=== PATIENT | male | born 1945 | race Caucasian/White ===

== ENCOUNTER 2018-05-15 14:58 | Observation (INO) | payer OTHER ==
[2018-05-15 16:18] LABS: Absolute Lymphocytes (CBC) 1.3 K/uL (0.7-4.9); Absolute Monocytes 0.5 K/uL (0.1-1.3); Absolute Neutrophil 3.8 K/uL (1.8-8.0); Eosinophils % 1.6 % (0-4.4); Hematocrit 29.5 % (39.6-49.0); Lymphocytes % 22.5 % (15.3-44.8); MCH 31.3 pg (27.0-35.0); MCV 93.3 fL (80-100); Monocytes % 8.8 % (3.3-12.3); RBC Red Blood Cell Count 3.17 M/uL (4.33-5.43)
--- NOTE | 2018-05-15 16:44 | EKG ---
Test Date: 2018-05-15 Test Time: 15:27:26 Balancing Machine Operator: AURELIANO MEASUREMENT RESULTS: Intervals: Rate: 56 CA: QRSD: 106 QT: 502 QTc: 484 Weldon: P: CA: QRS: -46 T: 144 INTERPRETIVE STATEMENTS: Atrial fibrillation with slow ventricular response Left anterior fascicular block ST & T wave abnormality, consider lateral ischemia or digitalis effect Prolonged QT Abnormal ECG Compared to ECG 10/04/2017 13:41:55 ST (T wave) deviation still present Electronically Signed On 05-15-18 16:44:09 CDT by Toñito Lockett
[2018-05-15 16:49] LABS: Albumin 3.5 g/dL (3.4-5.0); Bilirubin Direct 0.2 mg/dL (0-0.2); Bilirubin Total 0.7 mg/dL (0.2-1.0); Magnesium 2.9 mg/dL (1.8-2.4); Potassium 4.5 mmol/L (3.5-5.1)
--- NOTE | 2018-05-15 17:12 | ER ---
Nurse's Notes [facility] Name: Bill Thorpe Age: 72 yrs Sex: Male : 1945 Arrival Date: 05/15/2018 Time: 14:59 Bed 7 Private MD: Minal Herndon Diagnosis: Shortness of breath;End stage renal disease Presentation: 05/15 15:21 Presenting complaint: Patient states: " I missed dialysis on Sunday because of some ph family issues, then Sat I had severe diarrhea, cough and sneezing and I wasn't feeling well on Sunday so I missed dialysis the as well." Pt reports that he is dialyzed on Mondays and Fridays, denies CP, reports fatigue and slight SOB. Transition of care: patient was not received from another setting of care. Onset of symptoms was May 15, 2018. Risk Assessment: Do you want to hurt yourself or someone else? Patient reports no desire to harm self or others. Initial Sepsis Screen: Does the patient meet any 2 criteria? No. Patient's initial sepsis screen is negative. Does the patient have a suspected source of infection? No. Patient's initial sepsis screen is negative. Care prior to arrival: None. 15:21 Method Of Arrival: Ambulatory ph 15:21 Acuity: KRUPA 3 ph Historical: - Allergies: 15:24 Morphine; ph - Home Meds: 15:24 carvedilol 25 mg Oral tab 1 tab for Hypertension [Active]; doxazosin 4 mg Oral tab 1 ph tab once daily for Hypertension [Active]; Eliquis 2.5 mg Oral tab 1 tab [Active]; furosemide 40 mg Oral tab 1 tab once daily for EDEMA [Active]; - PMHx: 15:24 Diabetes - IDDM; ESRD; Hypertension; Hepatitis; Irregular heart rate; ph - PSHx: 15:24 cataract sx; ph - Immunization history:: Adult Immunizations up to date. - Social history:: Smoking status: Patient/guardian denies using tobacco. - Ebola Screening: : No symptoms or risks identified at this time. Screenin:00 Abuse screen: Denies threats or abuse. Denies injuries from another. Nutritional sv screening: No deficits noted. Tuberculosis screening: No symptoms or risk factors identified. Fall Risk None identified. Assessment: 16:00 General: Appears in no apparent distress. comfortable, well developed, Behavior is sv calm, cooperative, appropriate for age. Pain: Denies pain. Neuro: Level of Consciousness is awake, alert, obeys commands, Oriented to person, place, time, situation, Gait is steady, Speech is normal. Cardiovascular: Patient's skin is warm and dry. Dialysis shunt: in the left arm, with palpable thrill, with no erythema, with no edema, no bleeding noted. Respiratory: Reports shortness of breath on exertion cough that is non-productive, Respiratory effort is even, unlabored, Respiratory pattern is regular, symmetrical. Derm: Skin is pink, warm \\T\\ dry. 17:31 Reassessment: Patient appears in no apparent distress at this time. No changes from sv previously documented assessment. Patient and/or family updated on plan of care and expected duration. Pain level reassessed. Patient is alert, oriented x 3, equal unlabored respirations, skin warm/dry/pink. 18:16 Reassessment: Patient appears in no apparent distress at this time. No changes from sv previously documented assessment. Patient and/or family updated on plan of care and expected duration. Pain level reassessed. Patient is alert, oriented x 3, equal unlabored respirations, skin warm/dry/pink. Pt given a dinner tray. Vital Signs: 15:24 BP 129 / 71; Pulse 52; Resp 18; Temp 98.1; Pulse Ox 95% on R/A; Weight 94.35 kg; Height ph 5 ft. 11 in. (180.34 cm); 16:15 BP 152 / 73; Pulse 49; Resp 20; Pulse Ox 95% on R/A; sv 17:20 BP 192 / 83; Pulse 47; Resp 18; Pulse Ox 95% on R/A; sv 17:35 BP 165 / 70; Pulse 48; Resp 16; Pulse Ox 95% on R/A; sv 18:16 BP 161 / 68; Pulse 49; Resp 18; Pulse Ox 95% ; sv 15:24 Body Mass Index 29.01 (94.35 kg, 180.34 cm) ph ED Course: 14:59 Patient arrived in ED. sb2 15:03 Minal Herndon is Private Physician. sb2 15:16 Will Lind PA is PHCP. cp 15:16 William Carty MD is Attending Physician. cp 15:23 Triage completed. ph 15:25 Arm band placed on. ph 15:34 EKG done, by neurology technologist. reviewed by Will KUNZ. sm3 15:45 X-ray completed. Portable x-ray completed in exam room. Patient tolerated procedure ag1 well. 15:46 XRAY Chest (1 view) In Process Unspecified. EDMS 15:59 Minal Young, RN is Primary Nurse. sv 16:00 Patient has correct armband on for positive identification. Bed in low position. Call sv light in reach. Pulse ox on. NIBP on. Door closed. Warm blanket given. Head of bed elevated. 16:00 Missed attempt(s): 20 gauge in right forearm. Bleeding controlled, band aid applied, sv catheter tip intact. 16:05 Initial lab(s) drawn, by me, sent to lab. Inserted saline lock: 20 gauge in right sv forearm, using aseptic technique. Blood collected. Flushed right forearm with 5 ml normal saline. 16:53 Notified Nurse Practitioner and/or Physician Grease Renderer of a critical lab result(s), hb Creat 7.0. 17:11 Torrie Elizalde MD is Hospitalizing Provider. cp 19:05 No provider procedures requiring assistance completed. Patient admitted, IV remains in ak1 place. 19:08 Primary Nurse role handed off by Minal Young RN Administered Medications: 17:29 Drug: hydrALAZINE 10 mg Route: IV; Rate: calculated rate; Site: right forearm; sv 17:34 Follow up: Response: No adverse reaction; IV Status: Completed infusion; IV Intake: sv 0.5ml Point of Care Testing: Blood Glucose: 17:57 Blood Glucose: 145 mg/dL; dh3 Ranges: Intake: 17:34 IV: 1ml; Total: 1ml. sv Outcome: 17:12 Decision to Hospitalize by Provider. cp 20:15 Admitted to Med/surg accompanied by [facility], via stretcher, room 213, with chart, Report ak1 called to [place] 20:15 Condition: good 20:15 Instructed on the need for admit. 20:18 Patient left the ED. ak1 Signatures: Dispatcher [employer] EDMI Minal Young RN RN Teressa Morales RN RN ak1 Rose Shafer RN RN Renee Rosa ag1 Will Lind PA PA cp Baxter, Heather, RN RN Idalia Lopez 3 Aneglika Scott 2 Valentina Vitale 3
--- NOTE | 2018-05-15 17:12 | EDPHYS ---
Physician Documentation [facility] Name: Bill Thorpe Age: 72 yrs Sex: Male : 1945 Arrival Date: 05/15/2018 Time: 14:59 Bed 7 Private MD: Minal Herndon ED Physician William Carty HPI: 05/15 15:27 This 72 yrs old Male presents to ER via Ambulatory with complaints of Needs cp Bloodwork, Missed 3 Dialysis. 15:27 Associated signs and symptoms: Pertinent positives: shortness of breath, Pertinent cp negatives: abdominal pain, chest pain, cough, diarrhea, fever, vomiting, wheezing. 15:30 Patient reports scheduled dialysis is on Sunday and Sunday. Last completed dialysis cp over 1 week ago. Historical: - Allergies: 15:24 Morphine; ph - Home Meds: 15:24 carvedilol 25 mg Oral tab 1 tab for Hypertension [Active]; doxazosin 4 mg Oral tab 1 ph tab once daily for Hypertension [Active]; Eliquis 2.5 mg Oral tab 1 tab [Active]; furosemide 40 mg Oral tab 1 tab once daily for EDEMA [Active]; - PMHx: 15:24 Diabetes - IDDM; ESRD; Hypertension; Hepatitis; Irregular heart rate; ph - PSHx: 15:24 cataract sx; ph - Immunization history:: Adult Immunizations up to date. - Social history:: Smoking status: Patient/guardian denies using tobacco. - Ebola Screening: : No symptoms or risks identified at this time. ROS: 15:30 Constitutional: Negative for body aches, chills, fever, poor PO intake. cp 15:30 Eyes: Negative for injury, pain, redness, and discharge. cp 15:30 ENT: Negative for drainage from ear(s), ear pain, sore throat, difficulty swallowing, difficulty handling secretions. 15:30 Cardiovascular: Negative for chest pain, edema, palpitations. 15:30 Respiratory: Positive for shortness of breath, at rest. Negative for cough, wheezing. 15:30 Abdomen/GI: Negative for abdominal pain, vomiting, diarrhea, constipation, black/tarry stool, rectal bleeding. 15:30 Back: Negative for radiated pain. 15:30 Skin: Negative for cellulitis, rash. 15:30 Neuro: Negative for altered mental status, dizziness, syncope, near syncope, weakness. 15:30 All other systems are negative. Exam: 15:32 ECG was reviewed by the Attending Physician. cp 15:35 Constitutional: The patient appears in no acute distress, alert, awake, cp non-diaphoretic, non-toxic, well developed, well nourished. 15:35 Head/Face: Normocephalic, atraumatic. cp 15:35 Eyes: Periorbital structures: appear normal, Conjunctiva: normal, no exudate, no injection, Sclera: no appreciated abnormality, Lids and lashes: appear normal, bilaterally. 15:35 ENT: External ear(s): are unremarkable, Nose: is normal, Mouth: Lips: moist, Oral mucosa: moist, Posterior pharynx: is normal, airway is patent, no erythema, no exudate. 15:35 Neck: ROM/movement: is normal, is supple, without pain, no range of motions limitations, no meningismus, no nuchal rigidity. 15:35 Chest/axilla: Inspection: normal, Palpation: is normal, no crepitus, no tenderness. 15:35 Cardiovascular: Rate: bradycardic, Rhythm: irregularly irregular, Edema: is not appreciated, JVD: is not appreciated. 15:35 Respiratory: the patient does not display signs of respiratory distress, Respirations: normal, no use of accessory muscles, no retractions, no splinting, no tachypnea, labored breathing, is not present, Breath sounds: are clear throughout, no decreased breath sounds, no stridor, no wheezing. 15:35 Abdomen/GI: Inspection: abdomen appears normal, Bowel sounds: active, all quadrants, Palpation: abdomen is soft and non-tender, in all quadrants. 15:35 Back: pain, is absent, ROM is normal. 15:35 Skin: cellulitis, is not appreciated, no rash present. 15:35 Neuro: Orientation: to person, place \T\ time. Mentation: lucid, able to follow commands, Cerebellar function: is grossly normal, Motor: moves all fours, strength is normal, Gait: is steady. Vital Signs: 15:24 BP 129 / 71; Pulse 52; Resp 18; Temp 98.1; Pulse Ox 95% on R/A; Weight 94.35 kg; Height ph 5 ft. 11 in. (180.34 cm); 16:15 BP 152 / 73; Pulse 49; Resp 20; Pulse Ox 95% on R/A; sv 17:20 BP 192 / 83; Pulse 47; Resp 18; Pulse Ox 95% on R/A; sv 17:35 BP 165 / 70; Pulse 48; Resp 16; Pulse Ox 95% on R/A; sv 18:16 BP 161 / 68; Pulse 49; Resp 18; Pulse Ox 95% ; sv 15:24 Body Mass Index 29.01 (94.35 kg, 180.34 cm) ph MDM: 15:17 Patient medically screened. cp 16:00 Differential diagnosis: electrolyte abnormality, acute CO, pulmonary edema, CHF. cp 17:05 Data reviewed: vital signs, nurses notes, lab test result(s), EKG, radiologic studies, cp plain films. 17:05 Test interpretation: by ED physician or midlevel provider: ECG, plain radiologic cp studies. 17:07 Physician consultation: Luis Manuel Call DO was called at 17:07, was contacted at 17:07, cp regarding patient's condition. 17:11 Physician consultation: Torrie Elizalde MD was called at 17:11, was contacted at 17:11, cp regarding admission, to the telemetry unit. 05/15 15:26 Order name: Basic Metabolic Panel; Complete Time: 16:54 05/15 16:55 Interpretation: Normal except: CL 109; GLUC 171; BUN 97; CRE 7.00; GFR 8. 05/15 15:26 Order name: CBC with Diff; Complete Time: 16:21 05/15 16:22 Interpretation: Normal except: RBC 3.17; HGB 9.9; HCT 29.5; PLT 107. 05/15 15:26 Order name: LFT's; Complete Time: 16:54 05/15 17:00 Interpretation: Normal except: ALK 40; A/G 1.0. 05/15 15:26 Order name: Magnesium; Complete Time: 16:54 05/15 17:00 Interpretation: Abnormal: MG 2.9. 05/15 15:26 Order name: NT PRO-BNP; Complete Time: 16:54 05/15 16:55 Interpretation: Abnormal: NT PRO-BNP 79208. 05/15 17:18 Order name: Basic Metabolic Panel EDDC 05/15 15:17 Order name: EKG; Complete Time: 15:17 cp 05/15 15:26 Order name: XRAY Chest (1 view); Complete Time: 19:26 cp 05/15 19:26 Interpretation: Report review. 05/15 17:15 Order name: CONS Physician Consult EDDC 05/15 17:18 Order name: Renal EDDC 05/15 17:18 Order name: Basic Metabolic Panel EDDC 05/15 17:18 Order name: CBC with Automated Diff EDDC 05/15 17:18 Order name: CBC with Automated Diff EDDC 05/15 15:17 Order name: EKG - Nurse/Tech; Complete Time: 16:15 cp 05/15 15:26 Order name: Cardiac monitoring; Complete Time: 17:30 cp 05/15 15:26 Order name: IV Saline Lock; Complete Time: 16:14 cp 05/15 15:26 Order name: Labs collected and sent; Complete Time: 16:14 cp 05/15 15:26 Order name: O2 Per Protocol; Complete Time: 16:14 cp 05/15 15:26 Order name: O2 Sat Monitoring; Complete Time: 16:14 cp 05/15 17:18 Order name: EKG Electrocardiogram EDDC 05/15 17:18 Order name: EKG Electrocardiogram EDDC EC:32 Rate is 56 beats/min. Rhythm is irregularly irregular. QRS interval is prolonged at 106 cp msec. QT interval is prolonged at 502 msec. T waves are Inverted in leads I, aVL, V4, V5. Interpreted by me. Reviewed by me. Administered Medications: 17:29 Drug: hydrALAZINE 10 mg Route: IV; Rate: calculated rate; Site: right forearm; sv 17:34 Follow up: Response: No adverse reaction; IV Status: Completed infusion; IV Intake: sv 0.5ml Point of Care Testing: Blood Glucose: 17:57 Blood Glucose: 145 mg/dL; dh3 Ranges: Critical Glucose Levels:Adult <50 mg/dl or >400 mg/dl <40 mg/dl or >180 mg/dl Disposition: 05/15/18 17:12 Hospitalization ordered by Torrie Elizalde for Observation. Preliminary diagnosis are Shortness of breath, End stage renal disease. - Bed requested for Telemetry/MedSurg (observation). - Status is Observation. ak1 - Condition is Stable. - Problem is an acute exacerbation. - Symptoms are unchanged. UTI on Admission? No Addendum: 05/17/2018 20:00 Co-signature as Attending Physician, William Carty MD I agree with the assessment and w a plan of care. Signatures: Dispatcher [employer] Minal Edwards, RN Aaliyah Hernandez RN RN dw Krenek, Amber, RN RN ak1 Rose Shafer RN Will Spain ph, PA PA William Llamas MD MD wa Corrections: (The following items were deleted from the chart) 05/15 18:45 17:12 Hospitalization Ordered by Torrie Elizalde MD for Observation. Preliminary dw diagnosis is Shortness of breath; End stage renal disease. Bed requested for Telemetry/MedSurg (observation). Status is Observation. Condition is Stable. Problem is an acute exacerbation. Symptoms are unchanged. UTI on Admission? No. cp 20:18 18:45 05/15/2018 17:12 Hospitalization Ordered by Torrie Elizalde MD for Observation. ak1 Preliminary diagnosis is Shortness of breath; End stage renal disease. Bed requested for Telemetry/MedSurg (observation). Status is Observation. Condition is Stable. Problem is an acute exacerbation. Symptoms are unchanged. UTI on Admission? No. dw
[2018-05-15] MEDS ORDERED: ACETAMINOPHEN 500 MG TAB PO PRN (17:15)
[2018-05-15] MEDS ORDERED: HYDRALAZINE HCL 20 MG/ML VIAL ONE (17:28)
--- NOTE | 2018-05-15 18:15 | RAD REPORT ---
EXAM DESCRIPTION: Wilian Single View05/15/2018 3:48 pm CLINICAL HISTORY: sob COMPARISON: September 2017 FINDINGS: The right base remains hazy. The left lung appears clear. The heart is mildly enlarged. IMPRESSION: Right base remains hazy probably representing a combination of small to moderate pleural effusion and atelectasis
[2018-05-15 20:39] VITALS: BMI 29.9
[2018-05-15] MEDS: APIXABAN 2.5 MG TABLET PO SCH (22:15)
[2018-05-15] MEDS ORDERED: NA CHLORIDE 0.9% 1,000 ML IV PRN (22:32)
[2018-05-15] MEDS ORDERED: MANNITOL 25% 12.5 GM/50 ML VIAL IV PRN (22:32)
[2018-05-15 22:34] LABS: Urine Appearance CLEAR; Urine Bilirubin NEGATIVE (NEG); Urine Blood NEGATIVE (NEG); Urine Color YELLOW; Urine Glucose 1+ (NEG); Urine Protein 2+ (NEG); Urine Specific Gravity 1.015 (1.005-1.030); Urine Urobilinogen 0.2 mg/dL (0.2-1.0)
[2018-05-15 22:39] LABS: Urine Microscopic Reflex ORDER UMIC
[2018-05-15] MEDS ORDERED: EPOETIN ALFA 10,000 UNIT/ML VIAL IV SCH (22:45)
[2018-05-15 22:53] LABS: Urine Bacteria <20 /HPF (NONE SEEN); Urine Culture Reflex Order REFLEXED; Urine RBC <5 /HPF (NONE SEEN)
[2018-05-15] MEDS ORDERED: ALBUMIN HUMAN 25% 50 ML IV SCH (23:00)
[2018-05-16] MEDS ORDERED: DOXAZOSIN 2 MG TAB PO ONE (01:28)
[2018-05-16] MEDS ORDERED: HYDRALAZINE HCL 20 MG/ML VIAL IV ONE (01:28)
[2018-05-16] MEDS ORDERED: D50W 25 GM/50 ML SYRINGE IV PRN (01:29)
[2018-05-16] MEDS ORDERED: INSULIN 70/30 100 UNITS/ML SQ ONE ×2 (01:29)
[2018-05-16] MEDS ORDERED: GLUCAGON 1 MG/VIAL IM PRN (01:29)
[2018-05-16 04:58] VITALS: O2SAT 91
[2018-05-16 05:18] LABS: Absolute Monocytes 0.5 K/uL (0.1-1.3); Basophils % 0.5 % (0-1.3); Eosinophils % 1.6 % (0-4.4); Hematocrit 27.2 % (39.6-49.0); Lymphocytes % 18.4 % (15.3-44.8); MCH 32.2 pg (27.0-35.0); MCV 93.5 fL (80-100); MPV 8.9 fL (7.6-11.3); Monocytes % 8.6 % (3.3-12.3); RBC Red Blood Cell Count 2.91 M/uL (4.33-5.43)
[2018-05-16 05:35] LABS: Phosphorus 6.8 mg/dL (2.5-4.9); Potassium 4.4 mmol/L (3.5-5.1)
--- NOTE | 2018-05-16 06:43 | P.HP ---
Certification for Inpatient Patient admitted to: Observation With expected LOS: <2 Midnights Patient will require the following post-hospital care: None Practitioner: I am a practitioner with admitting privileges, knowledge of patient current condition, hospital course, and medical plan of care. Services: Services provided to patient in accordance with Admission requirements found in Title 42 Section 412.3 of the Code of Federal Regulations Patient History Date of Service: 05/15/18 Reason for admission: Fluid overload History of Present Illness: Patient is a 72-year-old gentleman who came into the hospital with fluid overload. Patient has missed his dialysis appointments for the last 2-3 sessions. He has actually had a stomach virus and has been having some diarrhea. Patient came into the hospital because he was feeling really poorly and felt his labs were abnormal. In the emergency room, patient had multiple studies performed. Chest x-ray revealed a small pleural effusion. Patient's labs revealed anemia along with significant uremia. Otherwise, electrolytes were within normal limits. Patient was admitted to the hospital for hemodialysis. Allergies morphine Adverse Reaction (Verified 05/15/18 22:56) confusion Home Medications: Apixaban [Eliquis] 10 mg PO DAILY 05/15/18 Calcium Acetate 1 tab PO TIDWM 05/15/18 Carvedilol 1 tab PO BID 05/15/18 Doxazosin Mesylate 4 mg PO BID 05/15/18 Furosemide 40 mg PO BID 05/15/18 Insulin Glargine,Hum.rec.anlog [Tougertrudiso Solostar] 20 unit SQ DAILY 05/15/18 - Past Medical/Surgical History Has patient received pneumonia vaccine in the past: Yes Diabetic: Yes -: DIABETES -: HTN -: ENLARGED AORTA -: AV regurgitation -: CHF -: COLONOSCOPY -: DETACHED RETINA REPAIR -: scalp surgery - Family History Father Medical History: Hypertension Mother Medical History: Hypertension, Diabetes Sister Medical History: Cancer - Social History Smoking Status: Never smoker Alcohol use: Yes CD- Drugs: No Place of Residence: Home Review of Systems 10-point ROS is otherwise unremarkable Physical Examination - Vital Signs Temperature: 97.1 F Blood Pressure: 148/82 Pulse: 62 Respirations: 16 Pulse Ox (%): 91 - Physical Exam General: Alert, In no apparent distress, Oriented x3 HEENT: Atraumatic, PERRLA, Mucous membr. moist/pink, EOMI, Sclerae nonicteric Neck: Supple, 2+ carotid pulse no bruit, No LAD, Without JVD or thyroid abnormality Respiratory: Diminished, Crackles/rales Cardiovascular: Regular rate/rhythm, Normal S1 S2, No murmurs Gastrointestinal: Normal bowel sounds, Soft and benign, Non-distended, No tenderness Musculoskeletal: No clubbing, No swelling, No tenderness Integumentary: No rashes Neurological: Normal gait, Normal speech, Normal strength at 5/5 x4 extr, Normal tone, Sensation intact, Cranial nerves 3-12 intact, Normal affect Lymphatics: No axilla or inguinal lymphadenopathy - Studies Laboratory Data (last 24 hrs) 05/15/18 16:05: WBC 5.8, Hgb 9.9 L, Hct 29.5 L, Plt Count 107 L 05/15/18 16:05: Sodium 142, Potassium 4.5, BUN 97 H, Creatinine 7.00 H*, Glucose 171 H, Magnesium 2.9 H, Total Bilirubin 0.7, AST 15, ALT 28, Alkaline Phosphatase 40 L Assessment & Plan - Problems (Diagnosis) (1) ESRD (end stage renal disease) Onset Date: 05/16/18 Current Visit: Yes Status: Acute (2) SOB (shortness of breath) Onset Date: 05/16/18 Current Visit: Yes Status: Acute (3) Acute exacerbation of CHF (congestive heart failure) Onset Date: 10/01/17 Current Visit: No Status: Acute Qualifiers: (4) Dyspnea Onset Date: 11/13/14 Current Visit: No Status: Acute (5) Pleural effusion Onset Date: 10/01/17 Current Visit: No Status: Acute (6) Respiratory distress Onset Date: 10/01/17 Current Visit: No Status: Acute (7) Diabetes Onset Date: 03/08/15 Current Visit: No Status: Chronic (8) HTN (hypertension) Onset Date: 03/08/15 Current Visit: No Status: Chronic Qualifiers: (9) Hepatitis C Current Visit: No Status: Chronic Qualifiers: - Plan Plan: 1. nephrology consultation for hemodialysis 2. resume blood pressure medications 3. strict blood pressure and blood sugar control 4. recheck electrolytes 5. we may need to dialyze more extensively to get uremia down 6. GI and DVT prophylaxis - Advance Directives Does patient have a Living Will: Yes Does patient have a Durable POA for Healthcare: Yes - Code Status/Comfort Care Code Status Assessed: Yes Code Status: Full Code Critical Care: No Time Spent Managing PTS Care (In Minutes): 50
[2018-05-16] MEDS: CA ACETATE 667 MG CAP PO SCH ×3 (08:18→16:47)
[2018-05-16 08:43] LABS: Blood Morphology Comment NOT SEEN (NOT SEEN); Platelet Estimate DECR; Urine White Blood Cell Casts OK
[2018-05-16] MEDS: APIXABAN 2.5 MG TABLET PO SCH (08:45)
[2018-05-16] MEDS ORDERED: DOXAZOSIN 4 MG TAB PO SCH (09:00)
[2018-05-16] MEDS ORDERED: APIXABAN 5 MG TABLET PO SCH (09:00)
[2018-05-16] MEDS ORDERED: INSULIN DETEMIR 100 UNIT/1 ML INSULIN SQ SCH (09:00)
[2018-05-16] MEDS ORDERED: CARVEDILOL 12.5 MG TAB PO SCH (09:00)
[2018-05-16] MEDS ORDERED: FUROSEMIDE 40 MG TABLET PO SCH (09:00)
--- NOTE | 2018-05-16 10:57 | P.PN ---
Subjective Date of Service: 05/16/18 Chief Complaint: Fluid overload Subjective: No new changes (Labs reviewed this morning. Patient was slight elevation in creatinine. Patient will be dialyzed this afternoon.) <Ana Bocanegrashua - Last Filed: 05/16/18 10:53> Date of Service: 05/16/18 <WilfredoKailnalfonso - Last Filed: 05/16/18 14:45> Review of Systems 10-point ROS is otherwise unremarkable <MerlinerenAna valdiviaWarren - Last Filed: 05/16/18 10:53> Physical Examination - Vital Signs Temperature: 97.5 F Blood Pressure: 126/66 Pulse: 46 Respirations: 12 Pulse Ox (%): 91 - Physical Exam General: Alert, In no apparent distress, Oriented x3, Cooperative HEENT: Normocephalic, PERRLA, Mucous membr. moist/pink, EOMI Neck: Supple, 2+ carotid pulse no bruit Respiratory: Clear to auscultation bilaterally, Normal air movement Cardiovascular: Normal pulses, Regular rate/rhythm, Normal S1 S2 Capillary refill: <2 Seconds Gastrointestinal: Normal bowel sounds, Soft and benign, Non-distended Musculoskeletal: No clubbing, No swelling, No contractures, No erythema Integumentary: No rashes, No breakdown Neurological: Normal speech, Normal strength at 5/5 x4 extr, Normal tone, Sensation intact, Cranial nerves 3-12 intact - Studies Laboratory Data (last 24 hrs) 05/15/18 16:05: WBC 5.8, Hgb 9.9 L, Hct 29.5 L, Plt Count 107 L 05/15/18 16:05: Sodium 142, Potassium 4.5, BUN 97 H, Creatinine 7.00 H*, Glucose 171 H, Magnesium 2.9 H, Total Bilirubin 0.7, AST 15, ALT 28, Alkaline Phosphatase 40 L <Ana Bocanegrashua - Last Filed: 05/16/18 10:53> - Studies Laboratory Data (last 24 hrs) 05/15/18 16:05: WBC 5.8, Hgb 9.9 L, Hct 29.5 L, Plt Count 107 L 05/15/18 16:05: Sodium 142, Potassium 4.5, BUN 97 H, Creatinine 7.00 H*, Glucose 171 H, Magnesium 2.9 H, Total Bilirubin 0.7, AST 15, ALT 28, Alkaline Phosphatase 40 L <Edna Villalobos - Last Filed: 05/16/18 14:45> Assessment And Plan - Current Problems (Diagnosis) (1) ESRD (end stage renal disease) Onset Date: 05/16/18 Current Visit: Yes Status: Acute (2) SOB (shortness of breath) Onset Date: 05/16/18 Current Visit: Yes Status: Acute (3) Acute exacerbation of CHF (congestive heart failure) Onset Date: 10/01/17 Current Visit: No Status: Acute (4) Atrial flutter Current Visit: No Status: Acute - Plan Dr. Call was consulted and saw the patient this morning. I have talked to Dr. Call and agrees that patient needs to be dialyzed. Dialysis nurse has been notified and will be dialyzing patient either late this morning or early this afternoon. Patient is to be discharged home as long as he is stable and is to follow up at dialysis again tomorrow for another treatment. Otherwise patient no acute distress and will be able to go home Discharge Plan: Home <Warren Bocanegra - Last Filed: 05/16/18 10:53> - Plan Case discussed with PA. Agree with above plan - Code Status/Comfort Care Code Status Assessed: Yes <Edna Villalobos - Last Filed: 05/16/18 14:45>
--- NOTE | 2018-05-16 11:47 | P.DS ---
Admission Date: 05/15/18 Discharge Date: 05/16/18 Reason for Admission: Fluid overload - Problems (1) ESRD (end stage renal disease) Onset Date: 05/16/18 Current Visit: Yes Status: Acute (2) SOB (shortness of breath) Onset Date: 05/16/18 Current Visit: Yes Status: Acute (3) Acute exacerbation of CHF (congestive heart failure) Onset Date: 10/01/17 Current Visit: No Status: Acute (4) Atrial flutter Current Visit: No Status: Acute Brief History of Present Illness: The patient was admitted recently in the emergency department due to fluid volume overload. Patient has a history of CHF and end stage renal disease Hospital Course: Patient has been stable throughout visit and hospital. Labs have been monitored. Nephrology has been consulted and patient has been dialyzed. The patient is to have follow up with the dialysis center tomorrow to be dialyzed again. Patient is without any complaint at this time and is at baseline. <Warren Bocanegra - Last Filed: 05/16/18 11:37> Admission Date: 05/15/18 Discharge Date: 05/16/18 Hospital Course: Case discussed with PA. Agree with above plan Symptoms improved ok to DC. <Edna Villalobos - Last Filed: 05/16/18 15:04> Disposition: ROUTINE DISCHARGE Discharge Condition: GOOD Vital Signs/Physical Exam: Temp Pulse Resp BP Pulse Ox 97.5 F 46 L 12 126/66 91 05/16/18 10:57 05/16/18 10:57 05/16/18 10:57 05/16/18 10:57 05/16/18 10:57 General: Alert, In no apparent distress, Oriented x3, Cooperative HEENT: PERRLA, Mucous membr. moist/pink, EOMI Neck: Supple, 2+ carotid pulse no bruit Respiratory: Clear to auscultation bilaterally, Normal air movement Cardiovascular: Normal pulses, Regular rate/rhythm, Normal S1 S2, Edema Capillary refill: <2 Seconds Gastrointestinal: Normal bowel sounds, Soft and benign, Non-distended, No tenderness Musculoskeletal: No clubbing, No swelling, No contractures, No erythema, No tenderness, No warmth Integumentary: No rashes, No breakdown, No significant lesion, No tenderness/ swelling, No erythema, No warmth, No cyanosis Neurological: Normal speech, Normal strength at 5/5 x4 extr, Normal tone, Sensation intact, Cranial nerves 3-12 intact, Normal reflexes 2+, Normal affect Laboratory Data at Discharge: WBC 5.6 K/uL (4.3-10.9) 05/16/18 04:16 Hgb 9.4 g/dL (13.6-17.9) L 05/16/18 04:16 Hct 27.2 % (39.6-49.0) L 05/16/18 04:16 Plt Count 86 K/uL (152-406) L 05/16/18 04:16 Sodium 143 mmol/L (136-145) 05/16/18 04:16 Potassium 4.4 mmol/L (3.5-5.1) 05/16/18 04:16 BUN 103 mg/dL (7-18) H 05/16/18 04:16 Creatinine 7.10 mg/dL (0.55-1.3) H* 05/16/18 04:16 Glucose 238 mg/dL (74-106) H 05/16/18 04:16 Phosphorus 6.8 mg/dL (2.5-4.9) H 05/16/18 04:16 Magnesium 2.9 mg/dL (1.8-2.4) H 05/15/18 16:05 Total Bilirubin 0.7 mg/dL (0.2-1.0) 05/15/18 16:05 AST 15 U/L (15-37) 05/15/18 16:05 ALT 28 U/L (12-78) 05/15/18 16:05 Alkaline Phosphatase 40 U/L (45-117) L 05/15/18 16:05 <Warren Bocanegra - Last Filed: 05/16/18 11:37> Vital Signs/Physical Exam: Temp Pulse Resp BP Pulse Ox 97.5 F 46 L 12 126/66 91 05/16/18 10:57 05/16/18 10:57 05/16/18 10:57 05/16/18 10:57 05/16/18 10:57 Laboratory Data at Discharge: WBC 5.6 K/uL (4.3-10.9) 05/16/18 04:16 Hgb 9.4 g/dL (13.6-17.9) L 05/16/18 04:16 Hct 27.2 % (39.6-49.0) L 05/16/18 04:16 Plt Count 86 K/uL (152-406) L 05/16/18 04:16 Sodium 143 mmol/L (136-145) 05/16/18 04:16 Potassium 4.4 mmol/L (3.5-5.1) 05/16/18 04:16 BUN 103 mg/dL (7-18) H 05/16/18 04:16 Creatinine 7.10 mg/dL (0.55-1.3) H* 05/16/18 04:16 Glucose 238 mg/dL (74-106) H 05/16/18 04:16 Phosphorus 6.8 mg/dL (2.5-4.9) H 05/16/18 04:16 Magnesium 2.9 mg/dL (1.8-2.4) H 05/15/18 16:05 Total Bilirubin 0.7 mg/dL (0.2-1.0) 05/15/18 16:05 AST 15 U/L (15-37) 05/15/18 16:05 ALT 28 U/L (12-78) 05/15/18 16:05 Alkaline Phosphatase 40 U/L (45-117) L 05/15/18 16:05 <Edna Villalobos - Last Filed: 05/16/18 15:04> Patient Discharge Instructions: To Follow up with Dr. Call tomorrow at dialysis center for dialysis again. To Follow up with PCP in 2-3 days. To continue home medications as prescribed Diet: Renal Activity: Ad norm <Warren Bocanegra - Last Filed: 05/16/18 11:37> <Edna Villalobos - Last Filed: 05/16/18 15:04> Home Medications: Apixaban [Eliquis] 10 mg PO DAILY 05/15/18 Calcium Acetate 1 tab PO TIDWM 05/15/18 Carvedilol 1 tab PO BID 05/15/18 Doxazosin Mesylate 4 mg PO BID 05/15/18 Furosemide 40 mg PO BID 05/15/18 Insulin Glargine,Hum.rec.anlog [Maria Eugenia Zayas] 20 unit SQ DAILY 05/15/18
--- NOTE | 2018-05-16 13:52 | EKG ---
Test Date: 2018-05-16 Test Time: 08:02:44 [employer] Et[employer] Developer: TAMEKA MEASUREMENT RESULTS: Intervals: Rate: 57 GA: QRSD: 100 QT: 482 QTc: 469 [place]: P: GA: QRS: -49 T: -44 INTERPRETIVE STATEMENTS: Atrial fibrillation with slow ventricular response Left anterior fascicular block Cannot rule out Inferior infarct (masked by fascicular block?), age undetermined Abnormal ECG Compared to ECG 05/15/2018 15:27:26 Myocardial infarct finding now present ST (T wave) deviation no longer present Possible ischemia no longer present Prolonged QT interval no longer present Electronically Signed On 05-16-18 13:51:41 CDT by Champ Parker
[2018-05-16 17:36] VITALS: BP 142/83; TEMP 98.7
--- NOTE | 2018-05-16 21:59 | P.CNS ---
Date of Consult: 05/16/18 Reason for Consult: ESRD Requesting Physician: Lien Kim Chief Complaint: Fluid overload History of Present Illness: Patient is a 72-year-old gentleman who came into the hospital with fluid overload. Patient has missed his dialysis appointments for the last 2-3 sessions. He has actually had a stomach virus and has been having some diarrhea. Patient came into the hospital because he was feeling really poorly and felt his labs were abnormal. In the emergency room, patient had multiple studies performed. Chest x-ray revealed a small pleural effusion. Patient's labs revealed anemia along with significant uremia. Otherwise, electrolytes were within normal limits. Patient was admitted to the hospital for hemodialysis. Allergies morphine Adverse Reaction (Verified 05/15/18 22:56) confusion Home medications list reviewed: Yes Home Medications: Calcium Acetate 1 tab PO TIDWM 05/15/18 Carvedilol 1 tab PO BID 05/15/18 Doxazosin Mesylate 4 mg PO BID 05/15/18 Furosemide 40 mg PO BID 05/15/18 Insulin Glargine,Hum.rec.anlog [Todrew Solnelly] 20 unit SQ DAILY 05/15/18 Apixaban [Eliquis *] 2.5 mg PO BID #30 tablet 05/16/18 - Past Medical/Surgical History Diabetic: Yes -: DIABETES -: HTN -: ENLARGED AORTA -: AV regurgitation -: CHF -: COLONOSCOPY -: DETACHED RETINA REPAIR -: scalp surgery - Family History Father Medical History: Hypertension Mother Medical History: Hypertension, Diabetes Sister Medical History: Cancer - Social History Smoking Status: Never smoker Alcohol use: Yes CD- Drugs: No Caffeine use: Yes Place of Residence: Home Review of Systems 10-point ROS is otherwise unremarkable General: Weakness Respiratory: SOB with Excertion Physical Examination Temp Pulse Resp BP Pulse Ox 98.7 F 73 12 142/83 H 90 L 05/16/18 16:00 05/16/18 16:00 05/16/18 16:00 05/16/18 16:00 05/16/18 16:00 General: Oriented x3, Cooperative HEENT: Normocephalic, Mucous membr. moist/pink Neck: Supple, JVD distended Respiratory: Diminished Cardiovascular: Regular rate/rhythm, No rubs, Edema Gastrointestinal: Soft and benign, Non-distended, No guarding Musculoskeletal: No clubbing, No contractures Integumentary: No rashes, No cyanosis Neurological: Normal speech Blood work reviewed in the chart. BUN 103 Imagings Data: CXR: CHF Conclusions/Impression: A/ ESRD on HD. HTN with CKD. A/C Diastolic CHF. Anemia in chronic illness. JERALD/ Secondary HyperPTH. P/ Continue current POC and Medications. Arrange for acute HD. Low sodium diet. Restart home medications as indicated. Give Epo. No NSAIDs. AM labs. Daily weight. Case discussed with attending. Thank you kindly for the consultation.
== END 2018-05-16 17:49 | disposition home or self-care (01) ==
LOC: ER 14:58 → ERHOLD 17:14 → 2ND 19:18
PROVIDERS: ADMIT Family Medicine; ATTEND Hospitalist
PROC: 5A1D70Z Performance of Urinary Filtration, Intermittent, Less than 6 Hours Per Day (ICD-10-PCS; principal; 2018-05-16)
DX: I13.2 Hypertensive heart and chronic kidney disease with heart failure and with stage 5 chronic kidney disease, or end stage renal disease (principal); E11.22 Type 2 diabetes mellitus with diabetic chronic kidney disease; N18.6 End stage renal disease; I50.33 Acute on chronic diastolic (congestive) heart failure; D63.1 Anemia in chronic kidney disease; I48.92 Unspecified atrial flutter
CPT/HCPCS: 36415; 71045; 80048 ×2; 80076; 82962 ×6; 83735; 83880; 84100; 85025 ×2; 87086; 87088; 93005 ×2; 96374; 99285; G0257; G0378 ×2; J0360 ×2; 81003; 81015

== ENCOUNTER 2018-12-28 19:53 | Emergency (ER) | payer OTHER ==
[2018-12-28 20:36] LABS: Absolute Monocytes 0.5 K/uL (0.1-1.3); Absolute Neutrophil 3.4 K/uL (1.8-8.0); Basophils % 0.5 % (0-1.3); Eosinophils % 2.5 % (0-4.4); Hematocrit 32.5 % (39.6-49.0); Lymphocytes % 19.7 % (15.3-44.8); MPV 8.5 fL (7.6-11.3); Monocytes % 10.2 % (3.3-12.3); RBC Red Blood Cell Count 3.41 M/uL (4.33-5.43)
[2018-12-28] MEDS ORDERED: FENTANYL CITR 100 MCG/2 ML ONE ×2 (20:47→23:09)
[2018-12-28] MEDS ORDERED: ONDANSETRON 4 MG/2 ML VIAL ONE ×2 (20:48→22:02)
[2018-12-28] MEDS ORDERED: FAMOTIDINE 20 MG/2 ML VIAL IV ONE (20:48)
[2018-12-28 20:52] LABS: Protime INR 1.1
[2018-12-28 21:17] LABS: Albumin 3.7 g/dL (3.4-5.0); Bilirubin Direct 0.2 mg/dL (0-0.2); Bilirubin Total 0.4 mg/dL (0.2-1.0); Magnesium 2.6 mg/dL (1.8-2.4); Potassium 4.7 mmol/L (3.5-5.1); Protein, Total 7.3 g/dL (6.4-8.2); Troponin (Emerg Dept Use Only) 0.02 ng/mL (0.0-0.045)
[2018-12-28] MEDS ORDERED: HYDRALAZINE HCL 20 MG/ML VIAL ONE (22:18)
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
[2018-12-29] MEDS ORDERED: FENTANYL CITR 100 MCG/2 ML ONE ×2 (00:46→01:00)
[2018-12-29 01:57] VITALS: BP 163/70; TEMP 98.8; O2SAT 96
--- NOTE | 2018-12-29 08:30 | RAD REPORT ---
EXAM DESCRIPTION: RAD - Chest Single View - 12/28/2018 8:56 pm CLINICAL HISTORY: Chest pain, abdominal distention COMPARISON: May 15 TECHNIQUE: AP portable chest image was obtained 9 hours . FINDINGS: Lung volumes are low. Right hemidiaphragm elevation again noted. Right pleural effusion is evident not substantially different from the prior imaging. The could be atelectasis and/ or infiltr ate in the right base. No significant left lung field finding. Mild cardiomegaly is present exaggerat ed by shallow inspiration and portable imaging. Vasculature within limits of normal. No pneumothorax. No acute bony abnormality seen. No acute aortic findings suspected. IMPRESSION: Shallow inspiration exam showing small right pleural effusions similar to April 2018. Right lung base infiltrate and/ or atelectasis.
--- NOTE | 2018-12-30 09:15 | EKG ---
Test Date: 2018-12-28 Test Time: 20:07:39 Oil Well Service Operator: SETH MEASUREMENT RESULTS: Intervals: Rate: 62 NM: QRSD: 104 QT: 468 QTc: 475 [place]: P: NM: QRS: 129 T: -20 INTERPRETIVE STATEMENTS: Atrial fibrillation Right axis deviation ST & T wave abnormality, consider inferior ischemia Abnormal ECG Compared to ECG 05/16/2018 08:02:44 Left posterior fascicular block now present ST (T wave) deviation now present Possible ischemia now present Left anterior fascicular block no longer present Myocardial infarct finding no longer present Electronically Signed On 12-30-18 09:15:17 CLARIFYING PLANT OPERATOR by Toñito Lockett
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
== END 2018-12-29 01:02 | disposition short-term general hospital (02) ==
LOC: ER 19:53
DX: S22.41XA Multiple fractures of ribs, right side, initial encounter for closed fracture (principal); S22.050A Wedge compression fracture of T5-T6 vertebra, initial encounter for closed fracture; S22.060A Wedge compression fracture of T7-T8 vertebra, initial encounter for closed fracture; S32.030A Wedge compression fracture of third lumbar vertebra, initial encounter for closed fracture; J91.8 Pleural effusion in other conditions classified elsewhere; K66.8 Other specified disorders of peritoneum; V49.9XXA Car occupant (driver) (passenger) injured in unspecified traffic accident, initial encounter; E11.22 Type 2 diabetes mellitus with diabetic chronic kidney disease; I12.0 Hypertensive chronic kidney disease with stage 5 chronic kidney disease or end stage renal disease; N18.6 End stage renal disease; I48.91 Unspecified atrial fibrillation; Z79.01 Long term (current) use of anticoagulants; Z88.5 Allergy status to narcotic agent
CPT/HCPCS: 93005; 85025; 80048; 36415; 86900; 83735; 86850; 85610; 86901; 80076; 84484; 83690; 83880; 70450; 72125; 71260; 74177; 71045; 99285; Q9967; J0360; J3010 ×4; J2405 ×2

== ENCOUNTER 2020-03-29 11:05 | Inpatient (IN) | payer OTHER ==
[2020-03-29 11:39] LABS: Absolute Lymphocytes (CBC) 1.2 K/uL (0.7-4.9); Basophils % 1.2 % (0-1.3); Hematocrit 34.4 % (39.6-49.0); Lymphocytes % 11.3 % (15.3-44.8); MPV 8.5 fL (7.6-11.3); RBC Red Blood Cell Count 3.57 M/uL (4.33-5.43)
--- NOTE | 2020-03-29 11:49 | RAD REPORT ---
EXAM DESCRIPTION: RAD - Chest Single View - 03/29/2020 11:43 am CLINICAL HISTORY: DYSPNEA COMPARISON: Portable December 2018 TECHNIQUE: AP portable chest image was obtained 03/29/2020 11:43 am . FINDINGS: Exam has motion degradation limitation. Lung volumes are low. No peripheral mass or consol idation of the left hemithorax identifiable. Accentuated interstitial pattern is believed to be mostl y motion artifact. Patient has a large pleural effusion filling most of the right hemithorax. A small portion of right upper lobe is aerated. Atelectasis, infiltrate or mass of the lower right lung fiel d cannot be assessed. Heart size is probably within normal limits. Most of the right side of the heart is obscured. Trache a is in the midline. No pneumothorax. No acute bony abnormality seen. No acute aortic findings suspec em. IMPRESSION: Large pleural effusion filling the majority of the right hemithorax.
[2020-03-29 12:15] LABS: Albumin 2.9 g/dL (3.4-5.0); Bilirubin Direct 0.2 mg/dL (0-0.2); Bilirubin Total 1.3 mg/dL (0.2-1.0); Magnesium 2.7 mg/dL (1.8-2.4); Potassium 4.7 mmol/L (3.5-5.1); Protein, Total 7.1 g/dL (6.4-8.2); Troponin (Emerg Dept Use Only) 0.03 ng/mL (0.0-0.045)
[2020-03-29] MEDS ORDERED: NA CHLORIDE 0.9% 1,000 ML ONE (13:04)
--- OUTSIDE RECORDS SUMMARY | 2020-03-29 13:51 | XMS REPORT | Continuity of Care Document ---
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 BLOOD GLUCOSE MONITORING. 3. ACUTE HYPOXEMIA FOLLOWING TRAUMA. PAT IENT WITH HIGH O2-REQUIREMENTS AT THIS TIME WITH DECREASED INCENTIVE SPIROMETRY VOLUMES. WILL WORK ON ACHIEVING BETTER PAIN CONTROL AND ADD BREATHING TREATMENTS, THEN RE-ASSESS. 4. HYPOVOLEMIC SHOCK. CONTINUE GENTLE VO LUME EXPANSION. CONSIDER INVASIVE MONITORING. PENDING FOLLOW-UP BASE DEFICIT AND LACTATE. RE-ASSESS NEED FOR STICU TRANSFER. 5. ANEMIA OF CHRONIC DISEASE/RENAL FAILU RE. NO NEED FOR TRANSFUSIONS AT THIS TIME. MONITOR HEMOGLOBIN BUT REFRAIN FROM EXCESSIVE PHLEBOTOMIES. 6. END-STAGE RENAL DISEASE. PATIENT WITH AVF ON M-W- DIALYSIS. WILL FOLLOW HIS ELECTROLYTES AND VOLUE STATUS CLOSELY. CURRENTLY, HIS POTASSIUM, ACIDOSIS, AND VOLUME ARE UNDER CONTROL. 7. COAGULOPATHY, ACUTE, ACQUIRED. HOLD O N TRANSFUSION AT THIS TIME. STOPPING APIXABAN. FOLLOW-UP TEG IN AM. 8. ATRIAL FIBRILLATION. PATIENT IS 73YO ON APIXABAN. HOLD ON REVERSAL AT THIS TIME. HOWEVER, WILL D/C NOAC. WHILE CHADS-2 YIELDS INCREASED RISK OF STROKE, WOULD EITHER (1) WITHHOLD FUTURE ANTI-COAGULATI ON, (2) UTILIZE WARFARIN WITH QUICK AND PREDICTABLE REVERSIBILITY (AND WIDESPREAD AVAILABILITY OF REVERSAL AGENTS), OR (3) SWITCH TO ASA ALONE, RATHER THAN THESE LESS PREDICTABLE AND REVERSED NEWER AGENT. TOTAL CRITICAL CARE TIME SPENT, EXCLUSIVE OF ANY PROCEDURES, IS 40 MINUTES. Plan of Care No Data Provided for This Section Social History Social History Date Source Social History TypeResponse 12/29/2018 [facility] Substance Abuse Use: None. Alcohol Never Smoking Status Never smoker; Exposure to Tobacco Smoke None; Cigarette Smoking Last 365 Days No; Reg Smoking Cessation Counseling No entered on: 12/29/18 Family History No Data Provided for This Section Advance Directives No Data Provided for This Section Functional Status No Data Provided for This Section
[2020-03-29] MEDS ORDERED: DOPAMINE/D5W 400 MG/250 ML BAG IV ONE (16:15)
[2020-03-29] MEDS ORDERED: GLUCAGON 1 MG/VIAL ONE (16:15)
--- NOTE | 2020-03-29 16:27 | P.HP ---
Certification for Inpatient Patient admitted to: Inpatient With expected LOS: >2 Midnights Patient will require the following post-hospital care: None Practitioner: I am a practitioner with admitting privileges, knowledge of patient current condition, hospital course, and medical plan of care. Services: Services provided to patient in accordance with Admission requirements found in Title 42 Section 412.3 of the Code of Federal Regulations Patient History Date of Service: 03/29/20 Primary Care Provider: Felicitas Herndon NP; Nephrology-Dr. Call Reason for admission: Shortness of breath History of Present Illness: 74-year-old male with history of end-stage renal disease on hemodialysis, atrial fibrillation on chronic anti coagulation therapy, diabetes, and hypertension. Patient reported increasing shortness of breath. This has gotten worse over this last several days. He denies any fever, chills, cough or congestion. Patient came to the ER for further evaluation. In the ER patient was evaluated. Chest x-ray revealed a large pleural effusion. Patient with history of pleural effusion in the past. White count 10.7, hemoglobin 11.3. Sodium 135, potassium 4.7. BUN of 93, creatinine 9.5 with a GFR 5. Glucose 191. BNP elevated. Troponin unremarkable. Blood pressures were slightly low. Patient given normal saline bolus in the emergency room. Patient admitted for further evaluation and treatment. When I saw the patient ER, he appeared stable. Patient required oxygen per nasal cannula. Patient admitted to ICU for close monitoring. Case discussed with nephrology and pulmonology. Allergies morphine Adverse Reaction (Verified 05/15/18 22:56) confusion Home medications list reviewed: Yes Home Medications: Calcium Acetate 1 tab PO TIDWM 05/15/18 Doxazosin Mesylate 4 mg PO BID 05/15/18 Furosemide 40 mg PO BID 05/15/18 Insulin Glargine,Hum.rec.anlog [[place] Solostar] 20 unit SQ DAILY 05/15/18 carvediloL [Carvedilol] 1 tab PO BID 05/15/18 Apixaban [Eliquis *] 2.5 mg PO BID #30 tablet 05/16/18 - Past Medical/Surgical History Diabetic: Yes -: Diabetes mellitus type 2 insulin-dependent -: Hypertension -: Diastolic CHF -: Atrial fibrillation on chronic anti coagulation therapy -: End-stage renal disease on hemodialysis -: Colonoscopy -: Detached retina -: scalp surgery Psychosocial/ Personal History: Patient lives with a friend. He has no family. - Family History Father -: Hypertension Mother -: Hypertension, Diabetes Sister -: Cancer - Social History Smoking Status: Never smoker Alcohol use: Yes CD- Drugs: No Caffeine use: Yes Place of Residence: Home Review of Systems General: As per HPI Eyes: Unremarkable ENT: Unremarkable Respiratory: Shortness of Breath, SOB with Excertion, As per HPI Cardiovascular: Paroxysmal Noc. Dyspnea, As per HPI Gastrointestinal: Unremarkable Genitourinary: Unremarkable Musculoskeletal: Unremarkable Integumentary: Unremarkable Neurological: Unremarkable Lymphatics: Unremarkable Physical Examination - Physical Exam General: Alert, In no apparent distress, Oriented x3, Cooperative HEENT: Atraumatic, Mucous membr. moist/pink Neck: Supple Respiratory: Diminished (to the right side), Expiratory wheezes (To the left side) Cardiovascular: Irregular heart rate/rhythm (AFib rate controlled) Gastrointestinal: Normal bowel sounds, Soft and benign, Non-distended, No masses, No rebound, No guarding Musculoskeletal: No erythema, No tenderness, No warmth Integumentary: No erythema, No warmth, No cyanosis, Tenderness/swelling (Mild edema to the lower extremities) Neurological: Normal speech, Normal strength at 5/5 x4 extr, Normal tone, Normal affect - Studies Laboratory Data (last 24 hrs) 03/29/20 11:30: WBC 10.7, Hgb 11.3 L, Hct 34.4 L, Plt Count 193 03/29/20 11:30: Sodium 135 L, Potassium 4.7, BUN 93 H, Creatinine 9.58 H*, Glucose 191 H, Magnesium 2.7 H, Total Bilirubin 1.3 H, AST 9 L, ALT 10 L, Alkaline Phosphatase 50 Assessment and Plan - Plan Impression: Shortness of breast secondary to acute on chronic right large pleural effusion Hypotension etiology unknown with history of hypertension End-stage renal disease on hemodialysis Diabetes mellitus type 2 insulin-dependent Atrial fibrillation on chronic anti coagulation therapy Chronic diastolic CHF Plan: Shortness of breast secondary to acute on chronic right large pleural effusion: Patient we admitted to ICU for close monitoring. Will maintain oxygen above 93%. Case discussed with pulmonology. Patient will have thoracentesis but will need to hold Eliquis at this time. May need to hold Eliquis for at least 12-48 hours in order for radiology assisted thoracentesis to be done. Will consult Nephrology to continue dialysis. Will start med a drain due to low blood pressure. Hold blood pressure medication at this time. Will also start IV fluids. Will discuss further with nephrology. Will monitor closely. Hypotension etiology unknown with history of hypertension: Hold blood pressure medication at this time. Will start midodrine to maintain blood pressure. End-stage renal disease on hemodialysis: Will discuss with nephrology. Patient will require dialysis every Sunday, Sunday and Sunday. Diabetes mellitus type 2 insulin-dependent: Will provide insulin sliding scale. Monitor Accu-Cheks. Atrial fibrillation on chronic anti coagulation therapy: Hold anti coagulation therapy. Continue with rate control medication. We need to obtain and restart home medication. Chronic diastolic CHF: This appears stable. Will monitor closely. Discharge Plan: Home Plan to discharge in: 72 Hours - Advance Directives Does patient have a Living Will: Yes Does patient have a Durable POA for Healthcare: Yes - Code Status/Comfort Care Code Status Assessed: Yes (Patient is full code.) Time Spent Managing Pts Care (In Minutes): 55
[2020-03-29] MEDS: INSULIN -REGULAR HUMAN 50 UNIT/0.5 ML ML SQ SCH ×2 (16:45→20:17)
[2020-03-29] MEDS ORDERED: NA CHLORIDE 0.9% 1,000 ML IV SCH (16:45)
[2020-03-29] MEDS ORDERED: ACETAMINOPHEN 500 MG TAB PO PRN (16:45)
[2020-03-29] MEDS ORDERED: FUROSEMIDE 40 MG TABLET PO SCH (17:00)
[2020-03-29 17:54] LABS: Protime INR 1.31
[2020-03-29 18:01] LABS: CKMB Creatine Kinase MB 4.3 ng/mL (0.3-3.6); Troponin I 0.02 ng/mL (0.0-0.045)
[2020-03-29 18:02] LABS: Arterial Blood Carboxyhemoglob 0.8 % (0-1.5); Blood Gas Oxyhemoglobin 94.5 % (94-97); Blood O2 Saturation 96.4 % (92-98.5)
[2020-03-29] MEDS: FUROSEMIDE 20 MG/ 2ML VIAL IV SCH (18:20)
--- NOTE | 2020-03-29 20:05 | EDPHYS ---
Physician Documentation [facility] Name: Bill Thorpe Age: 74 yrs Sex: Male : 1945 Arrival Date: 03/29/2020 Time: 11:08 Bed 4 Private MD: ED Physician Will Womack HPI: 03/29 11:35 This 74 yrs old Male presents to ER via Ambulatory with complaints of mara Shortness Of Breath. 11:35 The patient has shortness of breath at rest, with light activity. Onset: The mara symptoms/episode began/occurred just prior to arrival. Duration: The symptoms are continuous, and are steadily getting worse. The patient's shortness of breath is aggravated by nothing, is alleviated by nothing. Associated signs and symptoms: Pertinent positives: non-productive cough. Severity of symptoms: At their worst the symptoms were moderate in the emergency department the symptoms are unchanged. The patient has experienced similar episodes in the past, multiple times. Historical: - Allergies: 11:17 Morphine; jl7 - Home Meds: 11:17 carvedilol 25 mg Oral tab 1 tab 2 times per day for Hypertension [Active]; doxazosin 4 jl7 mg Oral tab 1 tab once daily for Hypertension [Active]; Eliquis 2.5 mg Oral tab 1 tab daily [Active]; furosemide 40 mg Oral tab 1 tab once daily for EDEMA [Active]; - PMHx: 11:17 Atrial Fib; Diabetes - IDDM; ESRD; Fracture to sternum; Hepatitis; Hypertension; jl7 Irregular heart rate; leaking heart valve; - PSHx: 11:17 cataract sx; jl7 - Immunization history:: Adult Immunizations unknown. - Social history:: Smoking status: Patient denies any tobacco usage or history of. ROS: 11:37 Constitutional: Negative for fever, chills, and weight loss, Eyes: Negative for injury, mara pain, redness, and discharge, ENT: Negative for injury, pain, and discharge, Neck: Negative for injury, pain, and swelling, Cardiovascular: Negative for chest pain, palpitations, and edema, Abdomen/GI: Negative for abdominal pain, nausea, vomiting, diarrhea, and constipation, Back: Negative for injury and pain, : Negative for injury, bleeding, discharge, and swelling, MS/Extremity: Negative for injury and deformity, Skin: Negative for injury, rash, and discoloration, Neuro: Negative for headache, weakness, numbness, tingling, and seizure. 11:37 Respiratory: Positive for cough, shortness of breath. Exam: 11:37 Constitutional: This is a well developed, well nourished patient who is awake, alert, mara and in no acute distress. Head/Face: Normocephalic, atraumatic. Eyes: Pupils equal round and reactive to light, extra-ocular motions intact. Lids and lashes normal. Conjunctiva and sclera are non-icteric and not injected. Cornea within normal limits. Periorbital areas with no swelling, redness, or edema. ENT: Nares patent. No nasal discharge, no septal abnormalities noted. Tympanic membranes are normal and external auditory canals are clear. Oropharynx with no redness, swelling, or masses, exudates, or evidence of obstruction, uvula midline. Mucous membranes moist. Neck: Trachea midline, no thyromegaly or masses palpated, and no cervical lymphadenopathy. Supple, full range of motion without nuchal rigidity, or vertebral point tenderness. No Meningismus. Chest/axilla: Normal chest wall appearance and motion. Nontender with no deformity. No lesions are appreciated. Cardiovascular: Regular rate and rhythm with a normal S1 and S2. No gallops, murmurs, or rubs. Normal PMI, no JVD. No pulse deficits. Abdomen/GI: Soft, non-tender, with normal bowel sounds. No distension or tympany. No guarding or rebound. No evidence of tenderness throughout. Back: No spinal tenderness. No costovertebral tenderness. Full range of motion. Male : Normal genitalia with no discharge or lesions. Skin: Warm, dry with normal turgor. Normal color with no rashes, no lesions, and no evidence of cellulitis. MS/ Extremity: Pulses equal, no cyanosis. Neurovascular intact. Full, normal range of motion. Neuro: Awake and alert, GCS 15, oriented to person, place, time, and situation. Cranial nerves II-XII grossly intact. Motor strength 5/5 in all extremities. Sensory grossly intact. Cerebellar exam normal. Normal gait. Psych: Awake, alert, with orientation to person, place and time. Behavior, mood, and affect are within normal limits. 11:37 Respiratory: moderate respiratory distress is noted, Breath sounds: decreased breath sounds, that are moderate, are heard in the right middle lobe, right lower lobe, right posterior middle lobe and right posterior lower lobe, Respiratory rate: 29 11:41 ECG was reviewed by the Attending Physician. mara Vital Signs: 11:08 BP 98 / 62; Pulse 59; Resp 29 S; Temp 97(O); Pulse Ox 89% on R/A; jl7 11:41 BP 90 / 63; Pulse 58; Resp 23 S; Pulse Ox 94% on 2 lpm NC; Pain 0/10; jl7 12:05 BP 89 / 57; Pulse 55; Resp 15; Pulse Ox 92% on 2 lpm NC; jl7 12:49 BP 72 / 54; Pulse 56; Resp 30; Pulse Ox 95% on 4 lpm NC; sv 13:30 BP 83 / 56; Pulse 50; Resp 24; Pulse Ox 96% on 4 lpm NC; sv 14:00 BP 87 / 47; Pulse 52; Resp 26; Pulse Ox 95% 4 lpm ; jl7 14:39 BP 85 / 57; Pulse 55; Resp 26 S; Pulse Ox 97% on 4 lpm NC; jl7 15:00 BP 76 / 51; Pulse 51; Resp 24 S; Pulse Ox 96% on 4 lpm NC; jl7 15:30 BP 75 / 54; Pulse 48; Resp 25; Pulse Ox 96% on 4 lpm NC; jl7 16:19 BP 84 / 61; Pulse 54; Resp 22; Pulse Ox 95% on 4 lpm NC; jl7 16:31 BP 94 / 55; Pulse 58; Resp 15; Pulse Ox 97% on Non-rebreather mask; jl7 12:05 aware of BP jl7 12:49 Pt was 91% on 2L NC, O2 increased. Informed Dr Womack of these updated vitals and the sv increase need for O2. 14:39 aware of VS jl7 Procedures: 15:46 Central Line: the site was prepped with Betadine, a triple lumen catheter was inserted, mara in the right femoral vein, in 1 attempts. placement was verified, by blood return, the site was dressed with using sterile technique, the patient tolerated the procedure, well. MDM: 11:13 Patient medically screened. mara 11:39 Differential diagnosis: Anemia Bronchitis CHF exacerbation, Chronic Obstructive mara Pulmonary Disease pulmonary edema. Antibiotic administration: Not indicated. The patient's Wells Deep Vein Thrombosis Score was calculated as follows: Total Score: 0-2 Pts- Low Risk. The patient's pulmonary embolism risk score was calculated as follows: Total Score: 0-2 points. This patient was found to be at low risk for a pulmonary embolism by using the Well's assessment criteria. Immunization status: Pneumococcal vaccine: Influenza vaccine: Data reviewed: vital signs, nurses notes, lab test result(s), EKG, radiologic studies, plain films. 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 Test interpretation: by ED physician or midlevel provider: ECG, plain radiologic studies. Counseling: I had a detailed discussion with the patient and/or guardian regarding: the historical points, exam findings, and any diagnostic results supporting the discharge/admit diagnosis, the presence of at least one elevated blood pressure reading (>120/80) during this emergency department visit, lab results, radiology results, the need for further work-up and treatment in the hospital. 12:49 ED course: DYSPNEA IMPROVED, LARGE RIGHT PLEURAL EFFUSION, ADMITTED DR CURIEL , HE WILL mara CONSULT DR SEGURA. 12:58 ED course: HYPOXIA, HYPOTENSIVE, to icu per dr anderson. [facility] 16:26 ED course: rigrt femoral line placed by me under sterile conditions, without difficulty.[facility] 03/29 11:13 Order name: Basic Metabolic Panel; Complete Time: 12:46 [facility] 03/29 11:13 Order name: CBC with Diff; Complete Time: 12:46 [facility] 03/29 11:13 Order name: LFT's; Complete Time: 12:46 [facility] 03/29 11:13 Order name: Magnesium; Complete Time: 12:46 [facility] 03/29 11:13 Order name: NT PRO-BNP; Complete Time: 12:46 [facility] 03/29 11:13 Order name: Troponin (emerg Dept Use Only); Complete Time: 12:46 [facility] 03/29 11:13 Order name: XRAY Chest (1 view); Complete Time: 12:46 [facility] 03/29 11:13 Order name: EKG; Complete Time: 11:15 mara 03/29 11:13 Order name: Cardiac monitoring; Complete Time: 11:34 mara 03/29 11:13 Order name: EKG - Nurse/Tech; Complete Time: 11:34 [facility] 03/29 11:13 Order name: IV Saline Lock; Complete Time: [facility] 03/29 11:13 Order name: Labs collected and sent; Complete Time: [facility] 03/29 11:13 Order name: O2 Per Protocol; Complete Time: [facility] 03/29 11:13 Order name: O2 Sat Monitoring; Complete Time: : [facility] EC:41 Rate is 58 beats/min. Rhythm is irregularly irregular. QRS [place] is Normal. OH interval mara is normal. QRS interval is normal. QT interval is prolonged at 506 msec. No Q waves. T waves are Normal. No ST changes noted. Clinical impression: Atrial Fibrillation and No evidence of ischemia. Interpreted by me. Reviewed by me. Administered Medications: 13:05 Drug: NS 0.9% 250 ml Route: IV; Rate: bolus; Site: right wrist; sv 13:38 Follow up: Response: No adverse reaction; IV Status: Completed infusion; IV Intake: sv 250ml 13:38 Drug: NS 0.9% 1000 ml Route: IV; Rate: 75 ml/hr; Site: right wrist; sv 16:45 Follow up: IV Status: Completed infusion jl7 15:35 Drug: NS 0.9% 500 ml Route: IV; Rate: bolus; Site: right forearm; jl7 16:00 Follow up: Response: No adverse reaction; IV Status: Completed infusion; IV Intake: jl7 500ml 16:08 Drug: Glucagon 1 mg Route: IVP; Site: right forearm; jl7 16:45 Follow up: Response: No adverse reaction jl7 16:10 Drug: Dopamine drip 5 mcg/kg/min - (DOPamine 400 mg, D5W 250 ml) Route: IV; Rate: jl7 calculated rate; Site: right femoral; 16:45 Follow up: IV Status: Infusion continued upon admission jl7 Disposition: 03/29/20 12:49 Hospitalization ordered by Rogelio Anderson for Inpatient Admission. Preliminary diagnosis are Dyspnea, Pleural effusion in conditions classified elsewhere - large right, End stage renal disease - on HD, M,W,F, Type 1 diabetes mellitus, Hypoxemia, Hypotension. - Bed requested for Intensive Care Unit. - Status is Inpatient Admission. jl7 - Condition is Fair. - Problem is new. - Symptoms have improved. Signatures: Dispatcher [employer] EDMS Susan Collado Stephanie RN RN Will Mejia MD MD cha Leal, Jahala, RN RN jl7 Corrections: (The following items were deleted from the chart) 12:52 12:49 Hospitalization Ordered by Rogelio Anderson DO for Inpatient Admission. Preliminary mara diagnosis is Dyspnea; Pleural effusion in conditions classified elsewhere - large right; End stage renal disease - on HD, M,W,F; Type 1 diabetes mellitus; Hypoxemia. Bed requested for Telemetry/MedSurg (Inpatient). Status is Inpatient Admission. Condition is Fair. Problem is new. Symptoms have improved. [facility] 12:57 12:52 03/29/2020 12:49 Hospitalization Ordered by Rogelio Anderson DO for Inpatient mara Admission. Preliminary diagnosis is Dyspnea; Pleural effusion in conditions classified elsewhere - large right; End stage renal disease - on HD, M,W,F; Type 1 diabetes mellitus; Hypoxemia. Bed requested for Intensive Care Unit. Status is Inpatient Admission. Condition is Fair. Problem is new. Symptoms have improved. [facility] 14:53 12:57 03/29/2020 12:49 Hospitalization Ordered by Rogelio Anderson DO for Inpatient bd Admission. Preliminary diagnosis is Dyspnea; Pleural effusion in conditions classified elsewhere - large right; End stage renal disease - on HD, M,W,F; Type 1 diabetes mellitus; Hypoxemia; Hypotension. Bed requested for Intensive Care Unit. Status is Inpatient Admission. Condition is Fair. Problem is new. Symptoms have improved. mara 17:11 14:53 03/29/2020 12:49 Hospitalization Ordered by Rogelio Anderson DO for Inpatient jl7 Admission. Preliminary diagnosis is Dyspnea; Pleural effusion in conditions classified elsewhere - large right; End stage renal disease - on HD, M,W,F; Type 1 diabetes mellitus; Hypoxemia; Hypotension. Bed requested for Intensive Care Unit. Status is Inpatient Admission. Condition is Fair. Problem is new. Symptoms have improved. bd
--- NOTE | 2020-03-29 20:05 | ER ---
Nurse's Notes [facility] Name: Bill Thorpe Age: 74 yrs Sex: Male : 1945 Arrival Date: 03/29/2020 Time: 11:08 Bed 4 Private MD: Diagnosis: Dyspnea;Pleural effusion in conditions classified elsewhere-large right;End stage renal disease-on HD, M,W,F;Type 1 diabetes mellitus;Hypoxemia;Hypotension Presentation: 03/29 11:08 Chief complaint: EMS states: Pt missed dialysis on Sunday, reportedly felt good all jl7 weekend and then this morning just prior to going for dialysis felt short of breath. Bilateral wheezes, gave A\T\A and pt reported feeling better. Coronavirus screen: Patient denies a cough. Patient reports shortness of breath or difficulty breathing. Patient denies measured and/or subjective temperature greater than 100.4F prior to today's visit. Patient denies travel on a cruise ship or to a country the [facility] currently lists as an affected area. Patient denies contact with known and/or suspected case of COVID-19. Ebola Screen: No symptoms or risks identified at this time. Initial Sepsis Screen: Does the patient meet any 2 criteria? RR > 20 per min. No. Patient's initial sepsis screen is negative. Does the patient have a suspected source of infection? No. Patient's initial sepsis screen is negative. Risk Assessment: Do you want to hurt yourself or someone else? Patient reports no desire to harm self or others. Onset of symptoms was March 29, 2020. Care prior to arrival: Medication(s) given: Albuterol Neb x 1, Atrovent Neb x 1. Transition of care: patient was not received from another setting of care. 11:08 Method Of Arrival: Ambulatory jl7 11:08 Acuity: KRUPA 2 jl7 Triage Assessment: 11:17 General: Appears distressed, uncomfortable, Behavior is calm, cooperative, appropriate jl7 for age. Pain: Denies pain. Neuro: Level of Consciousness is awake, alert, obeys commands, Oriented to person, place, time, situation. Cardiovascular: Denies chest pain, Patient's skin is warm and dry. Respiratory: Reports shortness of breath at rest Airway is patent Respiratory effort is even, labored, Respiratory pattern is symmetrical, tachypnea Onset: The symptoms/episode began/occurred suddenly, the patient has moderate shortness of breath. Derm: Skin is pink, warm \T\ dry. Historical: - Allergies: 11:17 Morphine; jl7 - Home Meds: 11:17 carvedilol 25 mg Oral tab 1 tab 2 times per day for Hypertension [Active]; doxazosin 4 jl7 mg Oral tab 1 tab once daily for Hypertension [Active]; Eliquis 2.5 mg Oral tab 1 tab daily [Active]; furosemide 40 mg Oral tab 1 tab once daily for EDEMA [Active]; - PMHx: 11:17 Atrial Fib; Diabetes - IDDM; ESRD; Fracture to sternum; Hepatitis; Hypertension; jl7 Irregular heart rate; leaking heart valve; - PSHx: 11: cataract sx; jl7 - Immunization history:: Adult Immunizations unknown. - Social history:: Smoking status: Patient denies any tobacco usage or history of. Screenin:34 Abuse screen: Denies threats or abuse. Denies injuries from another. Nutritional jl7 screening: No deficits noted. Tuberculosis screening: No symptoms or risk factors identified. Fall Risk IV access (20 points). Total Tavarez Fall Scale indicates No Risk (0-24 pts). Assessment: 11:20 General: See triage assessment. jl7 11:29 Reassessment: Dr. Womack at bedside. jl7 11:34 Reassessment: x-ray at bedside. jl7 12:00 Reassessment: Patient appears in no apparent distress at this time. Patient and/or jl7 family updated on plan of care and expected duration. Pain level reassessed. Patient is alert, oriented x 3, equal unlabored respirations, skin warm/dry/pink. Patient states symptoms have improved. 14:45 Reassessment: Pt laying in bed on right side, adjusted pt to laying on his back and jl7 reassessed BP, MD aware; pt denies discomfort at this time. 14:46 Reassessment: ERD at bedside. jl7 16:00 Reassessment: Dr. Womack at bedside for central line placement. jl7 16:33 Reassessment: Pt's O2 sats decreased to 87% on NC, switched pt to Non-rebreahter, O2 jl7 sats at 97%. Vital Signs: 11:08 BP 98 / 62; Pulse 59; Resp 29 S; Temp 97(O); Pulse Ox 89% on R/A; jl7 11:41 BP 90 / 63; Pulse 58; Resp 23 S; Pulse Ox 94% on 2 lpm NC; Pain 0/10; jl7 12:05 BP 89 / 57; Pulse 55; Resp 15; Pulse Ox 92% on 2 lpm NC; jl7 12:49 BP 72 / 54; Pulse 56; Resp 30; Pulse Ox 95% on 4 lpm NC; sv 13:30 BP 83 / 56; Pulse 50; Resp 24; Pulse Ox 96% on 4 lpm NC; sv 14:00 BP 87 / 47; Pulse 52; Resp 26; Pulse Ox 95% 4 lpm ; jl7 14:39 BP 85 / 57; Pulse 55; Resp 26 S; Pulse Ox 97% on 4 lpm NC; jl7 15:00 BP 76 / 51; Pulse 51; Resp 24 S; Pulse Ox 96% on 4 lpm NC; jl7 15:30 BP 75 / 54; Pulse 48; Resp 25; Pulse Ox 96% on 4 lpm NC; jl7 16:19 BP 84 / 61; Pulse 54; Resp 22; Pulse Ox 95% on 4 lpm NC; jl7 16:31 BP 94 / 55; Pulse 58; Resp 15; Pulse Ox 97% on Non-rebreather mask; jl7 12:05 MD aware of BP jl7 12:49 Pt was 91% on 2L NC, O2 increased. Informed Dr Womack of these updated vitals and the sv increase need for O2. 14:39 MD aware of VS jl7 ED Course: 11:08 Patient arrived in ED. jl7 11:13 Will Womack MD is Attending Physician. mara 11:16 Triage completed. jl7 11:17 Arm band placed on right wrist. jl7 11:34 Patient has correct armband on for positive identification. Placed in gown. Bed in low jl7 position. Call light in reach. Side rails up X2. in flight refueling system repairer on. Pulse ox on. NIBP on. 11:34 Initial lab(s) drawn, by me, sent to lab. Inserted saline lock: 20 gauge in right jl7 forearm, using aseptic technique. Blood collected. 11:41 Warm blanket given. Pillow given. jl7 11:43 XRAY Chest (1 view) In Process Unspecified. EDMS 11:44 Hailey Hernandez RN is Primary Nurse. jl7 11:46 EKG done, by hazmat technician. reviewed by Will Womack MD. at1 12:47 Rogelio Barron DO is Hospitalizing Provider. mara 14:22 Report given to Hailey WYATT. sv 16:00 Assisted provider with central line placement. Set up central line tray. Triple lumen jl7 line placed in right femoral. Line placed by Will Womack MD Placement verified by blood return, Dressed with Tegaderm, Patient tolerated well. Before procedure, did Practitioner(s) obtain informed consent? No. Patient \T\ family education about procedure, CLABSI prevention and S/S of infection? Yes. Time-out/Briefing performed prior to start of procedure? Yes. Was handwashing/sanitizing done immediately prior to procedure? Yes. Was patient positioned to in a way to prevent air embolism? Yes. Was procedure site sterilized? Yes, with chlorhexidine. Was the site allowed to dry? Yes. Was local anesthetic and/or sedation utilized? Yes. During the procedure, did the Practitioner(s) maintain a sterile field? Yes. Were unused ports clamped during insertion? Yes. Was a 2nd qualified MD obtained after 3 unsuccessful insertion attempts? No. Was blood aspirated from each lumen? Yes. After the procedure, did the Practitioner(s) clean the site and apply a sterile dressing? Yes. 16:00 Patient admitted, IV remains in place. intact, No redness/swelling at site. jl7 Administered Medications: 13:05 Drug: NS 0.9% 250 ml Route: IV; Rate: bolus; Site: right wrist; sv 13:38 Follow up: Response: No adverse reaction; IV Status: Completed infusion; IV Intake: sv 250ml 13:38 Drug: NS 0.9% 1000 ml Route: IV; Rate: 75 ml/hr; Site: right wrist; sv 16:45 Follow up: IV Status: Completed infusion jl7 15:35 Drug: NS 0.9% 500 ml Route: IV; Rate: bolus; Site: right forearm; jl7 16:00 Follow up: Response: No adverse reaction; IV Status: Completed infusion; IV Intake: jl7 500ml 16:08 Drug: Glucagon 1 mg Route: IVP; Site: right forearm; jl7 16:45 Follow up: Response: No adverse reaction jl7 16:10 Drug: Dopamine drip 5 mcg/kg/min - (DOPamine 400 mg, D5W 250 ml) Route: IV; Rate: jl7 calculated rate; Site: right femoral; 16:45 Follow up: IV Status: Infusion continued upon admission jl7 Intake: 13:38 IV: 250ml; Total: 250ml. sv 16:00 IV: 500ml; Total: 750ml. jl7 Outcome: 12:49 Decision to Hospitalize by Provider. mara 17:10 Admitted to ICU accompanied by nurse, via stretcher, room 3, with oxygen, on monitor, jl7 with chart, Report called to YOSELIN Shaffer 17:10 Condition: stable 17:10 Discharge instructions given to patient, Instructed on the need for admit, Demonstrated understanding of instructions. 17:11 Patient left the ED. jl7 Signatures: Dispatcher [employer] Minal Edwards RN RN Will Mejia MD MD cha Gonzales, Amanda, cupola operator insulation EKG Tat1 Hailey Hernandez RN RN jl7 Corrections: (The following items were deleted from the chart) 14:00 12:49 BP 72 / 54; Pulse 56bpm; Resp 30bpm; Pulse Ox 95% 4 lpm Nasal Cannula; Pt was 91% sv on 2L NC, O2 increased.; sv
[2020-03-29] MEDS: HEPARIN 5000 UNIT/ML 1 ML VIAL SQ SCH (20:16)
[2020-03-29] MEDS: MIDODRINE HCL 5 MG TABLET PO SCH (20:16)
[2020-03-30] MEDS ORDERED: DOPAMINE/D5W 400 MG/250 ML BAG IV ONE (02:38)
[2020-03-30 05:19] LABS: Absolute Lymphocytes (CBC) 0.9 K/uL (0.7-4.9); Basophils % 0.8 % (0-1.3); Hematocrit 33.9 % (39.6-49.0); Lymphocytes % 10.2 % (15.3-44.8); MPV 8.6 fL (7.6-11.3); RBC Red Blood Cell Count 3.52 M/uL (4.33-5.43)
[2020-03-30 05:44] LABS: CKMB Creatine Kinase MB 8.5 ng/mL (0.3-3.6); Magnesium 2.8 mg/dL (1.8-2.4); Potassium 5.3 mmol/L (3.5-5.1)
[2020-03-30 05:47] LABS: Troponin I 3.04 ng/mL (0.0-0.045)
[2020-03-30] MEDS: INSULIN -REGULAR HUMAN 50 UNIT/0.5 ML ML SQ SCH ×4 (07:30→20:47)
[2020-03-30] MEDS ORDERED: LIDOCAINE 1% 20 ML MDV ONE (08:02)
--- NOTE | 2020-03-30 08:18 | P.OP ---
Preoperative diagnosis: RIGHT pleural Effusion Postoperative diagnosis: RIGHT pleural Effusion Primary procedure: Placement of RIGHT THAL Thoracostomy Tube -16Fr Anesthesia: Local Estimated blood loss: <1cc Specimen: clear fluid sent for analysis Findings: staw colored fluid Complications: None Drain(s): Other (THAL chest tube 16Fr) Transferred to: ICU Condition: Serious
--- NOTE | 2020-03-30 08:36 | P.CNS ---
Date of Consult: 03/30/20 Primary Care Provider: Felicitas Herndon NP; Nephrology-Dr. Call Chief Complaint: Shortness of breath pleural effusion hypotension History of Present Illness: Patient is 74 years of age with end-stage renal disease on hemodialysis admitted with acute dyspnea became worse on Sunday denies any fever chills chest pain he has had a pleural effusion before which has been drained about 3-4 years ago missed dialysis and is post chest tube insertion he was also hypotensive chest x-ray shows a massive effusion on the right side/patient is currently on BiPAP was also on low-dose dopamine Also anti coagulated Allergies morphine Adverse Reaction (Verified 05/15/18 22:56) confusion - Past Medical/Surgical History Diabetic: Yes -: Diabetes mellitus type 2 insulin-dependent -: Hypertension -: Diastolic CHF -: Atrial fibrillation on chronic anti coagulation therapy -: End-stage renal disease on hemodialysis -: Colonoscopy -: Detached retina -: scalp surgery Psychosocial/ Personal History: Patient lives with a friend. He has no family. - Family History Father Medical History: Hypertension Mother Medical History: Hypertension, Diabetes Sister Medical History: Cancer - Social History Smoking Status: Never smoker Alcohol use: Yes CD- Drugs: No Caffeine use: Yes Place of Residence: Home Review of Systems 10-point ROS is otherwise unremarkable General: Weakness Respiratory: Shortness of Breath Physical Examination Temp Pulse Resp BP Pulse Ox 98 F 62 21 H 93/54 L 97 03/30/20 04:00 03/30/20 06:00 03/30/20 06:00 03/30/20 06:00 03/30/20 06:00 General: Alert, In no apparent distress, Oriented x3 HEENT: Atraumatic Neck: Supple Respiratory: Diminished (Diminished air entry right side) Cardiovascular: No edema, Regular rate/rhythm Laboratory Data (last 24 hrs) 03/29/20 11:30: WBC 10.7, Hgb 11.3 L, Hct 34.4 L, Plt Count 193 03/29/20 11:30: Sodium 135 L, Potassium 4.7, BUN 93 H, Creatinine 9.58 H*, Glucose 191 H, Magnesium 2.7 H, Total Bilirubin 1.3 H, AST 9 L, ALT 10 L, Alkaline Phosphatase 50 - Problems (1) Pleural effusion Current Visit: Yes Status: Acute Plan: Patient is 74 years of age admitted with shortness of breath hypotensive massive pleural effusion status post chest tube patient was acidotic hypercapnic on BiPAP still little hypotensive plan to wean him off the BiPAP is at a chest tube placed will plan to do a pleurodesis no clinical evidence of sepsis pleural fluid has been sent for appropriate studies chemistries and cytology be transferred to the floor once is weaned off vasopressors daily room air pulse ox
--- NOTE | 2020-03-30 08:42 | RAD REPORT ---
EXAM DESCRIPTION: RAD - Chest Single View - 03/30/2020 5:49 am CLINICAL HISTORY: follow up Right pleural effusion Chest pain. COMPARISON: Chest Single View dated 03/29/2020; Chest Single View dated 12/28/2018; Chest Single View da em 05/15/2018; Chest Single View dated 10/09/2017 FINDINGS: Portable technique limits examination quality. A large right-sided pleural effusion is seen, progressive since comparative study. A small amount of aerated lung is seen in the right upper lobe. Mild interstitial prominence seen in the left lung. The heart is moderately enlarged in size. No displaced fractures. IMPRESSION: Large right pleural effusion, progressive since comparative study.
--- NOTE | 2020-03-30 08:54 | RAD REPORT ---
EXAM DESCRIPTION: RAD - Chest Single View - 03/30/2020 8:16 am CLINICAL HISTORY: R/O Pneumo. Chest pain. COMPARISON: Chest Single View dated 03/30/2020; Chest Single View dated 03/29/2020; Chest Single View da em 12/28/2018; Chest Single View dated 05/15/2018 FINDINGS: Portable technique limits examination quality. A large amount of right pleural fluid is seen. No pneumothorax is evident. Heart is moderately enlarg ed in size. No displaced fractures. IMPRESSION: No measurable pneumothorax seen.
[2020-03-30] MEDS: FUROSEMIDE 20 MG/ 2ML VIAL IV SCH ×2 (09:00→17:00)
[2020-03-30] MEDS: MIDODRINE HCL 5 MG TABLET PO SCH ×4 (09:20→21:00)
[2020-03-30] MEDS: HYDROCODONE/APAP 5/325 MG TAB PO PRN ×2 (09:20→17:13)
[2020-03-30 09:35] LABS: Blood Gas Oxyhemoglobin 87.1 % (94-97)
[2020-03-30] MEDS: HEPARIN 5000 UNIT/ML 1 ML VIAL SQ SCH ×2 (09:47→20:46)
[2020-03-30 09:59] LABS: Body Fluid WBC 334 /mm^3
[2020-03-30 12:43] LABS: Appearance SLT. TURBID (CLEAR); Body Fluid Source PLEURAL; Color of fluid Yellow (COLORLESS)
--- NOTE | 2020-03-30 13:24 | OP ---
Date of Procedure: 03/30/2020 Surgeon: Ari Hansen MD, Preoperative Diagnosis: Right pleural effusion. Postoperative Diagnosis: Right pleural effusion. Procedure Performed: Placement of a right foul thoracostomy tube 16-[place]. Anesthesia: Local 1% lidocaine used without epinephrine. Estimated Blood Loss: Less 1 cc. Specimens: Clear fluid sent for analysis. The findings were straw-colored fluid. Complications: None. Drains: A foul chest tube 16-[place] in the right thoracic space, 6th intercostal space proximally. Patient remained in ICU in serious condition. Procedure In Detail: After informed consent was obtained, the patient was prepped and draped in the usual sterile fashion. After adequate anesthesia was achieved using 1% lidocaine over the rib of the approximately 6th intercostal space, the tract was anesthetized into the chest wall and pleural stra w-colored fluid was encountered. At this point, a small adrien incision was made and using a finder ne edle, the thoracic space was cannulated. Immediately straw-colored fluid was encountered. The wire was advanced through this. The needle was removed and the wire was left in place. Sequential dilata tion was performed using Seldinger technique with 3 sequential dilators and ultimately the 16-[place] Thal chest tube was then placed into the thoracic space pointing cranially and posteriorly. Good magda w of straw-colored fluid was encountered immediately and titling was encountered of the tube when valentin ked up to the Pneumovax system. There was no evidence of blood on this tap at this point. I then se cured the chest tube to the chest wall after cleansing once again with a ChloraPrep stick. Using an included 2-0 silk suture and a sterile dressing placed over top. The patient tolerated procedure wel l with no evidence of complication, remained in the ICU in serious condition. A stat chest x-ray mary l be performed. All counts were correct at the end of the case. TK/MODL Voice ID: [id number] Report ID: [id number]
[2020-03-30] MEDS: TRAMADOL HCL 50 MG TAB PO PRN (13:50)
[2020-03-30] MEDS: DOPAMINE/D5W 400 MG/250 ML BAG IV PRN (14:48)
--- NOTE | 2020-03-30 14:51 | P.PN ---
Subjective Date of Service: 03/30/20 Primary Care Provider: Felicitas Herndon NP; Nephrology-Dr. Call Chief Complaint: Shortness of breath pleural effusion hypotension Subjective: Other (Patient stable this time. Patient to have chest tube placed.) Physical Examination - Vital Signs Temperature: 97.0 F Blood Pressure: 101/61 Pulse: 74 Respirations: 24 Pulse Ox (%): 91 - Physical Exam General: Alert, Cooperative HEENT: Atraumatic Neck: Supple Respiratory: Crackles/rales (Crackles on the left side), Other (Decreased to the right base) Cardiovascular: Normal pulses, Regular rate/rhythm Gastrointestinal: Normal bowel sounds Neurological: Normal speech, Normal strength at 5/5 x4 extr, Normal tone, Normal affect - Studies Medications List Reviewed: Yes Assessment & Plan Discharge Plan: Other (group home facility) Plan to discharge in: Greater than 2 days Physician Review Additional Text: Impression: Shortness of breath secondary to acute on chronic right large pleural effusion with acute respiratory failure and noted hypercapnia Hypotension etiology unknown with history of hypertension suspect related to above End-stage renal disease on hemodialysis Diabetes mellitus type 2 insulin-dependent Atrial fibrillation on chronic anti coagulation therapy Chronic diastolic CHF Plan: Shortness of breath secondary to acute on chronic right large pleural effusion with acute respiratory failure and noted hypercapnia: Case discussed with pulmonology. Continue to hold Eliquis. Pulmonology recommends chest tube. Case discussed with surgery. Surgery plans to putting chest tube. Will need to obtain fluid and sent for analysis. Will reassess after chest tube. Maintain oxygen above 93%. Patient was requiring nasal cannula this morning. BiPAP last night. Continue with BiPAP if required. Continue with pulmonology recommendations. Case discussed with nephrology yesterday. Patient will likely require dialysis once blood pressure stable. Will wean off dopamine. Hypotension etiology unknown with history of hypertension suspect related to above: Hold blood pressure medication at this time. Continue with midodrine. Wean off dopamine. Case discussed with cardiology. Will increase midodrine. End-stage renal disease on hemodialysis: Patient will likely require dialysis once blood pressure more stable. Diabetes mellitus type 2 insulin-dependent: Will provide insulin sliding scale. Monitor Accu-Cheks. Atrial fibrillation on chronic anti coagulation therapy: Continue to hold chronic anti coagulation therapy in preparation for chest tube. Chronic diastolic CHF: This appears stable. Will monitor closely. Time Spent Managing Pts Care (In Minutes): 55
[2020-03-30] MEDS: ONDANSETRON 4 MG/2 ML VIAL IV PRN (15:48)
[2020-03-30] MEDS ORDERED: NA CHLORIDE 0.9% 1,000 ML IV PRN (16:57)
[2020-03-30] MEDS ORDERED: MANNITOL 25% 12.5 GM/50 ML VIAL IV PRN (16:57)
--- NOTE | 2020-03-30 17:20 | CON ---
Date of Consultation: 03/30/2020 Brief History Of Present Illness: Patient is a 74-year-old male known to me from previous thoracosto my tube placement back in 2017, who presents to the hospital once again with shortness of breath and acute dyspnea beginning on Sunday. He denies any cough, chest pain, fever, chills, and his last ches t tube was approximately 3 years ago in 2017. He is an end-stage renal patient with chronic hemodial ysis with multiple other concomitant medical problems. He is admitted to the hospital, placed on pre ssors and was hemodynamically unstable and due to respiratory insufficiency, he was placed on BiPAP. He continued to have shortness of breath and worsening symptoms. He is maintained on Eliquis as shelley garcía. I was consulted to see the patient for a recurrent right pleural effusion. As such, I am seeing the patient in the ICU, currently on BiPAP for the above-stated reason. Past Medical History: Significant for diabetes, hypertension; diastolic congestive heart failure; at rial fibrillation, on chronic anticoagulation with Eliquis; end-stage renal disease, on hemodialysis; enlarged aortic cardiac valve regurgitation. Past Surgical History: Includes colonoscopy, detached retina. He has had scalp surgery. Home Medications: Include Eliquis, Claritin, Coreg, Cardura. Allergies: TO MORPHINE. Physical Examination: Vital Signs: At the time of my examination, he is currently on pressor support. His blood pressure was 90/58, respiratory rate on BiPAP was in the mid 20s. He was saturating up over 80% during my exa mination. His BMI is 29.6. He is approximately 5 feet and 11 inches, 212 pounds. General: He is otherwise awake, alert, and oriented. Psychiatric: He is appropriate conversive. HEENT: He is normocephalic. His sclerae are anicteric. His mucous membranes are moist. His oropha rynx is clear, otherwise he has BiPAP in place. We will remove it momentarily. He has increased dysp carlie and must be placed back on almost immediately. Neck: Supple without JVD. Chest: Normal expansion and excursion. Cardiovascular: Normal rate. Irregular rhythm. His heart rate was 73 during the exam on the monito r. Chest: Had absent breath sounds on the right and decreased on the left. Laboratory Data: Reveals a white blood cell count of 9.2, hemoglobin was 11.0, hematocrit of 33.9, p latelet count was 191. His PT was 15.4, INR 1.3, PTT 37.8. His last ABG showed a pH of 7.2, his pCO 2 was 47, pO2 was 64, bicarb was 19.3, base excess -7. His oxyhemoglobin was 87 on 36% FiO2. His so dium was 137, potassium 5.3, chloride 99, carbon dioxide 23, BUN was 95, creatinine 10, glucose was 2 11. His calcium is 7.8, magnesium is 2.8. His troponin was 3.04. He had a chest x-ray performed, w [facility] showed an almost complete opacification of the right hemithorax. I personally reviewed this and found he has a large recurrent right pleural effusion as such. Assessment And Plan: This is a 74-year-old male with a large recurrent right pleural effusion. 1.Continue medical management. 2.I have explained the risks, benefits, and alternatives of placement of a right thoracostomy tube F ell-type 16-Urdu in the intercostal space for the purpose of fluid analysis as well as decompressio n of this fluid, including but not limited to bleeding, infection, damage to surrounding tissue, need for further operative procedures. The patient agrees to proceed as indicated. HARI/TAMARA Voice ID: [id number] Report ID: [id number]
[2020-03-30] MEDS ORDERED: PROMETHAZINE INJ 25 MG/ML AMP IV PRN (19:02)
[2020-03-30] MEDS ORDERED: PROMETHAZINE INJ 25 MG/ML AMP ONE (19:21)
--- NOTE | 2020-03-30 20:59 | P.CNS ---
Date of Consult: 03/30/20 Reason for Consult: ESRD Requesting Physician: Rogelio Barron Primary Care Provider: Felicitas Herndon NP; Nephrology-Dr. Call Chief Complaint: Shortness of breath pleural effusion hypotension History of Present Illness: 74 yo WM CKD, HTN presented to the ER with several days of moderate, progressive dyspnea with associated congestion and edema. Dyspnea worse with activity. Skipped his HD on Sunday. +Non-productive cough. Reports a recent change in his medications by cardiology. 74-year-old male with history of end-stage renal disease on hemodialysis, atrial fibrillation on chronic anti coagulation therapy, diabetes, and hypertension. Patient reported increasing shortness of breath. This has gotten worse over this last several days. He denies any fever, chills, cough or congestion. Patient came to the ER for further evaluation. 11:35 This 74 yrs old Male presents to ER via Ambulatory with complaints of mara Shortness Of Breath. 11:35 The patient has shortness of breath at rest, with light activity. Onset: The mara symptoms/episode began/occurred just prior to arrival. Duration: The symptoms are continuous, and are steadily getting worse. The patient's shortness of breath is aggravated by nothing, is alleviated by nothing. Associated signs and symptoms: Pertinent positives: non-productive cough. Severity of symptoms: At their worst the symptoms were moderate in the emergency department the symptoms are unchanged. The patient has experienced similar episodes in the past, multiple times. Allergies morphine Adverse Reaction (Verified 05/15/18 22:56) confusion Home medications list reviewed: Yes Home Medications: Albuterol Inhaler [Ventolin Inhaler*] 1 puff IH Q4H PRN 03/30/20 Apixaban [Eliquis *] 1 tab PO BID 03/30/20 Carvedilol [Coreg] 3.125 mg PO BID 03/30/20 Doxazosin [Cardura] 4 mg PO BID 03/30/20 Furosemide [Lasix] 2 tab PO BIDL 03/30/20 Insulin Detemir [Levemir] 20 units SQ BEDTIME 03/30/20 Losartan Potassium [Cozaar] 100 mg PO DAILY 03/30/20 - Past Medical/Surgical History Diabetic: Yes -: Diabetes mellitus type 2 insulin-dependent -: Hypertension -: Diastolic CHF -: Atrial fibrillation on chronic anti coagulation therapy -: End-stage renal disease on hemodialysis -: Colonoscopy -: Detached retina -: scalp surgery Psychosocial/ Personal History: Patient lives with a friend. He has no family. - Family History Father Medical History: Hypertension Mother Medical History: Hypertension, Diabetes Sister Medical History: Cancer - Social History Smoking Status: Never smoker Alcohol use: Yes CD- Drugs: No Caffeine use: Yes Place of Residence: Home Review of Systems 10-point ROS is otherwise unremarkable General: Weakness, Malaise Respiratory: Shortness of Breath Cardiovascular: Edema Neurological: Weakness Physical Examination Temp Pulse Resp BP Pulse Ox 97.0 F 67 20 82/51 L 93 03/30/20 14:51 03/30/20 17:45 03/30/20 18:13 03/30/20 17:45 03/30/20 18:13 General: Oriented x3, Cooperative HEENT: Atraumatic Neck: Supple, JVD distended Respiratory: Diminished Cardiovascular: Regular rate/rhythm, Edema Gastrointestinal: Soft and benign, Non-distended Musculoskeletal: No clubbing, No contractures Integumentary: No rashes, No cyanosis Neurological: Normal speech Blood work reviewed in the chart. Imagings Data: EXAM DESCRIPTION: RAD - Chest Single View - 03/30/2020 8:16 am CLINICAL HISTORY: R/O Pneumo. Chest pain. COMPARISON: Chest Single View dated 03/30/2020; Chest Single View dated 03/29/2020; Chest Single View dated 12/28/2018; Chest Single View dated 05/15/2018 FINDINGS: Portable technique limits examination quality. A large amount of right pleural fluid is seen. No pneumothorax is evident. Heart is moderately enlarged in size. No displaced fractures. IMPRESSION: No measurable pneumothorax seen. Conclusions/Impression: A/ ESRD on HD. Hyperkalemia HTN with CKD/ CHF complicated by hypotension of unclear etiology. Diastolic CHF, A/C. Pleural effusion. DM II with CKD. Anemia in CKD. JERALD/ Secondary HyperPTH. P/ Continue current POC and Medications. IVF bolus as needed. DC continuous IVF. Continue Dopamine and Midodrine; titrate as needed. Arrange for acute HD. Chest tube placed for large pleural effusion. Restart home medications as indicated. Echocardiogram pending. No NSAIDs. AM labs. Daily weight. Thank you kindly for the consultation. Case reviewed with Dr. Barron. Critical Care: Yes (>30min)
[2020-03-30] MEDS: ALBUMIN HUMAN 25% 50 ML IV SCH ×4 (22:10→23:32)
--- NOTE | 2020-03-30 23:21 | CON ---
Date of Consultation: 03/30/2020 The patient was admitted on 03/29/[address] Barron' service. I saw the patient on 03/30/2020. Reason For Consultation: Shortness of breath and large pleural effusion. History Of Present Illness: Mr. Thorpe is a 74-year-old male. He has a history of end-stage renal dis ease, atrial fibrillation, diabetes, hypertension, hepatitis, and valvular heart leak. Unknown etiol ogy. The patient came in with shortness of breath, was found to have a large pleural effusion on the right. He had an echocardiogram in 2017, showing a normal ejection fraction with diastolic congesti ve heart failure, decreased left ventricular compliance. He is on Eliquis for his atrial fibrillatio n. He denied chest pain. Denied nausea, vomiting, diaphoresis. Denies palpitations or syncope. Briseno s had PND, orthopnea, and has pedal edema as well. Past Medical History: As stated above. Allergies: HE IS ALLERGIC TO MORPHINE. Review of Systems: Negative. Social History: Negative. Family History: Noncontributory. Medications: At home include Eliquis, doxazosin, Lasix, insulin, and Coreg. Physical Examination: General: His blood pressure was 90/58. He was in sinus rhythm. Heart rate of 63. HEENT: Negative. Neck: Supple without any bruit, lymphadenopathy, JVD, or thyromegaly. Chest: Revealed decreased breath sounds on the right, rales at the left base. Cardiac: Revealed a regular rhythm and rate. No murmurs, gallops, or rubs. Abdomen: Obese, but be nign. Extremities: Revealed 2+ edema. Skin: Dry and intact. Neurologic neurologically was nonfocal. His. Diagnostic Data: He had a troponin of 3.04. His BNP was 108,724. His creatinine was 10, on BiPAP h is pO2 was 122, pCO2 of 69, pH of 7.12. Impression And Plan: 1.Shortness of breath secondary to large right pleural effusion as well as acute on chronic diastoli c congestive heart failure. Echocardiogram is pending. Pulmonary surgical consultation and renal co nsultation are pending. 2.Hypotension. 3.End-stage renal disease, on hemodialysis. 4.Paroxysmal atrial fibrillation, on Eliquis and carvedilol. 5.Diabetes. 6.Hypertension, complicated by hypotension. 7.Hepatitis. 8.Valvular heart leaks. 9.Respiratory acidosis. 10.Elevated troponin and BNP secondary to renal failure and congestive heart failure. The patient n eeds thoracentesis. He is on insulin, dopamine, heparin, Lasix, and midodrine. We can certainly inc rease the dopamine dose. We need to hold his Coreg, hold his doxazosin, hold his Eliquis for now. C ontinue insulin. We should be careful with Lasix, with his blood pressure. We will see what the ech ocardiogram shows. Mr. Thorpe may require a heart catheterization later, but we will plan to do that a s an outpatient. We are not dealing with acute coronary artery syndrome. NB/MODL Voice ID: [id number] Report ID: [id number]
[2020-03-31] MEDS: DOPAMINE/D5W 400 MG/250 ML BAG IV PRN ×4 (00:29→20:56)
[2020-03-31 05:05] LABS: Absolute Lymphocytes (CBC) 0.5 K/uL (0.7-4.9); Basophils % 0.5 % (0-1.3); Hematocrit 34.7 % (39.6-49.0); Lymphocytes % 4.8 % (15.3-44.8); MPV 7.9 fL (7.6-11.3); RBC Red Blood Cell Count 3.53 M/uL (4.33-5.43)
[2020-03-31 05:35] LABS: Magnesium 2.5 mg/dL (1.8-2.4); Phosphorus 6.9 mg/dL (2.5-4.9); Potassium 4.2 mmol/L (3.5-5.1); Uric Acid 4.4 mg/dL (3.5-7.2)
[2020-03-31] MEDS ORDERED: ALBUMIN HUMAN 25% 100 ML IV ONE (06:05)
[2020-03-31] MEDS: INSULIN -REGULAR HUMAN 50 UNIT/0.5 ML ML SQ SCH ×4 (07:30→20:55)
[2020-03-31] MEDS: CA ACETATE 667 MG CAP PO SCH ×3 (08:00→18:07)
[2020-03-31] MEDS: HEPARIN 5000 UNIT/ML 1 ML VIAL SQ SCH ×2 (08:22→20:55)
[2020-03-31] MEDS: FUROSEMIDE 20 MG/ 2ML VIAL IV SCH ×2 (08:24→17:00)
[2020-03-31] MEDS: MIDODRINE HCL 5 MG TABLET PO SCH ×3 (08:25→20:54)
--- NOTE | 2020-03-31 08:41 | P.PN ---
Subjective Date of Service: 03/31/20 Primary Care Provider: Felicitas Herndon NP; Nephrology-Dr. Call Chief Complaint: Unresponsive on BiPAP Condition stable no change patient is unresponsive currently on BiPAP little hypotensive on vasopressors Review of Systems is unable to be obtained Physical Examination - Vital Signs Temperature: 99.1 F Blood Pressure: 99/59 Pulse: 95 Respirations: 18 Pulse Ox (%): 96 - Physical Exam General: Unresponsive Respiratory: Diminished (Diminished on right side), Crackles/rales Cardiovascular: No edema, Regular rate/rhythm, Systolic murmur Gastrointestinal: Normal bowel sounds, Soft and benign - Studies Medications List Reviewed: Yes Assessment & Plan - Problems (Diagnosis) (1) Pleural effusion Current Visit: Yes Status: Acute Plan: Patient is status post chest chest tube no evidence of infection on the pleural fluid slight predominance of RBCs patient is still hypotensive on dialysis cultures are pending so far negative will Dc the Phenergan trial off BiPAP no evidence of sepsis missed dialysis
--- NOTE | 2020-03-31 09:20 | RAD REPORT ---
[facility]07 am CLINICAL HISTORY: Pleural effusion COMPARISON: March 30 FINDINGS: Right pleural effusion has decreased in size. A pneumothorax is not seen. Overlying artifact is seen overlying the right lung base. An additional structure extends superiorly along the lower lateral right hemithorax abdomen makes a 90 degree turn medially. It is unclear wheth er this represents a chest tube or overlying artifact and should correlated clinically Small left pleural effusion
[2020-03-31] MEDS: NOREPINEPHRINE 4 MG in D5W 250 ML IV PRN ×2 (09:36→13:14)
--- NOTE | 2020-03-31 11:03 | P.PN ---
Subjective Date of Service: 03/31/20 Primary Care Provider: Felicitas Herndon NP; Nephrology-Dr. Call Chief Complaint: Unresponsive on BiPAP Patient continues to be critically ill, on BIPAP, but was off yesterday for most of day after chest tube placed Physical Examination - Vital Signs Temperature: 99.1 F Blood Pressure: 81/49 Pulse: 70 Respirations: 18 Pulse Ox (%): 96 - Physical Exam General: Delirious HEENT: Other (BIPAP on ) Respiratory: Diminished, Other (RIGHT chest tube in place, 3.5 liters straw colored fluid, no air leak.) - Studies Medications List Reviewed: Yes Assessment And Plan - Current Problems (Diagnosis) (1) Pleural effusion Current Visit: Yes Status: Acute Plan: - continue chest tube - consider CT chest if X-ray not much improved and hemodynamically stable for transport to rule out multiloculated effusion Physician Review Additional Text: Impression: Shortness of breath secondary to acute on chronic right large pleural effusion with acute respiratory failure and noted hypercapnia Hypotension etiology unknown with history of hypertension suspect related to above End-stage renal disease on hemodialysis Diabetes mellitus type 2 insulin-dependent Atrial fibrillation on chronic anti coagulation therapy Chronic diastolic CHF Plan: Shortness of breath secondary to acute on chronic right large pleural effusion with acute respiratory failure and noted hypercapnia: Case discussed with pulmonology. Continue to hold Eliquis. Pulmonology recommends chest tube. Case discussed with surgery. Surgery plans to putting chest tube. Will need to obtain fluid and sent for analysis. Will reassess after chest tube. Maintain oxygen above 93%. Patient was requiring nasal cannula this morning. BiPAP last night. Continue with BiPAP if required. Continue with pulmonology recommendations. Case discussed with nephrology yesterday. Patient will likely require dialysis once blood pressure stable. Will wean off dopamine. Hypotension etiology unknown with history of hypertension suspect related to above: Hold blood pressure medication at this time. Continue with midodrine. Wean off dopamine. Case discussed with cardiology. Will increase midodrine. End-stage renal disease on hemodialysis: Patient will likely require dialysis once blood pressure more stable. Diabetes mellitus type 2 insulin-dependent: Will provide insulin sliding scale. Monitor Accu-Cheks. Atrial fibrillation on chronic anti coagulation therapy: Continue to hold chronic anti coagulation therapy in preparation for chest tube. Chronic diastolic CHF: This appears stable. Will monitor closely.
--- NOTE | 2020-03-31 16:07 | P.PN ---
Subjective Date of Service: 03/31/20 Primary Care Provider: Felicitas Herndon NP; Nephrology-Dr. Call Chief Complaint: Unresponsive on BiPAP Subjective: Other (Patient remains on BiPAP.) Physical Examination - Vital Signs Temperature: 99.1 F Blood Pressure: 81/49 Pulse: 70 Respirations: 18 Pulse Ox (%): 96 - Physical Exam General: Alert HEENT: Atraumatic Neck: Supple Respiratory: Expiratory wheezes, Other (Chest tube in place.) Cardiovascular: Normal pulses, Regular rate/rhythm Neurological: Normal strength at 5/5 x4 extr - Studies Medications List Reviewed: Yes Assessment & Plan Discharge Plan: Other (Long-term acute care facility verses skilled placement v ersus transfer) Plan to discharge in: Greater than 2 days Physician Review Additional Text: Impression: Shortness of breath secondary to acute on chronic right large pleural effusion with acute respiratory failure and noted hypercapnia Hypotension etiology unknown with history of hypertension suspect related to above End-stage renal disease on hemodialysis Diabetes mellitus type 2 insulin-dependent Atrial fibrillation on chronic anti coagulation therapy Chronic diastolic CHF Plan: Shortness of breath secondary to acute on chronic right large pleural effusion with acute respiratory failure and noted hypercapnia: Case discussed with surgery. Continue to hold Eliquis. Will discuss with pulmonology on when to restart. Surgery will consider getting CT scan to rule out multi loculated effusion. If so patient will require VATS. Continue to wean off dopamine. Will discuss further with nephrology. Hypotension etiology unknown with history of hypertension suspect related to above: Hold blood pressure medication at this time. Continue with midodrine. This was increased. Wean off dopamine. Case discussed with cardiology. End-stage renal disease on hemodialysis: Patient received dialysis yesterday Diabetes mellitus type 2 insulin-dependent: Will provide insulin sliding scale. Monitor Accu-Cheks. Atrial fibrillation on chronic anti coagulation therapy: Will discuss with cardiology and pulmonology on when this can be restarted Chronic diastolic CHF: This appears stable. Will monitor closely. Time Spent Managing Pts Care (In Minutes): 55
[2020-03-31] MEDS ORDERED: Pharmacy Consult 1 EA XX PRN (16:21)
--- NOTE | 2020-03-31 17:13 | PN ---
Mr. Thorpe remains in the ICU. He remains on BiPAP. He remains hypotensive on dopamine as well as mid odrine. He had a thoracentesis yesterday of a large pleural effusion. His oxygenation has improved. He did have dialysis. Remains in atrial fibrillation at a rate of about 90-100. He is on heparin. His Eliquis has been held. His diabetes is fairly well controlled. Echocardiogram was still pendi this morning and I will make sure he gets that done today before making any further changes on the medicine. I will continue to follow him. NB/MODL Voice ID: [id number] Report ID: [id number]
[2020-03-31] MEDS: CEFTRIAXONE/SWI 1gm 1 GM/10 ML SYR IVP SCH (18:06)
[2020-03-31] MEDS: dexAMETHasone 4 MG/ML VIAL IV SCH (18:06)
--- NOTE | 2020-03-31 21:24 | P.PN ---
Date of Service: 03/31/20 Vital Signs Temp Pulse Resp BP Pulse Ox 98.7 F 94 H 22 H 100/65 98 03/31/20 20:00 03/31/20 20:30 03/31/20 20:30 03/31/20 20:30 03/31/20 20:30 Medications Acetaminophen (Tylenol -Extra Strength) 500 mg PO Q4HP PRN PRN Reason: TEMP > 101' F Stop: 04/28/20 16:46 Hydrocodone Bitart/Acetaminophen ([place] 5/325) 1 tab PO TID PRN PRN Reason: Pain scale 8-10 (Severe) Stop: 04/29/20 09:17 Last Admin: 03/30/20 17:13 Dose: 1 tab Documented by: Calcium Acetate (Phoslo) 667 mg PO TIDWM [facility] Stop: 04/30/20 08:01 Last Admin: 03/31/20 18:07 Dose: 667 mg Documented by: Dexamethasone (Decadron) 4 mg IV BID [facility] Stop: 04/30/20 17:01 Last Admin: 03/31/20 18:06 Dose: 4 mg Documented by: Furosemide (Lasix) 20 mg IV BIDL [facility] Stop: 04/28/20 19:01 Last Admin: 03/31/20 17:00 Dose: Not Given Documented by: Heparin Sodium (Porcine) (Heparin 5,000 Units/Ml) 5,000 unit SQ Q12HR [facility] Stop: 04/28/20 21:01 Last Admin: 03/31/20 20:55 Dose: 5,000 unit Documented by: Heparin Sodium (Porcine) (Heparin 1,000 Units/Ml) 6,000 unit IV EVERY HD PRN PRN Reason: AFTER EACH Stop: 04/29/20 16:58 Albumin Human (Albumin 25%) 50 mls @ 100 mls/hr IV EVERY HD [facility] Stop: 04/29/20 17:01 Last Admin: 03/30/20 23:32 Dose: 50 mls Documented by: Norepinephrine Bitartrate 4 mg (/ Dextrose) 254 mls @ 0 mls/hr IV PRN PRN; Protocol PRN Reason: Hemodynamic Parameters Stop: 04/30/20 08:40 Last Admin: 03/31/20 13:14 Dose: 254 mls Documented by: Dopamine HCl/Dextrose (Dopamine 400 Mg/250 Ml D5w (Premix)) 400 mg in 250 mls @ 0 mls/hr IV PRN PRN; Protocol PRN Reason: Hemodynamic Parameters Stop: 04/30/20 12:16 Last Admin: 03/31/20 20:56 Dose: 250 mls Documented by: Pharmacy Consult (Pharmacy Consult) 1 mls @ 1 mls/hr XX DAILYPRN PRN; Protocol PRN Reason: Vancomycin dose by pharmacy Stop: 04/30/20 16:22 Ceftriaxone Sodium/Sodium Chloride (Rocephin 1 Gm/10 Ml Swi Ivp) 1 gm in 10 mls @ 600 mls/hr IVP DAILY [facility]; Protocol Stop: 04/30/20 17:01 Last Admin: 03/31/20 18:06 Dose: 10 mls Documented by: Insulin Human Regular (Novolin -R) 0 unit SQ ACHS [facility]; Protocol Stop: 04/28/20 16:46 Last Admin: 03/31/20 20:55 Dose: 6 unit Documented by: Mannitol (Mannitol 12.5 Gm/50 Ml Vial) 12.5 gm IV EVERY HD PRN PRN Reason: FOR BP SUPPORT AT HD Stop: 04/29/20 16:58 Midodrine (Proamatine) 10 mg PO TID [facility] Stop: 04/29/20 21:01 Last Admin: 03/31/20 20:54 Dose: 10 mg Documented by: Ondansetron HCl (Zofran) 4 mg IV Q6HP PRN PRN Reason: NAUSEA / VOMITING Stop: 04/28/20 16:46 Last Admin: 03/30/20 15:48 Dose: 4 mg Documented by: Sodium Chloride (Normal Saline Flush) 10 ml IV BID [facility] Stop: 04/28/20 21:01 Last Admin: 03/31/20 20:56 Dose: 10 ml Documented by: Tramadol HCl (Ultram) 50 mg PO TID PRN PRN Reason: Pain scale 5-7 (Moderate) Stop: 04/29/20 09:17 Last Admin: 03/30/20 13:50 Dose: 50 mg Documented by: Assessment/ Plan: Nephrology Less responsive today. Limited IH/ ROS due to AMS. CPS stable with CP or SOB. Pressor therapy titrated overnight to maintain BP. HD yesterday with ~1 Liter removed. High output from the chest tube. No acute events overnight. Vitals, medications, blood work and imaging reviewed in the chart. General: Oriented x3, Cooperative HEENT: Atraumatic Neck: Supple, JVD distended Respiratory: Diminished Cardiovascular: Regular rate/rhythm, Edema Gastrointestinal: Soft and benign, Non-distended Musculoskeletal: No clubbing, No contractures Integumentary: No rashes, No cyanosis Neurological: Normal speech Blood work reviewed in the chart. Imagings Data: EXAM DESCRIPTION: RAD - Chest Single View - 03/30/2020 8:16 am CLINICAL HISTORY: R/O Pneumo. Chest pain. COMPARISON: Chest Single View dated 03/30/2020; Chest Single View dated 03/29/2020; Chest Single View dated 12/28/2018; Chest Single View dated 05/15/2018 FINDINGS: Portable technique limits examination quality. A large amount of right pleural fluid is seen. No pneumothorax is evident. Heart is moderately enlarged in size. No displaced fractures. IMPRESSION: No measurable pneumothorax seen. Conclusions/Impression: A/ ESRD on HD. Hyperkalemia HTN with CKD/ CHF complicated by hypotension of unclear etiology. Shock. Diastolic CHF, A/C. Pleural effusion. Respiratory failure, A/C. DM II with CKD. Anemia in CKD. JERALD/ Secondary HyperPTH. P/ Continue current POC and Medications. IVF bolus as needed. Continue Dopamine and Midodrine; titrate as needed. Next HD tomorrow. Surgery following chest tube. Continue Bipap. Echocardiogram pending. No NSAIDs. AM labs. Daily weight.
[2020-03-31] MEDS: TRAMADOL HCL 50 MG TAB PO PRN (22:01)
[2020-04-01] MEDS: DOPAMINE/D5W 400 MG/250 ML BAG IV PRN ×2 (05:03→20:52)
[2020-04-01 06:22] LABS: Absolute Lymphocytes (CBC) 0.5 K/uL (0.7-4.9); Basophils % 0.8 % (0-1.3); Hematocrit 34.8 % (39.6-49.0); Lymphocytes % 3.9 % (15.3-44.8); MPV 8.9 fL (7.6-11.3); RBC Red Blood Cell Count 3.54 M/uL (4.33-5.43)
[2020-04-01 07:20] LABS: Magnesium 2.6 mg/dL (1.8-2.4)
--- NOTE | 2020-04-01 07:31 | RAD REPORT ---
EXAM DESCRIPTION: [place] Single View04/01/2020 5:46 am CLINICAL HISTORY: Chest pain COMPARISON: March 31 FINDINGS: Small left pleural effusion with mild left basilar opacity Right base is hazy probably combination of small to moderate pleural effusion and atelectasis. There may be mild interstitial pulmonary edema. The heart remains enlarged
[2020-04-01] MEDS: CA ACETATE 667 MG CAP PO SCH ×3 (08:03→18:02)
[2020-04-01] MEDS: MIDODRINE HCL 5 MG TABLET PO SCH ×3 (08:03→20:55)
[2020-04-01] MEDS: dexAMETHasone 4 MG/ML VIAL IV SCH ×2 (08:04→20:53)
[2020-04-01] MEDS: HEPARIN 5000 UNIT/ML 1 ML VIAL SQ SCH ×2 (08:04→20:53)
[2020-04-01 08:15] LABS: Blood Morphology Comment NOT SEEN (NOT SEEN); Platelet Estimate ADEQ; Urine White Blood Cell Casts OK
[2020-04-01] MEDS: INSULIN -REGULAR HUMAN 50 UNIT/0.5 ML ML SQ SCH ×4 (08:25→20:55)
--- NOTE | 2020-04-01 08:33 | P.PN ---
Subjective Date of Service: 04/01/20 Primary Care Provider: Felicitas Herndon NP; Nephrology-Dr. Call Chief Complaint: Shock Patient is doing much better his of BiPAP nasal cannula oxygen no chest pain fever or chill still requiring Levophed and dopamine chest ultrasound report pending Review of Systems General: Weakness Respiratory: Shortness of Breath Physical Examination - Vital Signs Temperature: 98.0 F Blood Pressure: 108/69 Pulse: 89 Respirations: 21 Pulse Ox (%): 96 - Physical Exam General: Alert, In no apparent distress, Oriented x3 HEENT: Atraumatic Neck: Supple Cardiovascular: No edema, Regular rate/rhythm - Studies Medications List Reviewed: Yes Assessment & Plan - Problems (Diagnosis) (1) Pleural effusion Current Visit: Yes Status: Acute Plan: Patient admitted with pleural effusion evidence of an infection CT of the chest with contrast ordered patient is a air over 70 150 meals out from his chest tube (2) Shock Current Visit: Yes Status: Acute Plan: Patient is hypotensive low cortisol level continue with Decadron await ultrasound report of the chest would consider pleurodesis tomorrow cultures so far negative cord results level is still relatively low patient is an IV antibiotics cultures negative echo pending
--- NOTE | 2020-04-01 08:37 | ECHO ---
HEIGHT: 5 ft 11 in WEIGHT: 202 lb 1.6 oz DATE OF STUDY: 03/31/[address]: Lien Kim MD 2-DIMENSIONAL: YES M.MODE: YES DOPPLER: YES COLOR FLOW: YES TDS: YES PORTABLE: YES DEFINITY: NO BUBBLE STUDY: NO DIAGNOSIS: ELEVATED TROPONIN CARDIAC HISTORY: CATHERIZATION: NO SURGERY: NO PROSTHETIC VALVE: NO PACEMAKER: NO MEASUREMENTS (cm) DIASTOLIC (NORMALS) SYSTOLIC (NORMALS) IVSd 1.1 (0.6-1.2) LA Diam 4.5 (1.9-4.0) LVEF 71% LVIDd 4.0 (3.5-5.7) LVIDs 2.4 (2.0-3.5) %FS 40% LVPWd 1.1 (0.6-1.2) Ao Diam (2.0-3.7) 2 DIMENSIONAL ASSESSMENT: RIGHT ATRIUM: NORMAL LEFT ATRIUM: NORMAL RIGHT VENTRICLE: NORMAL LEFT VENTRICLE: NORMAL TRICUSPID VALVE: NORMAL MITRAL VALVE: MITRAL ANNULAR CALCIFICATION PULMONIC VALVE: NORMAL AORTIC VALVE: SCLEROSIS PERICARDIAL EFFUSION: NONE AORTIC ROOT: NORMAL LEFT VENTRICULAR WALL MOTION: NORMAL LEFT VENTRICULAR EJECTION FRACTION. DECREASED LEFT VENTRICULAR COMPLIANCE. DOPPLER/COLOR FLOW: NORMAL COMMENTS: DECREASED LEFT VENTRICULAR COMPLIANCE CONSISTANT WITH DIASTOLIC DYSFUNCTION. NORMAL LEFT VENTRICULAR EJECTION FRACTION. MITRAL ANNULAR CALCIFICATION. AORTIC SCLEROSIS. TECHNOLOGIST: Adry PADILLA
[2020-04-01] MEDS: FUROSEMIDE 20 MG/ 2ML VIAL IV SCH ×2 (09:00→16:59)
[2020-04-01] MEDS: CEFTRIAXONE/SWI 1gm 1 GM/10 ML SYR IVP SCH (09:19)
--- NOTE | 2020-04-01 11:33 | RAD REPORT ---
EXAM DESCRIPTION: CT - Thorax W/ Con - 04/01/2020 11:07 am CLINICAL HISTORY: Chest pain/pleural effusion TECHNIQUE: Computed axial tomography of the chest was obtained. 100 cc Isovue 300 was administered i ntravenously. All CT scans are performed using dose optimization technique as appropriate and may include automated exposure control or mA/KV adjustment according to patient size. FINDINGS: A right chest tube has its tip within the lower anterior right pleural space. A very small pneumothorax is present. Small bilateral pleural effusions. No loculation. Bibasilar atelectasis No mediastinal or hilar lymphadenopathy IMPRESSION: A right chest tube has its tip within the lower anterior right pleural space. A very sma ll pneumothorax is present. Small bilateral pleural effusions. No loculation.
--- NOTE | 2020-04-01 11:35 | RAD REPORT ---
EXAM DESCRIPTION: US - Chest - 04/01/2020 8:00 am CLINICAL HISTORY: Pleural effusion FINDINGS: Small pleural effusion inferolateral right pleural space. The maximum width visualized 2.4 millimeters. No loculation noted IMPRESSION: Small right pleural effusion
--- NOTE | 2020-04-01 13:26 | P.PN ---
Subjective Date of Service: 04/01/20 Primary Care Provider: Felicitas Herndon NP; Nephrology-Dr. Call Chief Complaint: Shock Subjective: Other (Patient appears better. Patient on nasal cannula) Physical Examination - Vital Signs Temperature: 98.0 F Blood Pressure: 93/76 Pulse: 81 Respirations: 19 Pulse Ox (%): 97 - Physical Exam General: Alert, In no apparent distress, Oriented x3, Cooperative HEENT: Atraumatic Neck: Supple Respiratory: Diminished (To the bases bilateral) Cardiovascular: Normal pulses, Regular rate/rhythm Gastrointestinal: Normal bowel sounds Integumentary: No erythema, No warmth, No cyanosis Neurological: Normal speech, Normal strength at 5/5 x4 extr, Normal tone, Normal affect - Studies Medications List Reviewed: Yes Assessment & Plan Discharge Plan: Other (Skilled placement facility) Plan to discharge in: Greater than 2 days Physician Review Additional Text: Impression: Shortness of breath secondary to acute on chronic right large pleural effusion with acute respiratory failure and noted hypercapnia Hypotension etiology unknown with history of hypertension suspect related to above End-stage renal disease on hemodialysis Suspect adrenal insufficiency Diabetes mellitus type 2 insulin-dependent Atrial fibrillation on chronic anti coagulation therapy Chronic diastolic CHF Plan: Shortness of breath secondary to acute on chronic right large pleural effusion with acute respiratory failure and noted hypercapnia: Case discussed with surgery and pulmonology. Pulmonology plans to obtain CT scan to evaluate for possible multi loculated effusion. Chest tube in place. Patient may require pleurodesis versus VATS procedure. Case also discuss with nephrology. Patient has responded well with Decadron. Pulmonology plans to evaluate for adrenal insufficiency. Cardiology reports normal ejection fraction but with underlying diastolic CHF. Still unclear why patient is hypotensive. Continue to wean off vasopressors. Will adjust medication accordingly. Anticipate need for skilled placement in the future. Hypotension etiology unknown with history of hypertension suspect related to above: Continue to wean off vasopressor. Patient on midodrine Suspect adrenal insufficiency: Patient to have ACTH stimulation test. Patient responding well to Decadron End-stage renal disease on hemodialysis: Patient will receive dialysis after CT scan done Diabetes mellitus type 2 insulin-dependent: Will provide insulin sliding scale. Monitor Accu-Cheks. Atrial fibrillation on chronic anti coagulation therapy: Will discuss with cardiology and pulmonology on when this can be restarted Chronic diastolic CHF: This appears stable. Will monitor closely. Ejection fraction within normal range. Patient with diastolic dysfunction Time Spent Managing Pts Care (In Minutes): 55
[2020-04-01] MEDS ORDERED: D50W 25 GM/50 ML SYRINGE/VIAL IV PRN (13:27)
[2020-04-01] MEDS ORDERED: GLUCAGON 1 MG/VIAL IM PRN (13:27)
--- NOTE | 2020-04-01 15:52 | PN ---
Date of Progress Note: 04/01/2020 Mr. Thorpe came in with a large pleural effusion on the right, status post thoracentesis. He came in w ith hypotension and he remains on dopamine and Levophed. He is on heparin for atrial fibrillation. His Eliquis has been held. He is on midodrine. His blood pressure is about 110/65 today. His blood glucose is 315. He does have end-stage renal disease. Nephrology, Pulmonology are following. Ther e is a plan for a CT of his chest to rule out loculated pleural effusion as patient continues to be h ypotensive and requiring oxygen support. His last O2 was 97% nasal cannula on 4 L. He is on antibio tics. His ejection fraction was normal by echocardiogram yesterday without any pericardial effusion. He does have some decreased left ventricular compliance. I agree with his present regimen. I will continue to follow him. LALO/TAMARA Voice ID: [id number] Report ID: [id number]
[2020-04-01] MEDS ORDERED: INSULIN GLARGINE 100 UNITS/ML SQ SCH (21:00)
--- NOTE | 2020-04-01 22:27 | P.PN ---
Date of Service: 04/01/20 Vital Signs Temp Pulse Resp BP Pulse Ox 97.3 F 83 22 H 98/58 L 100 04/01/20 20:00 04/01/20 22:00 04/01/20 22:00 04/01/20 22:00 04/01/20 22:00 Medications Acetaminophen (Tylenol -Extra Strength) 500 mg PO Q4HP PRN PRN Reason: TEMP > 101' F Stop: 04/28/20 16:46 Hydrocodone Bitart/Acetaminophen ([place] 5/325) 1 tab PO TID PRN PRN Reason: Pain scale 8-10 (Severe) Stop: 04/29/20 09:17 Last Admin: 03/30/20 17:13 Dose: 1 tab Documented by: Calcium Acetate (Phoslo) 667 mg PO TIDWM [facility] Stop: 04/30/20 08:01 Last Admin: 04/01/20 18:02 Dose: 667 mg Documented by: Cosyntropin (Cortrosyn) 0.25 mg IV 1X ONE Stop: 04/02/20 08:01 Dexamethasone (Decadron) 4 mg IV BID [facility] Stop: 04/30/20 17:01 Last Admin: 04/01/20 20:53 Dose: 4 mg Documented by: Dextrose (Dextrose 50% Syringe/Vial) 12.5 gm IV PRN PRN; Protocol PRN Reason: HYPOGLYCEMIA Stop: 05/01/20 13:28 Glucagon (Glucagen) 1 mg IM 1X PRN; Protocol PRN Reason: HYPOGLYCEMIA Stop: 05/01/20 13:28 Heparin Sodium (Porcine) (Heparin 5,000 Units/Ml) 5,000 unit SQ Q12HR [facility] Stop: 04/28/20 21:01 Last Admin: 04/01/20 20:53 Dose: 5,000 unit Documented by: Heparin Sodium (Porcine) (Heparin 1,000 Units/Ml) 2,000 unit IV EVERY HD [facility] Stop: 04/06/20 15:01 Last Admin: 04/01/20 14:23 Dose: 2,000 unit Documented by: Albumin Human (Albumin 25%) 50 mls @ 100 mls/hr IV EVERY HD [facility] Stop: 04/29/20 17:01 Last Admin: 03/30/20 23:32 Dose: 50 mls Documented by: Norepinephrine Bitartrate 4 mg (/ Dextrose) 254 mls @ 0 mls/hr IV PRN PRN; Protocol PRN Reason: Hemodynamic Parameters Stop: 04/30/20 08:40 Last Admin: 03/31/20 13:14 Dose: 254 mls Documented by: Dopamine HCl/Dextrose (Dopamine 400 Mg/250 Ml D5w (Premix)) 400 mg in 250 mls @ 0 mls/hr IV PRN PRN; Protocol PRN Reason: Hemodynamic Parameters Stop: 04/30/20 12:16 Last Admin: 04/01/20 20:52 Dose: 250 mls Documented by: Pharmacy Consult (Pharmacy Consult) 1 mls @ 1 mls/hr XX DAILYPRN PRN; Protocol PRN Reason: Vancomycin dose by pharmacy Stop: 04/30/20 16:22 Ceftriaxone Sodium/Sodium Chloride (Rocephin 1 Gm/10 Ml Swi Ivp) 1 gm in 10 mls @ 600 mls/hr IVP DAILY [facility]; Protocol Stop: 04/30/20 17:01 Last Admin: 04/01/20 09:19 Dose: 10 mls Documented by: Insulin Glargine (Lantus) 10 units SQ BEDTIME [facility] Stop: 05/01/20 21:01 Last Admin: 04/01/20 20:54 Dose: 10 units Documented by: Insulin Human Regular (Novolin -R) 0 unit SQ ACHS [facility]; Protocol Stop: 04/28/20 16:46 Last Admin: 04/01/20 20:55 Dose: 8 unit Documented by: Mannitol (Mannitol 12.5 Gm/50 Ml Vial) 12.5 gm IV EVERY HD PRN PRN Reason: FOR BP SUPPORT AT HD Stop: 04/29/20 16:58 Midodrine (Proamatine) 10 mg PO TID [facility] Stop: 04/29/20 21:01 Last Admin: 04/01/20 20:55 Dose: 10 mg Documented by: Ondansetron HCl (Zofran) 4 mg IV Q6HP PRN PRN Reason: NAUSEA / VOMITING Stop: 04/28/20 16:46 Last Admin: 03/30/20 15:48 Dose: 4 mg Documented by: Sodium Chloride (Normal Saline Flush) 10 ml IV BID [facility] Stop: 04/28/20 21:01 Last Admin: 04/01/20 20:54 Dose: 10 ml Documented by: Sodium Chloride (Sodium Chloride 10 Ml Inj) 1 ml IV 1X ONE Stop: 04/02/20 08:01 Tramadol HCl (Ultram) 50 mg PO TID PRN PRN Reason: Pain scale 5-7 (Moderate) Stop: 04/29/20 09:17 Last Admin: 03/31/20 22:01 Dose: 50 mg Documented by: Assessment/ Plan: Nephrology Improved mental status today and feeling better. CPS stable without CP or SOB. Still on pressor therapy. Chest tube output 600-700ml. No acute events overnight. Vitals, medications, blood work and imaging reviewed in the chart. General: Oriented x3, Cooperative HEENT: Atraumatic Neck: Supple, JVD distended Respiratory: Diminished Cardiovascular: Regular rate/rhythm, Edema Gastrointestinal: Soft and benign, Non-distended Musculoskeletal: No clubbing, No contractures Integumentary: No rashes, No cyanosis Neurological: Normal speech Blood work reviewed in the chart. Imagings Data: EXAM DESCRIPTION: RAD - Chest Single View - 03/30/2020 8:16 am CLINICAL HISTORY: R/O Pneumo. Chest pain. COMPARISON: Chest Single View dated 03/30/2020; Chest Single View dated 03/29/2020; Chest Single View dated 12/28/2018; Chest Single View dated 05/15/2018 FINDINGS: Portable technique limits examination quality. A large amount of right pleural fluid is seen. No pneumothorax is evident. Heart is moderately enlarged in size. No displaced fractures. IMPRESSION: No measurable pneumothorax seen. Conclusions/Impression: A/ ESRD on HD. Hyperkalemia HTN with CKD/ CHF complicated by hypotension of unclear etiology. Shock. Diastolic CHF, A/C. Pleural effusion. Respiratory failure, A/C. DM II with CKD. Anemia in CKD. JERALD/ Secondary HyperPTH. P/ Continue current POC and Medications. IVF bolus as needed. Continue Dopamine and Midodrine; titrate as needed. Acute HD ordered today. Seen and examined on HD. Surgery following chest tube. Continue Bipap. Echocardiogram pending. No NSAIDs. AM labs. Daily weight. Case reviewed with Dr. Barron. Greater than 30min patient care.
[2020-04-02 05:31] LABS: Absolute Lymphocytes (CBC) 0.3 K/uL (0.7-4.9); Basophils % 1.1 % (0-1.3); Hematocrit 35.5 % (39.6-49.0); Lymphocytes % 3.1 % (15.3-44.8); MPV 8.6 fL (7.6-11.3); RBC Red Blood Cell Count 3.61 M/uL (4.33-5.43)
[2020-04-02 06:22] LABS: Magnesium 2.5 mg/dL (1.8-2.4); Potassium 4.7 mmol/L (3.5-5.1)
[2020-04-02] MEDS ORDERED: COSYNTROPIN 0.25 MG VIAL IV ONE (08:00)
[2020-04-02] MEDS ORDERED: SODIUM CHLORIDE 0.9% 10ML INJ IV ONE (08:00)
--- NOTE | 2020-04-02 08:37 | RAD REPORT ---
EXAM DESCRIPTION: RAD - Chest Single View - 04/02/2020 6:25 am CLINICAL HISTORY: Chest Tube Chest pain. COMPARISON: Chest Single View dated 04/01/2020; Chest Single View dated 03/31/2020; Chest Single View da em 03/30/2020; Chest Single View dated 03/30/2020; Thorax W/ Con dated 04/01/2020; Chest dated 04/01/2020 FINDINGS: Portable technique limits examination quality. Patient positioning limits assessment. Mild improvement in lung aeration is seen since 04/01/2020. Ri ght pleural effusion with chest tube in place is noted. No measurable pneumothorax. Cardiac size is d ifficult to adequately assess. IMPRESSION: Limited examination demonstrating mild improvement in lung aeration since comparative st udy.
[2020-04-02] MEDS: CEFTRIAXONE/SWI 1gm 1 GM/10 ML SYR IVP SCH (09:26)
[2020-04-02] MEDS: MIDODRINE HCL 5 MG TABLET PO SCH ×3 (09:28→20:43)
[2020-04-02] MEDS: dexAMETHasone 4 MG/ML VIAL IV SCH (09:28)
[2020-04-02] MEDS: HEPARIN 5000 UNIT/ML 1 ML VIAL SQ SCH ×2 (09:28→20:40)
[2020-04-02] MEDS: CA ACETATE 667 MG CAP PO SCH ×3 (09:31→16:35)
[2020-04-02] MEDS: INSULIN -REGULAR HUMAN 50 UNIT/0.5 ML ML SQ SCH ×4 (09:31→20:41)
[2020-04-02] MEDS ORDERED: DOCUSATE NA 100 MG CAP PO SCH (11:15)
--- NOTE | 2020-04-02 13:58 | P.PN ---
Subjective Date of Service: 04/02/20 Primary Care Provider: Felicitas Herndon NP; Nephrology-Dr. Call Chief Complaint: Shock Subjective: Doing well Physical Examination - Vital Signs Temperature: 97.4 F Blood Pressure: 104/59 Pulse: 84 Respirations: 16 Pulse Ox (%): 95 - Physical Exam General: Alert, Cooperative HEENT: Atraumatic Neck: Supple Respiratory: Other (Better air movement bilateral. Right chest tube in place) Cardiovascular: Normal pulses, Regular rate/rhythm Neurological: Normal speech, Normal strength at 5/5 x4 extr, Normal tone, Normal affect - Studies Medications List Reviewed: Yes Assessment & Plan Discharge Plan: Home Plan to discharge in: Greater than 2 days Physician Review Additional Text: Impression: Shortness of breath secondary to acute on chronic right large pleural effusion with acute respiratory failure and noted hypercapnia Hypotension etiology unknown with history of hypertension suspect related to above End-stage renal disease on hemodialysis Suspect adrenal insufficiency Diabetes mellitus type 2 insulin-dependent Atrial fibrillation on chronic anti coagulation therapy Chronic diastolic CHF Plan: Shortness of breath secondary to acute on chronic right large pleural effusion with acute respiratory failure and noted hypercapnia: Case discussed with surgery and pulmonology. CT shows no multi loculated effusion. Pulmonology plans to do pleurodesis. Case also discuss with nephrology. Patient has responded well with Decadron. Pulmonology plans to evaluate for adrenal insufficiency. Cardiology reports normal ejection fraction but with underlying diastolic CHF. Still unclear why patient is hypotensive. Continue to wean off vasopressors. Will adjust medication accordingly. Anticipate need for skilled placement in the future. Hypotension etiology unknown with history of hypertension suspect related to above: Continue to wean off vasopressor. Patient on midodrine Suspect adrenal insufficiency: Patient to have ACTH stimulation test. Patient responding well to Decadron End-stage renal disease on hemodialysis: Patient will receive dialysis after CT scan done Diabetes mellitus type 2 insulin-dependent: Will provide insulin sliding scale. Monitor Accu-Cheks. Atrial fibrillation on chronic anti coagulation therapy: Will discuss with cardiology and pulmonology on when this can be restarted Chronic diastolic CHF: This appears stable. Will monitor closely. Ejection fraction within normal range. Patient with diastolic dysfunction Time Spent Managing Pts Care (In Minutes): 55
--- NOTE | 2020-04-02 14:37 | P.PN ---
Subjective Date of Service: 04/02/20 Primary Care Provider: Felicitas Herndon NP; Nephrology-Dr. Call Chief Complaint: Shock Patient is doing better his a nasal cannula oxygen however is still requiring low doses of dopamine no evidence of adrenal insufficiency is acth stimulation responses normal patient feels fine has so IA slight lower extremity edema tolerating dialysis Review of Systems General: Weakness Respiratory: Shortness of Breath Physical Examination - Vital Signs Temperature: 97.4 F Blood Pressure: 104/59 Pulse: 84 Respirations: 16 Pulse Ox (%): 95 - Physical Exam General: Alert, Oriented x3 Neck: Supple Respiratory: Clear to auscultation bilaterally Cardiovascular: Normal S1 S2, Edema - Studies Medications List Reviewed: Yes Assessment & Plan - Problems (Diagnosis) (1) Pleural effusion Current Visit: Yes Status: Acute Plan: Patient is assessed still significant drainage from the chest tube is drained total over 5 L since admission chemistries are still pending is a send out test there is no evidence of infection currently there is no air leak on the chest tube DT scan no evidence of any lung mass he may benefit from an iodine pleurodesis (2) Shock Current Visit: Yes Status: Acute Plan: Patient is hypotensive low cortisol level continue with Decadron await ultrasound report of the chest would consider pleurodesis tomorrow cultures so far negative cord results level is still relatively low patient is an IV antibiotics cultures negative echo pending also Dc antibiotics
--- NOTE | 2020-04-02 20:27 | PN ---
Mr. Thorpe is being followed for multiple medical problems including diastolic congestive heart failure , atrial fibrillation, pleural effusion status post thoracentesis, hypotension on pressors, end-stage renal disease, diabetes, and hypertension. Today, his blood pressure is 104/59. He remained in atr ial fibrillation at a rate of 84. He is afebrile. His I's and O's are adequate. He has a 96% nasal cannula oxygen saturation. Last creatinine was 5.79. Last hemoglobin was 11.4. His last glucose i s 418 that is being treated. He is off dopamine and off Levophed, on antibiotics. Remains on midodr ine. He continues to be on insulin. Chest CT that was done yesterday revealed a right chest tube in the lower anterior right pleural space with a very small pneumothorax and small bilateral effusion, but no loculation. The patient continues to be followed by Dr. Call and Dr. Robert. He is rece iving Decadron. Pleurodesis is being considered. Wound antibiotics have been discontinued. From a c ardiac standpoint, his diastolic congestive heart failure is stable. His atrial fibrillation is rate controlled. He is off Eliquis for now. He is on heparin. He can resume his Eliquis eventually once it is okay with Daniel Robert and Dr. Call and Dr. Barron. I will sign off his case for now. LALO/MODL Voice ID: [id number] Report ID: [id number]
[2020-04-02] MEDS: INSULIN GLARGINE 100 UNITS/ML SQ SCH (20:42)
--- NOTE | 2020-04-02 22:19 | P.PN ---
Date of Service: 04/02/20 Vital Signs Temp Pulse Resp BP Pulse Ox 98.7 F 79 18 92/57 L 93 04/02/20 16:00 04/02/20 19:15 04/02/20 19:15 04/02/20 19:15 04/02/20 19:15 Medications Acetaminophen (Tylenol -Extra Strength) 500 mg PO Q4HP PRN PRN Reason: TEMP > 101' F Stop: 04/28/20 16:46 Hydrocodone Bitart/Acetaminophen ([place] 5/325) 1 tab PO TID PRN PRN Reason: Pain scale 8-10 (Severe) Stop: 04/29/20 09:17 Last Admin: 03/30/20 17:13 Dose: 1 tab Documented by: Calcium Acetate (Phoslo) 667 mg PO TIDWM SACHA Stop: 04/30/20 08:01 Last Admin: 04/02/20 16:35 Dose: 667 mg Documented by: Dextrose (Dextrose 50% Syringe/Vial) 12.5 gm IV PRN PRN; Protocol PRN Reason: HYPOGLYCEMIA Stop: 05/01/20 13:28 Glucagon (Glucagen) 1 mg IM 1X PRN; Protocol PRN Reason: HYPOGLYCEMIA Stop: 05/01/20 13:28 Heparin Sodium (Porcine) (Heparin 5,000 Units/Ml) 5,000 unit SQ Q12HR SACHA Stop: 04/28/20 21:01 Last Admin: 04/02/20 20:40 Dose: 5,000 unit Documented by: Heparin Sodium (Porcine) (Heparin 1,000 Units/Ml) 2,000 unit IV EVERY HD SACHA Stop: 04/06/20 15:01 Last Admin: 04/01/20 14:23 Dose: 2,000 unit Documented by: Albumin Human (Albumin 25%) 50 mls @ 100 mls/hr IV EVERY HD SACHA Stop: 04/29/20 17:01 Last Admin: 03/30/20 23:32 Dose: 50 mls Documented by: Norepinephrine Bitartrate 4 mg (/ Dextrose) 254 mls @ 0 mls/hr IV PRN PRN; Protocol PRN Reason: Hemodynamic Parameters Stop: 04/30/20 08:40 Last Admin: 03/31/20 13:14 Dose: 254 mls Documented by: Dopamine HCl/Dextrose (Dopamine 400 Mg/250 Ml D5w (Premix)) 400 mg in 250 mls @ 0 mls/hr IV PRN PRN; Protocol PRN Reason: Hemodynamic Parameters Stop: 04/30/20 12:16 Last Admin: 04/01/20 20:52 Dose: 250 mls Documented by: Pharmacy Consult (Pharmacy Consult) 1 mls @ 1 mls/hr XX DAILYPRN PRN; Protocol PRN Reason: Vancomycin dose by pharmacy Stop: 04/30/20 16:22 Insulin Glargine (Lantus) 10 units SQ BID [facility] Stop: 05/02/20 21:01 Last Admin: 04/02/20 20:42 Dose: 10 units Documented by: Insulin Human Regular (Novolin -R) 0 unit SQ ACHS [facility]; Protocol Stop: 04/28/20 16:46 Last Admin: 04/02/20 20:41 Dose: 13 unit Documented by: Mannitol (Mannitol 12.5 Gm/50 Ml Vial) 12.5 gm IV EVERY HD PRN PRN Reason: FOR BP SUPPORT AT HD Stop: 04/29/20 16:58 Midodrine (Proamatine) 10 mg PO TID [facility] Stop: 04/29/20 21:01 Last Admin: 04/02/20 20:43 Dose: Not Given Documented by: Ondansetron HCl (Zofran) 4 mg IV Q6HP PRN PRN Reason: NAUSEA / VOMITING Stop: 04/28/20 16:46 Last Admin: 03/30/20 15:48 Dose: 4 mg Documented by: Sodium Chloride (Normal Saline Flush) 10 ml IV BID [facility] Stop: 04/28/20 21:01 Last Admin: 04/02/20 20:40 Dose: 10 ml Documented by: Thiamine HCl (Vitamin B-1) 100 mg IVP DAILY [facility] Stop: 05/03/20 09:01 Tramadol HCl (Ultram) 50 mg PO TID PRN PRN Reason: Pain scale 5-7 (Moderate) Stop: 04/29/20 09:17 Last Admin: 03/31/20 22:01 Dose: 50 mg Documented by: Assessment/ Plan: Nephrology Feeling better. Dizziness with standing. Constipation. CPS stable without CP or SOB. Still on pressor therapy. No acute events overnight. Vitals, medications, blood work and imaging reviewed in the chart. General: Oriented x3, Cooperative HEENT: Atraumatic Neck: Supple, JVD distended Respiratory: Diminished Cardiovascular: Regular rate/rhythm, Edema Gastrointestinal: Soft and benign, Non-distended Musculoskeletal: No clubbing, No contractures Integumentary: No rashes, No cyanosis Neurological: Normal speech Blood work reviewed in the chart. Imagings Data: EXAM DESCRIPTION: RAD - Chest Single View - 03/30/2020 8:16 am CLINICAL HISTORY: R/O Pneumo. Chest pain. COMPARISON: Chest Single View dated 03/30/2020; Chest Single View dated 03/29/2020; Chest Single View dated 12/28/2018; Chest Single View dated 05/15/2018 FINDINGS: Portable technique limits examination quality. A large amount of right pleural fluid is seen. No pneumothorax is evident. Heart is moderately enlarged in size. No displaced fractures. IMPRESSION: No measurable pneumothorax seen. Conclusions/Impression: A/ ESRD on HD. Hyperkalemia HTN with CKD/ CHF complicated by hypotension of unclear etiology. Shock. Diastolic CHF, A/C. Pleural effusion. Respiratory failure, A/C. DM II with CKD. Anemia in CKD. JERALD/ Secondary HyperPTH. P/ Continue current POC and Medications. IVF bolus as needed. Continue Dopamine and Midodrine; titrate as needed. Next HD tomorrow. Surgery following chest tube. Bipap PRN. No NSAIDs. AM labs. Daily weight. Case reviewed with Dr. Barron. Greater than 30min patient care.
[2020-04-02] MEDS: DOPAMINE/D5W 400 MG/250 ML BAG IV PRN (22:28)
[2020-04-02] MEDS: DOCUSATE NA 100 MG CAP PO SCH (23:00)
[2020-04-02] MEDS ORDERED: LACTULOSE 20 GM/30 ML UCUP PO PRN (23:03)
[2020-04-03 05:54] LABS: Magnesium 2.4 mg/dL (1.8-2.4); Potassium 4.5 mmol/L (3.5-5.1)
[2020-04-03 05:57] LABS: Absolute Lymphocytes (CBC) 0.7 K/uL (0.7-4.9); Basophils % 0.5 % (0-1.3); Hematocrit 34.1 % (39.6-49.0); Lymphocytes % 5.1 % (15.3-44.8); MPV 8.6 fL (7.6-11.3); RBC Red Blood Cell Count 3.53 M/uL (4.33-5.43)
--- NOTE | 2020-04-03 07:39 | RAD REPORT ---
EXAM DESCRIPTION: RAD - Chest Single View - 04/03/2020 6:55 am CLINICAL HISTORY: chest tube / effusion COMPARISON: April 02 portable chest, April 01 CT chest TECHNIQUE: AP portable chest image was obtained 04/03/2020 6:55 am . FINDINGS: Lung volumes are low. Pleural effusion and atelectasis changes are present in the right ba se. Right base chest tube remains in place. No measurable pneumothorax on portable imaging. Anterior pneumothorax can be occult. Left lung field opacification is slightly increased probably the affects of more shallow inspiration. Cardiomediastinal silhouette is similar to comparison. IMPRESSION: No pneumothorax identifiable. No change in positioning of the right base chest tube. Right base atelectasis and pleural fluid findings similar to comparison.
[2020-04-03] MEDS ORDERED: LIDOCAINE 2% INJ, 20 mL 10 ML, NS 0.9% VIAL 40 ML TOP ONE ×2 (08:00)
[2020-04-03] MEDS: INSULIN -REGULAR HUMAN 50 UNIT/0.5 ML ML SQ SCH ×4 (08:28→20:42)
[2020-04-03] MEDS: DOCUSATE NA 100 MG CAP PO SCH ×2 (08:29→20:41)
[2020-04-03] MEDS: HEPARIN 5000 UNIT/ML 1 ML VIAL SQ SCH ×2 (08:29→20:41)
[2020-04-03] MEDS: CA ACETATE 667 MG CAP PO SCH ×3 (08:29→16:47)
[2020-04-03] MEDS: MIDODRINE HCL 5 MG TABLET PO SCH ×3 (08:29→20:41)
[2020-04-03] MEDS: INSULIN GLARGINE 100 UNITS/ML SQ SCH ×2 (08:30→20:42)
[2020-04-03] MEDS: THIAMINE 200 MG/2 ML INJ IVP SCH (08:31)
--- NOTE | 2020-04-03 11:14 | P.PN ---
Subjective Date of Service: 04/03/20 Primary Care Provider: Felicitas Herndon NP; Nephrology-Dr. Call Chief Complaint: Shock Subjective: Other (Patient improving. Patient to bedside on bed. Chest tube in place.) Physical Examination - Vital Signs Temperature: 98.1 F Blood Pressure: 91/55 Pulse: 79 Respirations: 20 Pulse Ox (%): 97 - Physical Exam General: Alert, Cooperative HEENT: Atraumatic Neck: Supple Respiratory: Clear to auscultation bilaterally Cardiovascular: Normal pulses, Regular rate/rhythm Gastrointestinal: Normal bowel sounds, No rebound, No guarding Neurological: Normal speech, Normal strength at 5/5 x4 extr, Normal tone, Normal affect - Studies Medications List Reviewed: Yes Assessment & Plan Discharge Plan: Home Plan to discharge in: 72 Hours Physician Review Additional Text: Impression: Shortness of breath secondary to acute on chronic right large pleural effusion with acute respiratory failure and noted hypercapnia Hypotension etiology unknown with history of hypertension suspect related to above End-stage renal disease on hemodialysis Diabetes mellitus type 2 insulin-dependent Atrial fibrillation on chronic anti coagulation therapy Chronic diastolic CHF Plan: Shortness of breath secondary to acute on chronic right large pleural effusion with acute respiratory failure and noted hypercapnia: Case discussed with surgery and pulmonology yesterday. CT shows no multi loculated effusion. Pulmonology plans to do pleurodesis. Will discuss with pulmonology today to seen when this will be done. Case also discuss with nephrology. No adrenal insufficiency noted. Cardiology reports normal ejection fraction but with underlying diastolic CHF. Still unclear why patient is hypotensive. Continue to wean off vasopressors. Patient still on vasopressor therapy. Patient also on midodrine Will adjust medication accordingly. Anticipate need for skilled placement in the future. Hypotension etiology unknown with history of hypertension suspect related to above: Continue to wean off vasopressor. Patient on midodrine End-stage renal disease on hemodialysis: Patient will receive dialysis after CT scan done Diabetes mellitus type 2 insulin-dependent: Will provide insulin sliding scale. Monitor Accu-Cheks. Will continue to adjust basal insulin. Atrial fibrillation on chronic anti coagulation therapy: Will discuss with cardiology and pulmonology on when this can be restarted Chronic diastolic CHF: This appears stable. Will monitor closely. Ejection fraction within normal range. Patient with diastolic dysfunction Time Spent Managing Pts Care (In Minutes): 55
--- NOTE | 2020-04-03 12:37 | PN ---
Date of Progress Note: 04/03/2020 Subjective: Patient was seen and examined at bedside. He is going to be started on dialysis. He re miesha on dopamine. Objective: Vital Signs: Showing temperature of 98.1, pulse rate of 79, respiratory rate of 20, and blood pressure of 91/55. General: He appears in no acute distress. HEENT: Atraumatic head. Lungs: Auscultation of the lungs revealed diminished breath sounds with a chest tube was noted. Extremities: Showed 2+ bilateral pitting edema. Current Medications: Include albumin with dialysis, dopamine drip, hydrocodone as needed. He is on midodrine 10 mg t.i.d. and insulin, calcium acetate with meals, and adrenal insufficiency testing is underway. Impression: 1.End-stage renal disease, on dialysis. 2.Recurrent pleural effusions status post thoracentesis and chest tube placement. The patient is be ing followed by Pulmonary and possible pleurodesis in the near future. This is all related to transu dative pleural effusion. Cardiology is also following the patient. The patient does not have any se lindsay systolic dysfunction; however, he does have diastolic dysfunction. For severe hypotension, jayla ent is on midodrine and dopamine, to be weaned off as tolerated. We will plan to ultrafilter as much as we can and, however, very limited because of hypotension. We will follow up closely and continue midodrine and monitor his hemoglobin and start him on Epogen as needed. VV/MODL Voice ID: [id number] Report ID: [id number]
[2020-04-03] MEDS: DOPAMINE/D5W 400 MG/250 ML BAG IV PRN (16:46)
--- NOTE | 2020-04-03 17:03 | P.PN ---
Subjective Date of Service: 04/03/20 Primary Care Provider: Felicitas Herndon NP; Nephrology-Dr. Call Chief Complaint: Shock Patient is clinically improving and weaned off the dopamine he has 350 cc draining per shift denies any chest pain he is very alert Review of Systems Unremarkable Physical Examination - Vital Signs Temperature: 99.2 F Blood Pressure: 102/61 Pulse: 78 Respirations: 28 Pulse Ox (%): 96 - Physical Exam General: Alert, In no apparent distress, Oriented x3 HEENT: Atraumatic Neck: Supple Respiratory: Clear to auscultation bilaterally, Diminished - Studies Medications List Reviewed: Yes Assessment & Plan - Problems (Diagnosis) (1) Pleural effusion Current Visit: Yes Status: Acute Plan: Patient is still less some drainage would plan to do iodine pleurodesis tomorrow possible removal of tube on Sunday (2) Shock Current Visit: Yes Status: Acute Plan: Condition is improving low-dose dopamine he has been weaned off no evidence of sepsis or adrenal insufficiency been no evidence of sepsis Physician Review Additional Text: Impression: Shortness of breath secondary to acute on chronic right large pleural effusion with acute respiratory failure and noted hypercapnia Hypotension etiology unknown with history of hypertension suspect related to above End-stage renal disease on hemodialysis Diabetes mellitus type 2 insulin-dependent Atrial fibrillation on chronic anti coagulation therapy Chronic diastolic CHF Plan: Shortness of breath secondary to acute on chronic right large pleural effusion with acute respiratory failure and noted hypercapnia: Case discussed with surgery and pulmonology yesterday. CT shows no multi loculated effusion. Pulmonology plans to do pleurodesis. Will discuss with pulmonology today to seen when this will be done. Case also discuss with nephrology. No adrenal insufficiency noted. Cardiology reports normal ejection fraction but with underlying diastolic CHF. Still unclear why patient is hypotensive. Continue to wean off vasopressors. Patient still on vasopressor therapy. Patient also on midodrine Will adjust medication accordingly. Anticipate need for skilled placement in the future. Hypotension etiology unknown with history of hypertension suspect related to above: Continue to wean off vasopressor. Patient on midodrine End-stage renal disease on hemodialysis: Patient will receive dialysis after CT scan done Diabetes mellitus type 2 insulin-dependent: Will provide insulin sliding scale. Monitor Accu-Cheks. Will continue to adjust basal insulin. Atrial fibrillation on chronic anti coagulation therapy: Will discuss with cardiology and pulmonology on when this can be restarted Chronic diastolic CHF: This appears stable. Will monitor closely. Ejection fraction within normal range. Patient with diastolic dysfunction
[2020-04-03] MEDS ORDERED: POVIDONE-IODINE 10 ML, NS 0.9% VIAL 40 ML TOP SCH ×2 (18:00)
[2020-04-04 05:10] LABS: Basophils % 0.6 % (0-1.3); Hematocrit 31.9 % (39.6-49.0); Lymphocytes % 8.9 % (15.3-44.8); MPV 7.9 fL (7.6-11.3); RBC Red Blood Cell Count 3.37 M/uL (4.33-5.43)
[2020-04-04 05:31] LABS: Magnesium 2.4 mg/dL (1.8-2.4); Potassium 4.7 mmol/L (3.5-5.1)
[2020-04-04] MEDS: INSULIN -REGULAR HUMAN 50 UNIT/0.5 ML ML SQ SCH ×4 (07:29→20:25)
[2020-04-04] MEDS: CA ACETATE 667 MG CAP PO SCH ×3 (07:59→17:00)
[2020-04-04] MEDS ORDERED: LIDOCAINE 2% INJ, 20 mL 10 ML, NS 0.9% VIAL 40 ML IJ ONE ×2 (08:00)
[2020-04-04] MEDS ORDERED: POVIDONE-IODINE 10 ML, NS 0.9% VIAL 40 ML TOP SCH ×4 (08:00)
[2020-04-04] MEDS: MIDODRINE HCL 5 MG TABLET PO SCH ×3 (08:33→20:24)
[2020-04-04] MEDS: INSULIN GLARGINE 100 UNITS/ML SQ SCH ×2 (08:34→20:25)
[2020-04-04] MEDS: THIAMINE 200 MG/2 ML INJ IVP SCH (08:35)
[2020-04-04] MEDS: HEPARIN 5000 UNIT/ML 1 ML VIAL SQ SCH ×2 (08:35→20:24)
[2020-04-04] MEDS: DOCUSATE NA 100 MG CAP PO SCH ×3 (08:35→21:00)
--- NOTE | 2020-04-04 10:43 | P.PN ---
Subjective Date of Service: 04/04/20 Primary Care Provider: Felicitas Herndon NP; Nephrology-Dr. Call Chief Complaint: Shock Subjective: Improving, Doing well, Other (Patient to bedside eating. Patient still on dopamine drip. Blood pressure stable.) Physical Examination - Vital Signs Temperature: 98 F Blood Pressure: 92/51 Pulse: 64 Respirations: 18 Pulse Ox (%): 100 - Physical Exam General: Alert, In no apparent distress, Oriented x3, Cooperative HEENT: Atraumatic Neck: Supple Respiratory: Crackles/rales (To the bases), Other (Chest tube in place) Cardiovascular: Normal pulses, Regular rate/rhythm Gastrointestinal: Normal bowel sounds, Soft and benign, Non-distended, No masses, No rebound, No guarding Musculoskeletal: No erythema, No tenderness, No warmth Integumentary: No tenderness/swelling, No erythema, No warmth, No cyanosis Neurological: Normal speech, Normal strength at 5/5 x4 extr, Normal tone, Normal affect - Studies Medications List Reviewed: Yes Assessment & Plan Discharge Plan: Home Plan to discharge in: 48 Hours Physician Review Additional Text: Impression: Shortness of breath secondary to acute on chronic right large pleural effusion with acute respiratory failure and noted hypercapnia status post chest tube placement Hypotension etiology unknown with history of hypertension suspect related to above End-stage renal disease on hemodialysis Diabetes mellitus type 2 insulin-dependent Atrial fibrillation on chronic anti coagulation therapy Chronic diastolic CHF Plan: Shortness of breath secondary to acute on chronic right large pleural effusion with acute respiratory failure and noted hypercapnia status post chest tube placement: Case discussed with surgery and pulmonology. Pulmonology plans for pleurodesis today. CT scan shows no multi loculated effusion. Blood pressure still low and currently on dopamine. Continue to wean off the dopamine. Patient on high dose Midodrine. No indication of infection. Cardiology reports normal ejection fraction but with possible underlying chronic diastolic CHF. Case also discuss with nephrology. Patient continues to get dialysis. Hopefully chest tube can be removed as early as tomorrow. Patient will need to be weaned off dopamine in order for the patient to be transferred to the floor. Anticipate improvement over the next 1-2 days. Patient will likely go home with home health verses skilled placement if physical therapy recommends. I will turn over the service to the hospitalist team tomorrow. I will go over the plan of care with him. Hypotension etiology unknown with history of hypertension suspect related to above: Continue to wean off vasopressor Dopamaine. His blood pressure medications including carvedilol, Cardura, and losartan currently on hold. Patient on midodrine End-stage renal disease on hemodialysis: Patient continues with dialysis. Continue with Nephrology recommendations. Diabetes mellitus type 2 insulin-dependent: Continue insulin sliding scale. Monitor Accu-Cheks. Will continue to adjust basal insulin. Patient currently on Lantus 10 units subcu twice daily. Atrial fibrillation on chronic anti coagulation therapy: Eliquis 2.5 mg 1 pill twice daily will need to be restarted once chest tube has been removed. Chronic diastolic CHF: This appears stable with fluid restriction. Will monitor closely off Lasix. Ejection fraction within normal range. Patient with diastolic dysfunction Time Spent Managing Pts Care (In Minutes): 55
--- NOTE | 2020-04-04 11:34 | RAD REPORT ---
EXAM DESCRIPTION: RAD - Chest Single View - 04/04/2020 6:22 am CLINICAL HISTORY: chest tube / effusion Chest pain. COMPARISON: Chest Single View dated 04/03/2020; Chest Single View dated 04/02/2020; Chest Single View da em 04/01/2020; Chest Single View dated 03/31/2020 FINDINGS: Portable technique limits examination quality. Small bore chest tube is again noted in the inferior right hemithorax, unchanged in position. No yesika urable right-sided pneumothorax seen. The lungs demonstrate interstitial prominence. The heart is mod erately enlarged.
--- NOTE | 2020-04-04 15:36 | P.PN ---
Subjective Date of Service: 04/04/20 Primary Care Provider: Felicitas Herndon NP; Nephrology-Dr. Call Chief Complaint: Pleural effusion Patient is doing well as off the dopamine status post pleurodesis today during less than 50 mL per hr Review of Systems General: Weakness Respiratory: Shortness of Breath Physical Examination - Vital Signs Temperature: 98.2 F Blood Pressure: 97/60 Pulse: 60 Respirations: 20 Pulse Ox (%): 98 - Physical Exam General: Alert, In no apparent distress, Oriented x3 Respiratory: Clear to auscultation bilaterally, Diminished (Diminished on the right side) Cardiovascular: No edema, Regular rate/rhythm - Studies Medications List Reviewed: Yes Assessment & Plan - Problems (Diagnosis) (1) Pleural effusion Current Visit: Yes Status: Acute Plan: Patient admitted with right-sided pleural effusion no evidence of sepsis chemistries on pleural fluid still unavailable status post pleurodesis today with iodine this see if it helps
--- NOTE | 2020-04-04 15:39 | P.OP ---
Date of Service: 04/04/20 (Pleurodesis on the right side) Findings and Operative Technique Patient is 74 years of age admitted with significant pleural effusion on the right side pleural fluid is recurrent in a chest tube placed as a reason for pleurodesis Narrative report after discussing with the patient iodine was injected together with lidocaine through the chest tube as per protocol patient tolerated the procedure well chest tube will be clamped for 2 hr then placed on suction once the output has decreased to plan to remove the tube
[2020-04-05] MEDS: HYDROCODONE/APAP 5/325 MG TAB PO PRN ×2 (01:15→20:21)
[2020-04-05 05:43] LABS: Absolute Lymphocytes (CBC) 1.2 K/uL (0.7-4.9); Basophils % 0.6 % (0-1.3); Hematocrit 33.2 % (39.6-49.0); Lymphocytes % 11.2 % (15.3-44.8); MPV 7.7 fL (7.6-11.3); RBC Red Blood Cell Count 3.48 M/uL (4.33-5.43)
[2020-04-05 05:57] LABS: Magnesium 2.6 mg/dL (1.8-2.4); Potassium 4.9 mmol/L (3.5-5.1)
[2020-04-05] MEDS: INSULIN -REGULAR HUMAN 50 UNIT/0.5 ML ML SQ SCH ×4 (07:30→20:19)
[2020-04-05] MEDS: THIAMINE 200 MG/2 ML INJ IVP SCH (08:08)
[2020-04-05] MEDS: MIDODRINE HCL 5 MG TABLET PO SCH ×3 (08:09→20:20)
[2020-04-05] MEDS: HEPARIN 5000 UNIT/ML 1 ML VIAL SQ SCH (08:09)
[2020-04-05] MEDS: INSULIN GLARGINE 100 UNITS/ML SQ SCH ×2 (08:09→20:20)
[2020-04-05] MEDS: CA ACETATE 667 MG CAP PO SCH ×3 (08:09→16:09)
[2020-04-05] MEDS: DOCUSATE NA 100 MG CAP PO SCH ×2 (08:10→21:00)
--- NOTE | 2020-04-05 08:30 | RAD REPORT ---
EXAM DESCRIPTION: RAD - Chest Single View - 04/05/2020 5:22 am CLINICAL HISTORY: Status post pleurodesis Chest pain. COMPARISON: Chest Single View dated 04/04/2020; Chest Single View dated 04/03/2020; Chest Single View da em 04/02/2020; Chest Single View dated 04/01/2020 FINDINGS: Portable technique limits examination quality. Right-sided chest tube is again noted, unchanged in position. No right-sided pneumothorax suspected. Mild increase in interstitial opacities and left pleural effusion since comparative study. The heart is moderately enlarged. IMPRESSION: Mild worsening in left lung aeration since comparative study.
--- NOTE | 2020-04-05 08:50 | P.PN ---
Subjective Date of Service: 04/05/20 Primary Care Provider: Felicitas Herndon NP; Nephrology-Dr. Call Chief Complaint: Pleural effusion Patient doing better, off pressors, had pleurodesis yesterday, output from chest tube down to 50cc, patient not short of breath. Physical Examination - Vital Signs Temperature: 97.4 F Blood Pressure: 91/51 Pulse: 69 Respirations: 18 Pulse Ox (%): 94 - Physical Exam General: Alert, In no apparent distress, Cooperative Respiratory: Normal air movement, Other (RIGHT chest tube in place, tidaling, no air leak, no infection, minimal serous discharge) - Studies Medications List Reviewed: Yes Assessment And Plan - Current Problems (Diagnosis) (1) Pleural effusion Current Visit: Yes Status: Acute Plan: - DC chest tube - follow up chest x ray in 4 hours - if fluid recurs can consider PleurX tunneled catheter Physician Review Additional Text: Impression: Shortness of breath secondary to acute on chronic right large pleural effusion with acute respiratory failure and noted hypercapnia status post chest tube placement Hypotension etiology unknown with history of hypertension suspect related to above End-stage renal disease on hemodialysis Diabetes mellitus type 2 insulin-dependent Atrial fibrillation on chronic anti coagulation therapy Chronic diastolic CHF Plan: Shortness of breath secondary to acute on chronic right large pleural effusion with acute respiratory failure and noted hypercapnia status post chest tube placement: Case discussed with surgery and pulmonology. Pulmonology plans for pleurodesis today. CT scan shows no multi loculated effusion. Blood pressure still low and currently on dopamine. Continue to wean off the dopamine. Patient on high dose Midodrine. No indication of infection. Cardiology reports normal ejection fraction but with possible underlying chronic diastolic CHF. Case also discuss with nephrology. Patient continues to get dialysis. Hopefully chest tube can be removed as early as tomorrow. Patient will need to be weaned off dopamine in order for the patient to be transferred to the floor. Anticipate improvement over the next 1-2 days. Patient will likely go home with home health verses skilled placement if physical therapy recommends. I will turn over the service to the hospitalist team tomorrow. I will go over the plan of care with him. Hypotension etiology unknown with history of hypertension suspect related to above: Continue to wean off vasopressor Dopamaine. His blood pressure medications including carvedilol, Cardura, and losartan currently on hold. Patient on midodrine End-stage renal disease on hemodialysis: Patient continues with dialysis. Continue with Nephrology recommendations. Diabetes mellitus type 2 insulin-dependent: Continue insulin sliding scale. Monitor Accu-Cheks. Will continue to adjust basal insulin. Patient currently on Lantus 10 units subcu twice daily. Atrial fibrillation on chronic anti coagulation therapy: Eliquis 2.5 mg 1 pill twice daily will need to be restarted once chest tube has been removed. Chronic diastolic CHF: This appears stable with fluid restriction. Will monitor closely off Lasix. Ejection fraction within normal range. Patient with diastolic dysfunction
--- NOTE | 2020-04-05 09:59 | P.PN ---
Subjective Date of Service: 04/05/20 Primary Care Provider: Felicitas Herndon NP; Nephrology-Dr. Call Chief Complaint: Pleural effusion Subjective: Tolerating diet, Improving (s/p pleurodessis yesterday 50cc pleural drainage since then), Doing well Physical Examination - Vital Signs Temperature: 97.4 F Blood Pressure: 91/51 Pulse: 69 Respirations: 18 Pulse Ox (%): 94 - Physical Exam General: Alert, In no apparent distress HEENT: Atraumatic, Normocephalic, PERRLA Respiratory: Diminished, Crackles/rales Cardiovascular: Normal pulses, Regular rate/rhythm, Normal S1 S2, Edema Gastrointestinal: Normal bowel sounds, Soft and benign, Non-distended Musculoskeletal: No clubbing, No swelling, No contractures Neurological: Normal speech, Normal strength at 5/5 x4 extr - Studies Laboratory Last Values WBC 10.7 K/uL (4.3-10.9) 03/29/20 11:30 RBC 3.57 M/uL (4.33-5.43) L 03/29/20 11:30 Hgb 11.3 g/dL (13.6-17.9) L 03/29/20 11:30 Hct 34.4 % (39.6-49.0) L 03/29/20 11:30 MCV 96.3 fL (80-100) 03/29/20 11:30 MCH 31.6 pg (27.0-35.0) 03/29/20 11:30 MCHC 32.8 g/dL (32.0-36.0) 03/29/20 11:30 RDW 14.7 % (12.1-15.2) 03/29/20 11:30 Plt Count 193 K/uL (152-406) 03/29/20 11:30 MPV 8.5 fL (7.6-11.3) 03/29/20 11:30 Neutrophils % 82.3 % (41.7-73.7) H 03/29/20 11:30 Lymphocytes % 11.3 % (15.3-44.8) L 03/29/20 11:30 Monocytes % 4.2 % (3.3-12.3) 03/29/20 11:30 Eosinophils % 1.0 % (0-4.4) 03/29/20 11:30 Basophils % 1.2 % (0-1.3) 03/29/20 11:30 Absolute Neutrophils 8.8 K/uL (1.8-8.0) H 03/29/20 11:30 Absolute Lymphocytes 1.2 K/uL (0.7-4.9) 03/29/20 11:30 Absolute Monocytes 0.5 K/uL (0.1-1.3) 03/29/20 11:30 Absolute Eosinophils 0.1 K/uL (0-0.5) 03/29/20 11:30 Absolute Basophils 0.1 K/uL (0-0.5) 03/29/20 11:30 Sodium 135 mmol/L (136-145) L 03/29/20 11:30 Potassium 4.7 mmol/L (3.5-5.1) 03/29/20 11:30 Chloride 99 mmol/L (98-107) 03/29/20 11:30 Carbon Dioxide 23 mmol/L (21-32) 03/29/20 11:30 BUN 93 mg/dL (7-18) H 03/29/20 11:30 Creatinine 9.58 mg/dL (0.55-1.3) H* 03/29/20 11:30 Estimated GFR 5 mL/min (=/>90) L 03/29/20 11:30 Glucose 191 mg/dL (74-106) H 03/29/20 11:30 Calcium 8.2 mg/dL (8.5-10.1) L 03/29/20 11:30 Magnesium 2.7 mg/dL (1.8-2.4) H 03/29/20 11:30 Total Bilirubin 1.3 mg/dL (0.2-1.0) H 03/29/20 11:30 Direct Bilirubin 0.2 mg/dL (0-0.2) 03/29/20 11:30 AST 9 U/L (15-37) L 03/29/20 11:30 ALT 10 U/L (12-78) L 03/29/20 11:30 Alkaline Phosphatase 50 U/L (45-117) 03/29/20 11:30 Rapid Troponin I 0.03 ng/mL (0.0-0.045) 03/29/20 11:30 NT-Pro-B Natriuret Pep [id number] pg/mL (<125) H 03/29/20 11:30 Serum Total Protein 7.1 g/dL (6.4-8.2) 03/29/20 11:30 Albumin 2.9 g/dL (3.4-5.0) L 03/29/20 11:30 Globulin 4.2 g/dL (2.3-3.5) H 03/29/20 11:30 Albumin/Globulin Ratio 0.7 (1.1-1.8) L 03/29/20 11:30 Medications List Reviewed: Yes Assessment And Plan - Current Problems (Diagnosis) (1) Pleural effusion Current Visit: Yes Status: Acute (2) Shock Current Visit: Yes Status: Resolved (3) Acute exacerbation of CHF (congestive heart failure) Onset Date: 10/01/17 Current Visit: No Status: Acute Qualifiers: (4) Atrial flutter Current Visit: No Status: Acute (5) CHF exacerbation Onset Date: 03/08/15 Current Visit: No Status: Acute (6) Congestive heart failure (CHF) Onset Date: 11/13/14 Current Visit: No Status: Acute (7) Dyspnea Onset Date: 11/13/14 Current Visit: No Status: Acute (8) ESRD (end stage renal disease) Onset Date: 05/16/18 Current Visit: No Status: Acute (9) ESRD (end stage renal disease) on dialysis Onset Date: 10/01/17 Current Visit: No Status: Acute (10) Pleural effusion Current Visit: No Status: Acute (11) Pleural effusion Onset Date: 10/01/17 Current Visit: No Status: Acute (12) Respiratory distress Onset Date: 10/01/17 Current Visit: No Status: Acute (13) SOB (shortness of breath) Onset Date: 05/16/18 Current Visit: No Status: Acute (14) Diabetes Onset Date: 03/08/15 Current Visit: No Status: Chronic (15) HTN (hypertension) Onset Date: 03/08/15 Current Visit: No Status: Chronic Qualifiers: (16) Hepatitis C Current Visit: No Status: Chronic Qualifiers: (17) Renal failure Current Visit: No Status: Chronic Physician Review Additional Text: Impression: Shortness of breath secondary to acute on chronic right large pleural effusion with acute respiratory failure and noted hypercapnia status post chest tube placement Hypotension etiology unknown with history of hypertension suspect related to above End-stage renal disease on hemodialysis Diabetes mellitus type 2 insulin-dependent Atrial fibrillation on chronic anti coagulation therapy Chronic diastolic CHF Plan: Shortness of breath secondary to acute on chronic right large pleural effusion with acute respiratory failure and noted hypercapnia status post chest tube placement: Case discussed with surgery and pulmonology. -s/p pleurodesis 04/04/20 - Pleural drain removed today 04/05 -still low BP , c/w midodrine , off dopmaine gtt - will need gradual UF with dialysis to achieve dry volume status today. -No indication of infection. Cardiology reports normal ejection fraction but with possible underlying chronic diastolic CHF. -follow PT -will transfer to floor if stable later today Hypotension etiology unknown with history of hypertension suspect related to above: unclear etiology -off IV vasopressor Dopamaine. -c/w to hold carvedilol, Cardura, and losartan -on midodrine End-stage renal disease on hemodialysis: Patient continues with dialysis. need large UF with slow profile approach -follow renal team . Diabetes mellitus type 2 insulin-dependent: Continue insulin sliding scale. Monitor Accu-Cheks. Will continue to adjust basal insulin. Patient currently on Lantus 10 units subcu twice daily. Atrial fibrillation on chronic anti coagulation therapy: will resume Eliquis 2.5 mg 1 pill twice daily in am Chronic diastolic CHF: with diastolic dysfunction, c/w lasix and dialysis ultrafiltration Dispo - Transfer to floor later today
[2020-04-05] MEDS: TRAMADOL HCL 50 MG TAB PO PRN ×2 (13:32→22:14)
--- NOTE | 2020-04-05 13:33 | RAD REPORT ---
EXAM DESCRIPTION: RADChest Single View04/05/2020 1:05 pm CLINICAL HISTORY: Shortness of breath COMPARISON: April 05 FINDINGS: No change in the right pleural effusion and right atelectasis A pneumothorax is not seen. Right chest tube remains in place Left lung opacities have mostly resolved
[2020-04-05 13:59] LABS: Urine Appearance TURBID; Urine Bilirubin NEGATIVE (NEG); Urine Blood 2+ (NEG); Urine Color DK YELLOW; Urine Glucose 1+ (NEG); Urine Protein 2+ (NEG); Urine Urobilinogen 0.2 mg/dL (0.2-1.0); Urine pH 5.5 (5.0-7.0)
[2020-04-05 14:10] LABS: Urine Bacteria 20-50 /HPF (NONE SEEN)
[2020-04-05 14:11] LABS: Urine Amorphous Sediment 1+ /HPF (NONE SEEN); Urine Culture Reflex Order REFLEXED; Urine Mucus 1+ /HPF (NONE SEEN)
[2020-04-05] MEDS: ALBUMIN HUMAN 25% 50 ML IV SCH ×2 (15:00→15:30)
[2020-04-05] MEDS ORDERED: HYDROCORTISONE SUC 100 MG INJ IV ONE (15:29)
[2020-04-05] MEDS ORDERED: PHENAZOPYRIDINE 100MG TAB PO ONE (15:29)
[2020-04-05] MEDS: CEFTRIAXONE/SWI 1gm 1 GM/10 ML SYR IV SCH (16:07)
[2020-04-05] MEDS ORDERED: WATER FOR INJ,STERILE 10 ML ONE (16:11)
[2020-04-05] MEDS: FUROSEMIDE 40 MG TABLET PO SCH (16:14)
--- NOTE | 2020-04-05 20:19 | P.PN ---
Date of Service: 04/05/20 Vital Signs Temp Pulse Resp BP Pulse Ox 98.0 F 77 21 H 110/80 96 04/05/20 16:00 04/05/20 18:00 04/05/20 18:00 04/05/20 18:00 04/05/20 18:00 Medications Acetaminophen (Tylenol -Extra Strength) 500 mg PO Q4HP PRN PRN Reason: TEMP > 101' F Stop: 04/28/20 16:46 Hydrocodone Bitart/Acetaminophen ([place] 5/325) 1 tab PO TID PRN PRN Reason: Pain scale 8-10 (Severe) Stop: 04/29/20 09:17 Last Admin: 04/05/20 01:15 Dose: 1 tab Documented by: Apixaban (Eliquis) 2.5 mg PO BID [facility] Stop: 05/05/20 21:01 Calcium Acetate (Phoslo) 667 mg PO TIDWM [facility] Stop: 04/30/20 08:01 Last Admin: 04/05/20 16:09 Dose: 667 mg Documented by: Dextrose (Dextrose 50% Syringe/Vial) 12.5 gm IV PRN PRN; Protocol PRN Reason: HYPOGLYCEMIA Stop: 05/01/20 13:28 Docusate Sodium (Colace Cap) 100 mg PO BID [facility] Stop: 05/02/20 23:01 Last Admin: 04/05/20 08:10 Dose: Not Given Documented by: Furosemide (Lasix) 40 mg PO BIDL [facility] Stop: 05/05/20 17:01 Last Admin: 04/05/20 16:14 Dose: Not Given Documented by: Glucagon (Glucagen) 1 mg IM 1X PRN; Protocol PRN Reason: HYPOGLYCEMIA Stop: 05/01/20 13:28 Heparin Sodium (Porcine) (Heparin 1,000 Units/Ml) 2,000 unit IV EVERY HD [facility] Stop: 04/06/20 15:01 Last Admin: 04/05/20 14:15 Dose: 2,000 unit Documented by: Albumin Human (Albumin 25%) 50 mls @ 100 mls/hr IV EVERY HD [facility] Stop: 04/29/20 17:01 Last Admin: 04/05/20 15:30 Dose: 50 mls Documented by: Pharmacy Consult (Pharmacy Consult) 1 mls @ 1 mls/hr XX DAILYPRN PRN; Protocol PRN Reason: Vancomycin dose by pharmacy Stop: 04/30/20 16:22 Ceftriaxone Sodium/Sodium Chloride (Rocephin 1 Gm/10 Ml Swi Ivp) 1 gm in 10 mls @ 600 mls/hr IV DAILY [facility]; Protocol Stop: 05/05/20 16:01 Last Admin: 04/05/20 16:07 Dose: 10 mls Documented by: Insulin Glargine (Lantus) 10 units SQ BID [facility] Stop: 05/02/20 21:01 Last Admin: 04/05/20 08:09 Dose: 10 units Documented by: Insulin Human Regular (Novolin -R) 0 unit SQ ACHS [facility]; Protocol Stop: 04/28/20 16:46 Last Admin: 04/05/20 16:15 Dose: Not Given Documented by: Lactulose (Cephulac) 20 gm PO Q12H PRN PRN Reason: CONSTIPATION Stop: 05/02/20 23:04 Mannitol (Mannitol 12.5 Gm/50 Ml Vial) 12.5 gm IV EVERY HD PRN PRN Reason: FOR BP SUPPORT AT HD Stop: 04/29/20 16:58 Midodrine (Proamatine) 10 mg PO TID [facility] Stop: 04/29/20 21:01 Last Admin: 04/05/20 12:59 Dose: 10 mg Documented by: Ondansetron HCl (Zofran) 4 mg IV Q6HP PRN PRN Reason: NAUSEA / VOMITING Stop: 04/28/20 16:46 Last Admin: 03/30/20 15:48 Dose: 4 mg Documented by: Sodium Chloride (Normal Saline Flush) 10 ml IV BID [facility] Stop: 04/28/20 21:01 Last Admin: 04/05/20 08:10 Dose: 10 ml Documented by: Thiamine HCl (Vitamin B-1) 100 mg IVP DAILY [facility] Stop: 05/03/20 09:01 Last Admin: 04/05/20 08:08 Dose: 100 mg Documented by: Tramadol HCl (Ultram) 50 mg PO TID PRN PRN Reason: Pain scale 5-7 (Moderate) Stop: 04/29/20 09:17 Last Admin: 04/05/20 13:32 Dose: 50 mg Documented by: Assessment/ Plan: Nephrology Feeling better. Good BM. CPS stable without CP or SOB. No acute events overnight. Vitals, medications, blood work and imaging reviewed in the chart. General: Oriented x3, Cooperative HEENT: Atraumatic Neck: Supple, JVD distended Respiratory: Diminished Cardiovascular: Regular rate/rhythm, Edema Gastrointestinal: Soft and benign, Non-distended Musculoskeletal: No clubbing, No contractures Integumentary: No rashes, No cyanosis Neurological: Normal speech Blood work reviewed in the chart. Imagings Data: EXAM DESCRIPTION: RAD - Chest Single View - 03/30/2020 8:16 am CLINICAL HISTORY: R/O Pneumo. Chest pain. COMPARISON: Chest Single View dated 03/30/2020; Chest Single View dated 03/29/2020; Chest Single View dated 12/28/2018; Chest Single View dated 05/15/2018 FINDINGS: Portable technique limits examination quality. A large amount of right pleural fluid is seen. No pneumothorax is evident. Heart is moderately enlarged in size. No displaced fractures. IMPRESSION: No measurable pneumothorax seen. Conclusions/Impression: A/ ESRD on HD. Hyperkalemia HTN with CKD/ CHF complicated by hypotension of unclear etiology. Shock. Diastolic CHF, A/C. Pleural effusion. Respiratory failure, A/C. DM II with CKD. Anemia in CKD. JERALD/ Secondary HyperPTH. P/ Continue current POC and Medications. Seen and examined on HD today. UF still difficult due to hypotension. IV Albumin given. Next HD tomorrow with UF. Status chest tube removal. Bipap PRN. No NSAIDs. AM labs. Daily weight. Greater than 30min patient care.
[2020-04-05] MEDS: APIXABAN 2.5 MG TABLET PO SCH (20:20)
[2020-04-06 05:25] LABS: Absolute Lymphocytes (CBC) 0.6 K/uL (0.7-4.9); Basophils % 0.1 % (0-1.3); Hematocrit 32.1 % (39.6-49.0); Lymphocytes % 6.8 % (15.3-44.8); MPV 7.8 fL (7.6-11.3); RBC Red Blood Cell Count 3.39 M/uL (4.33-5.43)
[2020-04-06 05:53] LABS: Albumin 2.8 g/dL (3.4-5.0); Bilirubin Total 0.6 mg/dL (0.2-1.0); Magnesium 2.4 mg/dL (1.8-2.4); Potassium 4.3 mmol/L (3.5-5.1); Protein, Total 6.2 g/dL (6.4-8.2)
[2020-04-06 07:21] LABS: Blood Morphology Comment NOT SEEN (NOT SEEN); Platelet Estimate ADEQ
[2020-04-06] MEDS: INSULIN -REGULAR HUMAN 50 UNIT/0.5 ML ML SQ SCH ×4 (08:06→20:27)
[2020-04-06] MEDS: APIXABAN 2.5 MG TABLET PO SCH ×2 (08:06→20:26)
[2020-04-06] MEDS: CA ACETATE 667 MG CAP PO SCH ×3 (08:06→17:03)
[2020-04-06] MEDS: MIDODRINE HCL 5 MG TABLET PO SCH ×3 (08:06→20:26)
[2020-04-06] MEDS: FUROSEMIDE 40 MG TABLET PO SCH ×2 (08:06→17:04)
[2020-04-06] MEDS: DOCUSATE NA 100 MG CAP PO SCH ×2 (08:07→20:26)
[2020-04-06] MEDS: CEFTRIAXONE/SWI 1gm 1 GM/10 ML SYR IV SCH (08:07)
[2020-04-06] MEDS: THIAMINE 200 MG/2 ML INJ IVP SCH (08:07)
[2020-04-06] MEDS: INSULIN GLARGINE 100 UNITS/ML SQ SCH ×2 (08:07→20:27)
[2020-04-06] MEDS: ONDANSETRON 4 MG/2 ML VIAL IV PRN ×2 (09:23→20:26)
[2020-04-06] MEDS: ALBUMIN HUMAN 25% 50 ML IV SCH ×2 (09:25→09:50)
[2020-04-06] MEDS: TRAMADOL HCL 50 MG TAB PO PRN (09:37)
--- NOTE | 2020-04-06 12:50 | P.PN ---
Subjective Date of Service: 04/06/20 Primary Care Provider: Felicitas Herndon NP; Nephrology-Dr. Call Chief Complaint: Pleural effusion Patient's chest tube was removed yesterday is feeling a little nauseated has some chest discomfort no evidence of urinary tract infection Review of Systems General: Weakness Respiratory: Shortness of Breath Cardiovascular: Chest Pain Physical Examination - Vital Signs Temperature: 97.3 F Blood Pressure: 113/61 Pulse: 60 Respirations: 18 Pulse Ox (%): 98 - Physical Exam General: Alert, Oriented x3, Mild distress Respiratory: Clear to auscultation bilaterally, Diminished (Diminished on the right side) Cardiovascular: No edema, Regular rate/rhythm - Studies Medications List Reviewed: Yes Assessment & Plan - Problems (Diagnosis) (1) Pleural effusion Current Visit: Yes Status: Acute Plan: Patient is status post pleurodesis chest x-ray shows diminished lung volumes on the right side of dopamine blood pressure has improved check room air pulse ox physical therapy plan for discharge
--- NOTE | 2020-04-06 14:58 | PN ---
Date of Progress Note: 04/06/2020 Subjective: Patient seen and examined. Chart reviewed and case discussed with RN and Dr. Hansen as well as Dr. Call. Patient seems to be doing okay. Chest tube, which is removed yesterday. Curr ently still in the ICU. Medications: List reviewed. Code Status: Full. Physical Examination: Vital Signs: Temperature 97.3, heart rate 60, blood pressure 113/61, respirations 20, O2 of 98% on 2 L via nasal cannula. General: Awake, alert, oriented x3. Elderly male, in some mild distress, ill-appearing. CV: S1, S2. Peripheral pulses present. Irregularly irregular. Respiratory: Diminished breath sounds. No wheezing or stridor. No use of accessory muscles. Gastrointestinal: Abdomen is soft, nontender, nondistended. Positive bowel sounds. Extremities: No clubbing, cyanosis. The patient has trace pedal edema. Neurologic: Cranial nerves 2 through 12 intact grossly. No focal neurological deficits. Speech is normal. Laboratory Data: Sodium 133, potassium 4.3, chloride 97, CO2 of 25, BUN 51, creatinine 5.04, glucose 200, calcium 8.2, albumin 2.8. WBC 9.3, H and H 10.4 and 32.1, platelets 171. Blood cultures, no g rowth to date. Final culture is pending. AFB smear pending. Urine culture, no growth. Assessment: 74-year-old male with, 1.Shortness of breath, secondary to pleural effusion. 2.Ebxza-cy-msbhorj right pleural effusion, status post chest tube placement, now removed. Appreciat e Dr. Hansen and Dr. Robert's input. 3.Acute respiratory failure with hypercapnia, improving secondary to pleural effusion, currently on supplemental oxygen. 4.Acute hypotension, unknown etiology. Patient now off dopamine drip. We will continue with midodr ine. 5.End-stage renal disease, on hemodialysis. We will continue dialysis. Appreciate Dr. Call's in put, may need ultrafiltration. 6.Diabetes mellitus type 2, insulin dependent with end-stage renal disease. We will continue with A ccu-Cheks and monitor blood glucose levels. Continue sliding scale insulin. 7.Atrial fibrillation, on Eliquis, renally dosed. 8.Chronic diastolic congestive heart failure. Continue with Lasix, dialysis. Monitor I's and O's, free fluid restriction. 9.History of hepatitis C. 10.Deep vein thrombosis prophylaxis. Patient is on Eliquis. 11.Acute cystitis with hematuria. We will follow up on urine culture, so far no growth. Patient arreaga s been started on Rocephin. Plan: Continue to monitor in the ICU setting, may step down if okay with Pulmonology. Anticipate di alysis today. /TAMARA Voice ID: [id number] Report ID: [id number]
[2020-04-06] MEDS: HYDROCORTISONE SUC 100 MG INJ IV SCH (20:26)
--- NOTE | 2020-04-06 20:48 | P.PN ---
Date of Service: 04/06/20 Vital Signs Temp Pulse Resp BP Pulse Ox 97 F 69 18 125/71 96 04/06/20 16:00 04/06/20 17:04 04/06/20 16:00 04/06/20 17:04 04/06/20 16:00 Medications Acetaminophen (Tylenol -Extra Strength) 500 mg PO Q4HP PRN PRN Reason: TEMP > 101' F Stop: 04/28/20 16:46 Hydrocodone Bitart/Acetaminophen ([place] 5/325) 1 tab PO TID PRN PRN Reason: Pain scale 8-10 (Severe) Stop: 04/29/20 09:17 Last Admin: 04/05/20 20:21 Dose: 1 tab Documented by: Apixaban (Eliquis) 2.5 mg PO BID [facility] Stop: 05/05/20 21:01 Last Admin: 04/06/20 20:26 Dose: 2.5 mg Documented by: Calcium Acetate (Phoslo) 667 mg PO TIDWM [facility] Stop: 04/30/20 08:01 Last Admin: 04/06/20 17:03 Dose: 667 mg Documented by: Dextrose (Dextrose 50% Syringe/Vial) 12.5 gm IV PRN PRN; Protocol PRN Reason: HYPOGLYCEMIA Stop: 05/01/20 13:28 Docusate Sodium (Colace Cap) 100 mg PO BID [facility] Stop: 05/02/20 23:01 Last Admin: 04/06/20 20:26 Dose: 100 mg Documented by: Furosemide (Lasix) 40 mg PO BIDL [facility] Stop: 05/05/20 17:01 Last Admin: 04/06/20 17:04 Dose: 40 mg Documented by: Glucagon (Glucagen) 1 mg IM 1X PRN; Protocol PRN Reason: HYPOGLYCEMIA Stop: 05/01/20 13:28 Hydrocortisone Sodium Succinate (Solu-Cortef) 50 mg IV Q12HR [facility] Stop: 05/06/20 21:01 Last Admin: 04/06/20 20:26 Dose: 50 mg Documented by: Albumin Human (Albumin 25%) 50 mls @ 100 mls/hr IV EVERY HD [facility] Stop: 04/29/20 17:01 Last Admin: 04/06/20 09:50 Dose: 50 mls Documented by: Pharmacy Consult (Pharmacy Consult) 1 mls @ 1 mls/hr XX DAILYPRN PRN; Protocol PRN Reason: Vancomycin dose by pharmacy Stop: 04/30/20 16:22 Ceftriaxone Sodium/Sodium Chloride (Rocephin 1 Gm/10 Ml Swi Ivp) 1 gm in 10 mls @ 600 mls/hr IVP DAILY [facility]; Protocol Stop: 05/05/20 16:01 Insulin Glargine (Lantus) 10 units SQ BID [facility] Stop: 05/02/20 21:01 Last Admin: 04/06/20 20:27 Dose: 10 units Documented by: Insulin Human Regular (Novolin -R) 0 unit SQ ACHS [facility]; Protocol Stop: 04/28/20 16:46 Last Admin: 04/06/20 20:27 Dose: 9 unit Documented by: Lactulose (Cephulac) 20 gm PO Q12H PRN PRN Reason: CONSTIPATION Stop: 05/02/20 23:04 Mannitol (Mannitol 12.5 Gm/50 Ml Vial) 12.5 gm IV EVERY HD PRN PRN Reason: FOR BP SUPPORT AT HD Stop: 04/29/20 16:58 Midodrine (Proamatine) 10 mg PO TID [facility] Stop: 04/29/20 21:01 Last Admin: 04/06/20 20:26 Dose: 10 mg Documented by: Ondansetron HCl (Zofran) 4 mg IV Q6HP PRN PRN Reason: NAUSEA / VOMITING Stop: 04/28/20 16:46 Last Admin: 04/06/20 20:26 Dose: 4 mg Documented by: Sodium Chloride (Normal Saline Flush) 10 ml IV BID [facility] Stop: 04/28/20 21:01 Last Admin: 04/06/20 20:27 Dose: 10 ml Documented by: Tramadol HCl (Ultram) 50 mg PO TID PRN PRN Reason: Pain scale 5-7 (Moderate) Stop: 04/29/20 09:17 Last Admin: 04/06/20 09:37 Dose: 50 mg Documented by: Assessment/ Plan: Nephrology Feeling better. CPS stable without CP or SOB. No acute events overnight. Vitals, medications, blood work and imaging reviewed in the chart. General: Oriented x3, Cooperative HEENT: Atraumatic Neck: Supple, JVD distended Respiratory: Diminished Cardiovascular: Regular rate/rhythm, Edema Gastrointestinal: Soft and benign, Non-distended Musculoskeletal: No clubbing, No contractures Integumentary: No rashes, No cyanosis Neurological: Normal speech Blood work reviewed in the chart. Imagings Data: EXAM DESCRIPTION: RAD - Chest Single View - 03/30/2020 8:16 am CLINICAL HISTORY: R/O Pneumo. Chest pain. COMPARISON: Chest Single View dated 03/30/2020; Chest Single View dated 03/29/2020; Chest Single View dated 12/28/2018; Chest Single View dated 05/15/2018 FINDINGS: Portable technique limits examination quality. A large amount of right pleural fluid is seen. No pneumothorax is evident. Heart is moderately enlarged in size. No displaced fractures. IMPRESSION: No measurable pneumothorax seen. Conclusions/Impression: A/ ESRD on HD. Hyperkalemia HTN with CKD/ CHF complicated by hypotension of unclear etiology. Shock. Diastolic CHF, A/C. Pleural effusion. Respiratory failure, A/C. DM II with CKD. Anemia in CKD. JERALD/ Secondary HyperPTH. P/ Continue current POC and Medications. Seen and examined on HD today. UF as tolerated. Next HD tomorrow. Bipap PRN. No NSAIDs. AM labs. Daily weight.
[2020-04-07] MEDS ORDERED: TRAZODONE 50 MG TABLET PO ONE (00:37)
[2020-04-07 04:36] LABS: Absolute Lymphocytes (CBC) 0.6 K/uL (0.7-4.9); Basophils % 0.2 % (0-1.3); Hematocrit 33.6 % (39.6-49.0); Lymphocytes % 5.1 % (15.3-44.8); MPV 8.2 fL (7.6-11.3); RBC Red Blood Cell Count 3.53 M/uL (4.33-5.43)
[2020-04-07 04:53] LABS: Albumin 3.1 g/dL (3.4-5.0); Bilirubin Total 0.5 mg/dL (0.2-1.0); Protein, Total 6.6 g/dL (6.4-8.2)
[2020-04-07 05:01] VITALS: BMI 28.6
[2020-04-07] MEDS: CEFTRIAXONE/SWI 1gm 1 GM/10 ML SYR IVP SCH (08:22)
[2020-04-07] MEDS: CA ACETATE 667 MG CAP PO SCH ×3 (08:23→16:25)
[2020-04-07] MEDS: FUROSEMIDE 40 MG TABLET PO SCH ×2 (08:23→16:24)
[2020-04-07] MEDS: APIXABAN 2.5 MG TABLET PO SCH ×2 (08:23→21:56)
[2020-04-07] MEDS: INSULIN -REGULAR HUMAN 50 UNIT/0.5 ML ML SQ SCH ×4 (08:24→21:00)
[2020-04-07] MEDS: DOCUSATE NA 100 MG CAP PO SCH ×2 (08:24→21:55)
[2020-04-07] MEDS: MIDODRINE HCL 5 MG TABLET PO SCH ×4 (08:24→21:55)
[2020-04-07] MEDS: HYDROCORTISONE SUC 100 MG INJ IV SCH ×2 (08:25→21:56)
[2020-04-07] MEDS: INSULIN GLARGINE 100 UNITS/ML SQ SCH ×2 (08:25→21:57)
[2020-04-07] MEDS: ALBUMIN HUMAN 25% 50 ML IV SCH ×2 (17:20→17:40)
[2020-04-07] MEDS: TRAMADOL HCL 50 MG TAB PO PRN (17:46)
--- NOTE | 2020-04-07 19:04 | PN ---
Date of Progress Note: 04/07/2020 Subjective: Patient was seen and examined at bedside. He is doing okay. He wants to go home. Objective: Vital Signs: Have been reviewed. Blood pressure seems to be improving to the 120s range . General: He appears in no acute distress. HEENT: Shows atraumatic head. Lungs: Clear to auscultation with diminished breath sounds at bases. Abdomen: Soft and nontender. Extremities: Show no evidence of edema. Laboratory Data: Has been reviewed in detail. Current Medications: Have been reviewed. Impression: 1.End-stage renal disease, on dialysis. 2.Volume overload with pleural effusion. 3.Atrial fibrillation, on Eliquis. 4.Hypotension, on hydrocortisone and midodrine 10 mg 3 times a day. 5.Pleural effusion, improved after thoracentesis. 6.Type 2 diabetes. 7.Anemia secondary to chronic kidney disease. Plan: Patient is agreeable for dialysis. We will plan for dialysis today and try to get another 1-2 L off and he can be discharged home after that. Patient is overall doing okay. Ultrafiltration is improving his volume status. Continue to monitor closely for ultrafiltration and volume status. We will follow up and is okay to be discharged. Discussed with Dnaiel Villalobos. VV/MODL Voice ID: [id number] Report ID: [id number]
--- NOTE | 2020-04-07 21:40 | DS ---
Consultants: Dr. Call with Nephrology, Dr. Parker with Cardiology, Dr. Hansen with General Surg bjorn, Dr. Robert with Pulmonology. Procedures: On 03/30/[address] Hansen, placement of right thoracostomy tube. 04/04/2020, iodine injection and pleurodesis by Dr. Robert. Admitting Diagnoses: 1.Hypertensive shock. 2.Shortness of breath. 3.Acute on chronic right large pleural effusion. 4.End-stage renal disease, on hemodialysis. 5.Diabetes mellitus type 2, insulin dependent with end-stage renal disease and hyperglycemia. 6.Atrial fibrillation on Eliquis, chronic, permanent. 7.Chronic diastolic congestive heart failure. 8.Essential hypertension. Discharge Diagnoses: 1.Hypertensive shock, resolved. 2.Shortness of breath. 3.Acute on chronic right pleural effusion status post chest tube placement and pleurodesis. 4.Acute respiratory failure with hypercapnia secondary to above. 5.End-stage renal disease, on hemodialysis. 6.Diabetes mellitus type 2, insulin dependent with end-stage renal disease and hyperglycemia. 7.Atrial fibrillation, chronic, permanent. 8.Chronic diastolic congestive heart failure. 9.History of hepatitis C. 10.Acute cystitis with hematuria. Culture shows no growth. Hospital Course: Patient is a 74-year-old male with end-stage renal disease, on hemodialysis; atrial fibrillation on Eliquis; diabetes insulin requiring; hypertension, comes in with shortness of breath . Patient was found to have large pleural effusion. This was acute on chronic. His white count was 10.7. Patient's blood pressure was on the low side. He did not respond to IV fluid boluses, had to be placed on dopamine drip and placed in the ICU. Patient required thoracostomy tube for drainage o f the pleural effusion. Imaging studies were also obtained as well as CT scan of the chest which did show very small pneumothorax after the placement and showed bilateral pleural effusions without any loculation. This was performed by Dr. Hansen. Patient had improvement in his lung function. Blood cultures did not show any growth. Fungal cultures and AFB smears are still pending. The body fluid from the chest also did not show any growth. Patient also had abnormal urine and was started on Bob ephin. However, his urine cultures did not show any growth. Patient's white blood cell count remain ed stable. He was then able to be weaned off dopamine. Chest tube was removed. He did have hyperca pnia. His dialysis was continued. Dr. Call managing his dialysis. Patient did have elevated tro ponin level as well and was seen by Dr. Parker. His cytology from the pleural fluid did not show an y malignancy. Echocardiogram was done, which showed an EF of 71%, diastolic dysfunction, and decreas ed left ventricular compliance. Patient's blood pressure medications had to be held due to his hypot ension. He was then placed on midodrine. He was also started on Solu-Cortef for possible adrenal in sufficiency. Cardiology did not feel that this was acute coronary syndrome. He plan to do a heart c atheterization as an outpatient. Patient had a prolonged course in the hospital, however, did improv e. Patient was then stable enough to be moved out of the ICU. He was weaned off oxygen. Patient re mained in atrial fibrillation. His anticoagulation was continued. Dr. Robert with Pulmonology was also involved in the patient's care. There was no sign of infection in the lung, therefore he will not need any antibiotics going home. His urine culture as mentioned previously did not show any grow th. Patient was then cleared for discharge from virtualization consultant's standpoint and was discharged home in a stable condition. Patient was seen by Physical therapy evaluated and was able to ambulate well and PT recommended home health with physical therapy. SNF placement was presented to the patient. He de clined snf facility placement. He understand that he has risk of falls including and mor bidity related to that including hip fractures, brain bleed, or even possibly as he is on blood thinners. He understands the risks, he would rather go home. He is alert, oriented x3. He underst ands the risks versus benefits. He has had previous bad experiences in rehab facilities. Patient wa s then discharged home once in a stable condition. Activity: Fall precautions, ambulate with assist. Diet: Renal, free fluid restriction. Followup: Follow up with primary care physician in 2-3 days. Follow up with customer sales consultant, Dr. Misty brasher in 2 weeks. Follow up with workforce development program director, Dr. Parker in 2 weeks. Follow up with sap mobility architect, Daniel Robert in 2 weeks. Return to ER for worsening condition. Medications: As per medication reconciliation list. For now, patient's Coreg, losartan, doxazosin w ill be discontinued due to his hypotension. Patient is requiring midodrine and steroids to keep up h is blood pressure and this can be monitored by his primary care physician and specialists and can be restarted once his blood pressure is improved. Physical Examination: General: Awake, alert, oriented x3. Elderly male, not in any acute distress. CV: S1, S2, irregularly irregular. Respiratory: Slightly diminished breath sounds on the right otherwise moving air well bilaterally, a pices. Gastrointestinal: Abdomen is soft, nontender, nondistended. Positive bowel sounds. Extremities: No clubbing or cyanosis. Patient has edema in bilateral lower extremities. Skin: Chronic venous stasis changes. Neurologic: Nonfocal. Total time spent discharging patient was 41 minutes. /TAMARA Voice ID: [id number] Report ID: [id number]
[2020-04-07] MEDS: HYDROCODONE/APAP 5/325 MG TAB PO PRN (23:30)
[2020-04-07 23:39] VITALS: O2SAT 94
[2020-04-08 05:23] VITALS: TEMP 97.2
[2020-04-08 05:59] LABS: Albumin 3.3 g/dL (3.4-5.0); Bilirubin Total 0.5 mg/dL (0.2-1.0); Potassium 4.3 mmol/L (3.5-5.1); Protein, Total 6.8 g/dL (6.4-8.2)
[2020-04-08 06:07] LABS: Basophils % 0.2 % (0-1.3); Hematocrit 33.5 % (39.6-49.0); Lymphocytes % 9.6 % (15.3-44.8); MPV 8.3 fL (7.6-11.3); RBC Red Blood Cell Count 3.23 M/uL (4.33-5.43)
[2020-04-08] MEDS: INSULIN -REGULAR HUMAN 50 UNIT/0.5 ML ML SQ SCH ×2 (07:30→11:30)
[2020-04-08] MEDS: CEFTRIAXONE/SWI 1gm 1 GM/10 ML SYR IVP SCH (08:13)
[2020-04-08] MEDS: HYDROCORTISONE SUC 100 MG INJ IV SCH (08:13)
[2020-04-08] MEDS: MIDODRINE HCL 5 MG TABLET PO SCH (08:13)
[2020-04-08] MEDS: INSULIN GLARGINE 100 UNITS/ML SQ SCH (08:13)
[2020-04-08] MEDS: CA ACETATE 667 MG CAP PO SCH ×2 (08:14→12:07)
[2020-04-08] MEDS: DOCUSATE NA 100 MG CAP PO SCH (08:14)
[2020-04-08] MEDS: FUROSEMIDE 40 MG TABLET PO SCH (08:14)
[2020-04-08] MEDS: APIXABAN 2.5 MG TABLET PO SCH (08:14)
[2020-04-08 08:22] VITALS: BP 93/52
[2020-04-08] MEDS ORDERED: OXYBUTYNIN ER 5 MG TAB PO ONE (12:00)
--- NOTE | 2020-04-08 15:05 | PN ---
Date of Progress Note: 04/08/2020 Patient seen and examined. Chart reviewed and case discussed with RN. Patient was discharged yester day; however, unable to go as his hemodialysis did not complete until after 8 p.m. No acute events o vernight. Medications: List reviewed. Physical Examination: Vital Signs: Temperature 97.2, heart rate 71, blood pressure 93/52, respirations 20, O2 94% on 1.5 L via nasal cannula. General: Awake, alert, oriented x3, elderly male. CV: S1, S2. Peripheral pulses present. Irregularly irregular rhythm. Respiratory: Diminished breath sounds in the right, otherwise moving air well on the left. No strid or. No wheezing. No use of accessory muscles. Gastrointestinal: Abdomen is soft, nontender, nondistended. Positive bowel sounds. Extremities: No clubbing or cyanosis. Patient has 2+ peripheral edema. Neuro: Nonfocal. Laboratory Data: Sodium 139, potassium 4.3, chloride 101, CO2 31, BUN 28, creatinine 3.49, glucose 1 04, calcium 9.2. WBC 10.8, H and H 11.1 and 33.5, platelets 208, neutrophils 83%. Blood cultures, n o growth to date. Body fluid cultures, no growth. Assessment: 74-year-old male with: 1.Hypotensive shock, resolved, currently requiring midodrine and steroids to keep blood pressure up. 2.Acute respiratory failure with hypercapnia secondary to pleural effusion. 3.Acute on chronic right pleural effusion status post chest tube placement and pleurodesis, now narendra pedro luis. 4.End-stage renal disease, on hemodialysis, stable. 5.Diabetes mellitus type 2, insulin dependent, with end-stage renal disease and hyperglycemia, stabl e. 6.Atrial fibrillation, chronic, permanent, on anticoagulation. 7.Chronic diastolic congestive heart failure, stable. 8.History of hepatitis C without coma, stable. 9.Acute cystitis with hematuria, treated with antibiotics. Cultures are negative. Plan: Discharge home with home health. Patient refused alf facility or rehab. Patient also complaining of some bladder spasms. His bladder scan showed 14 mL. Patient is on Cardura. He will have to reduce his dose and monitor his blood pressure. Hold medication if blood pressure less than 120 systolic. Patient can follow up with primary care physician for titration of his medication s. /TAMARA Voice ID: [id number] Report ID: [id number]
[2020-04-09] MEDS ORDERED: OXYBUTYNIN ER 5 MG TAB PO ONE (11:14)
== END 2020-04-08 12:13 | disposition home health service (06) | DRG 291 ==
LOC: ER 11:05 → ERHOLD 14:41 → 3RD-ICU 16:47 → 2ND 04-06 16:05
PROVIDERS: ADMIT Family Medicine; ATTEND Family Medicine
PROC: 06HY33Z Insertion of Infusion Device into Lower Vein, Percutaneous Approach (ICD-10-PCS; 2020-03-29)
PROC: 0W9930Z Drainage of Right Pleural Cavity with Drainage Device, Percutaneous Approach (ICD-10-PCS; principal; 2020-03-30)
PROC: 3E0L3GC Introduction of Other Therapeutic Substance into Pleural Cavity, Percutaneous Approach (ICD-10-PCS; 2020-04-04)
PROC: 5A1D70Z Performance of Urinary Filtration, Intermittent, Less than 6 Hours Per Day (ICD-10-PCS; 2020-04-05)
DX: I13.2 Hypertensive heart and chronic kidney disease with heart failure and with stage 5 chronic kidney disease, or end stage renal disease (principal); N18.6 End stage renal disease; I50.33 Acute on chronic diastolic (congestive) heart failure; J96.22 Acute and chronic respiratory failure with hypercapnia; R57.8 Other shock; J90 Pleural effusion, not elsewhere classified; E87.2 Acidosis; N25.81 Secondary hyperparathyroidism of renal origin; N30.01 Acute cystitis with hematuria; I48.92 Unspecified atrial flutter; I48.21 Permanent atrial fibrillation; E11.22 Type 2 diabetes mellitus with diabetic chronic kidney disease; Z88.5 Allergy status to narcotic agent; Z79.01 Long term (current) use of anticoagulants; Z79.899 Other long term (current) drug therapy; Z99.2 Dependence on renal dialysis; Z79.4 Long term (current) use of insulin; R79.89 Other specified abnormal findings of blood chemistry; E87.5 Hyperkalemia; D63.1 Anemia in chronic kidney disease; B18.2 Chronic viral hepatitis C; K59.00 Constipation, unspecified; E11.65 Type 2 diabetes mellitus with hyperglycemia
CPT/HCPCS: 36415; 71045; 71260; 76604; 80048; 80053; 80076; 81001; 82024; 82533; 82550; 82553; 82805; 82947; 83735; 83880; 84100; 84145; 84484; 84550; 85025; 85610; 85730; 87015; 87040; 87070; 87086; 87088; 87102; 87116; 87206; 88108; 88305; 89050; 90935; 93005; 93306; 94660; 97116; 97161; 97530; 99285; J0696; J0834; J1265; J1610; J1644; J1720; J1815; J1940; J2405; J2550; J3411; J7030; J7060; P9047; Q9967

== ENCOUNTER 2020-04-22 10:31 | Emergency (ER) | payer OTHER ==
[2020-04-22] MEDS ORDERED: EPINEPHrine 1 MG/10 ML SYR IV ONE (10:32)
[2020-04-22] MEDS ORDERED: LIDOCAINE 100 MG/5 ML SYRINGE IV ONE (10:32)
--- OUTSIDE RECORDS SUMMARY | 2020-04-22 12:28 | XMS REPORT | Continuity of Care Document ---
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 12/29/18 Family History No Data Provided for This Section Advance Directives No Data Provided for This Section Functional Status No Data Provided for This Section
--- NOTE | 2020-04-22 12:56 | EDPHYS ---
Physician Documentation [facility] Name: Bill Thorpe Age: 74 yrs Sex: Male : 1945 Arrival Date: 04/22/2020 Time: 10:35 Bed 1 Private MD: ED Physician Cameron Garcia HPI: 04/22 10:42 This 74 yrs old Male presents to ER via Unassigned with complaints of CPR. [facility] 10:42 Preceding the arrest, the patient was found down by family. The arrest occurred at [facility]. Pre-hospital course: The arrest was not witnessed by others. Bystanders at the scene did not perform CPR. EMS care prior to arrival: initiation of ACLS, peripheral IV, Intraosseous line. intubation was successfully performed, oxygen, 100% by ET tube. C-collar, backboard, EMS on scene time was unknown. Time elapsed prior to ACLS is unknown. ACLS has been in progress for 36 minutes. ACLS details: Initial rhythm was V-fib. The presenting rhythm is V-tach. Airway: oral intubation, Medications given by EMS prior to arrival - Epinephrine IV x 4 doses, Sodium Bicarbonate, Defibrillated X 4, an external pacer was not used, Response to therapy: continued arrest. Unable to obtain HPI due to comatose state. Per EMS family found patient unresponsive. Upon arrival patient in chair unresponsive. Found to be in ventricular fibrillation. EMS gave shock then found ventricular tachycardia. Additional shocks given and Epinephrine 4 doses total with continued chest compressions. Also given Sodium bicarbonate. Upon arrival to ED given additional shock and Lidocaine for ventricular tachycardia without pulse. Patient continued in PEA without response. Patient without spontaneous respirations, spontaneous heart beat or pulse, response to any stimuli, and with fixed and dilated pupils. CPR discontinued and patient pronounced \T\ 10:40 AM.. Historical: - Allergies: 10:58 Morphine; sv 10:59 Unable to obtain; ss - Home Meds: 10:59 Unable to obtain [Active]; ss - PMHx: 10:58 Atrial Fib; Diabetes - IDDM; ESRD; Fracture to sternum; Hepatitis; Hypertension; sv Irregular heart rate; leaking heart valve; 10:59 Unable to obtain; ss - PSHx: 10:58 cataract sx; sv 10:59 Unable to obtain; ss - Immunization history:: Adult Immunizations unknown. - Social history:: Smoking status: unknown. ROS: 10:42 Unable to obtain ROS due to comatose state. mh7 Exam: 10:42 Head/Face: Normocephalic, atraumatic. mh7 10:42 Constitutional: The patient appears comatose. 10:42 Eyes: Pupils: are fixed and dilated. 10:42 ENT: ETT in place. 10:42 Neck: C-spine: C-collar placed REGISTERED NURSE STEP DOWN, Back board REGISTERED NURSE STEP DOWN Trachea: is midline with no obvious abnormalities. 10:42 Chest/axilla: Inspection: normal, Palpation: is normal, Axilla: are normal, Lymph nodes: lymphadenopathy is not appreciated. 10:42 Cardiovascular: Rate: No spontaneous pulse, Pulses: not palpable, Heart sounds: Absent. 10:42 Respiratory: Intubated, Respirations: No spontaneous respirations, Breath sounds: equal bilaterally with bagging. 10:42 Abdomen/GI: Inspection: obese Bowel sounds: absent, in all quadrants, Palpation: no appreciated organomegaly, no masses. 10:42 Skin: pale. 10:42 Neuro: Orientation: unable to test, the patient is comatose, Mentation: unable to test, the patient is comatose, Memory: unable to test, the patient is comatose, Cranial nerves: unable to test, the patient is comatose, Cerebellar function: unable to test, the patient is comatose, Motor: unable to test, the patient is comatose, Sensation: unable to test, the patient is comatose. Vital Signs: 10:30 Pulse 0; Resp 20 A; ss 10:57 Temp 97.8(R); sv MDM: 10:[address] [facility] 10:42 Differential diagnosis: arrythmia, cardiac arrest, respiratory arrest, traumatic mh7 injury, overdose, asphyxiation, renal failure. Data reviewed: vital signs, nurses notes, EMS record. ED course: Patient continued in PEA after total CPR time of \T\40 minutes without response to treatment or signs of life. CPR discontinued and patient pronounced \T\ 10:40 AM.. 04/22 11:00 Order name: Glucose, Ancillary Testing EDMS Administered Medications: 10:30 Drug: NS 0.9% 1000 ml {Note: L IO.} Route: IV; Rate: 1000 ml; Site: Other; ss 10:40 Follow up: IV Status: Order to discontinue infusion sv 10:34 Drug: Lidocaine (2 %) Syringe 100 mg {Note: to L IO.} Volume: 5 ml; Route: Infiltration; 10:40 Follow up: Response: No adverse reaction sv Disposition: 10:42 . 7 Disposition: Patient pronounced on 04/22/20 10:40 by Cameron Garcia. Impression: Cardiopulmonary resuscitation, Pulseless Electrical Activity. - Released to Home. Signatures: Dispatcher [employer] Minal Edwards RN RN sv Smirch, Shelby, RN RN ss Cameron Garcia MD MD mh7 Corrections: (The following items were deleted from the chart) 15:20 12:55 04/22/2020 12:55 Patient pronounced on 04/22/2020 at 10:40 by Cameron Garcia. sv Impression: Cardiopulmonary resuscitation; Pulseless Electrical Activity. Released to Home. 7
--- NOTE | 2020-04-22 12:56 | ER ---
Nurse's Notes [facility] Name: Bill Thorpe Age: 74 yrs Sex: Male : 1945 Arrival Date: 04/22/2020 Time: 10:35 Bed 1 Private MD: Diagnosis: Cardiopulmonary resuscitation;Pulseless Electrical Activity Presentation: 04/22 10:30 Chief complaint: EMS states: Family reportedly checks on patient at home every 5 ss minutes. Patient was found not breathing sitting in chair. Family called 911 at 0946. CPR initiated by EMS personnel . Initial rhythm VFIB, after first shock asystole, after second shock VTACH. EMS shocked patient en route to ED x4. EPI x4 administered and 1 amp BICARB. ET tube in place. Care prior to arrival: CPR en route VIA autopulse. Compressions began at 09:50. 10:30 Method Of Arrival: EMS: [facility] ss 10:30 Acuity: KRUPA 1 ss 10:30 Coronavirus screen:. Ebola Screen: Unable to complete the Ebola screening because: ss Patient is intubated. Initial Sepsis Screen:. Onset of symptoms is unknown. 11:11 Note Pt intubated en route VIA 7.5 ET TUBE. BGL 98 en route. Bilateral IO in place to ss tibia. 11:20 Initial Sepsis Screen: Does the patient meet any 2 criteria? No. Patient's initial sv sepsis screen is negative. Does the patient have a suspected source of infection? No. Patient's initial sepsis screen is negative. Risk Assessment: Do you want to hurt yourself or someone else? Unable to obtain. Historical: - Allergies: 10:58 Morphine; sv 10:59 Unable to obtain; ss - Home Meds: 10:59 Unable to obtain [Active]; ss - PMHx: 10:58 Atrial Fib; Diabetes - IDDM; ESRD; Fracture to sternum; Hepatitis; Hypertension; sv Irregular heart rate; leaking heart valve; 10:59 Unable to obtain; ss - PSHx: 10:58 cataract sx; sv 10:59 Unable to obtain; ss - Immunization history:: Adult Immunizations unknown. - Social history:: Smoking status: unknown. Screenin:20 Abuse screen: unable to complete. Nutritional screening: unable to complete . sv Tuberculosis screening: unable to complete . Fall Risk None identified. Assessment: 10:30 CPR assessment: unresponsive, intubated, Ambu ventilation. Cardiac rhythm is V tach. ss 10:30 Respiratory: Airway via oral intubation. GI: Abdomen is round distended. Derm: Bruising sv that is dark purple, on abdomen and pelvis. 10:31 Reassessment: cardiac rhythm is VTACH. *SHOCKED* CPR resumed. ss 10:33 Reassessment: PULSE CHECK: No pulse. CPR resumed. ss 10:35 Reassessment: PULSE CHECK: No pulse, PEA. CPR resumed. ss 10:37 Reassessment: PULSE CHECK: No pulse, PEA. CPR resumed. ss 10:40 Reassessment: Pulse check: No pulse, PEA. Time of called by Dr. Garcia. ss 11:09 Reassessment: [facility] called and informed of . Stated pt is not a candidate d/t sv hepatitis. Case # [id number]. 11:15 Reassessment: [employer] and [employer] at the bedside. sv Vital Signs: 10:30 Pulse 0; Resp 20 A; ss 10:57 Temp 97.8(R); sv ED Course: 10:30 call center professional on. Pulse ox on. NIBP on. sv 10:30 Maintain EMS IV. Dressing intact. Site clean \T\ dry. bilateral IO to the left and right sv leg. 10:35 Patient arrived in ED. mr 10:40 Patient has correct armband on for positive identification. sv 10:41 Cameron Garcia MD is Attending Physician. [facility] 10:45 Police Department/ [employer] called/ [employer] will be paged per dispatch. eb 10:55 Triage completed. ss 10:56 Minal Young, YOSELIN is Primary Nurse. sv 10:59 Arm band placed on left wrist. ss 11:21 No provider procedures requiring assistance completed. IV not taken out. sv 12:53 Cameron Garcia MD is Pronouncing Provider. 7 Administered Medications: 10:30 Drug: NS 0.9% 1000 ml {Note: L IO.} Route: IV; Rate: 1000 ml; Site: Other; ss 10:40 Follow up: IV Status: Order to discontinue infusion sv 10:34 Drug: Lidocaine (2 %) Syringe 100 mg {Note: to L IO.} Volume: 5 ml; Route: Infiltration;ss 10:40 Follow up: Response: No adverse reaction sv Outcome: 15:19 Patient : Time of 10:40 Pronounced by Cameron Garcia MD Body to sv home. 15:19 Condition: 15: Instructed on 15:20 Patient left the ED. sv Signatures: Minal Young RN RN Solis, Hilary Becerril, Anupama, RN RN Yanely Szymanski Maurice, MD MD mh7 Corrections: (The following items were deleted from the chart) 11: 10:30 CPR assessment: unresponsive, intubated, Ambu ventilation, [facility] 11: 10:30 Reassessment: cardiac rhythm is VTACH. *SHOCKED* CPR resumed. [facility] 11:17 11:09 Reassessment: [facility] called and informed of . Stated pt is not a candidate sv d/t hepatitis sv
[2020-04-22 15:24] VITALS: TEMP 97.8
== END 2020-04-22 15:20 | disposition expired ==
LOC: ER 10:31
DX: I46.9 Cardiac arrest, cause unspecified (principal); I12.0 Hypertensive chronic kidney disease with stage 5 chronic kidney disease or end stage renal disease; E11.22 Type 2 diabetes mellitus with diabetic chronic kidney disease; N18.6 End stage renal disease; K75.9 Inflammatory liver disease, unspecified; Z88.5 Allergy status to narcotic agent
CPT/HCPCS: 82947; 92950; 99291; 99292; J0171